=== PATIENT | female | born 1955 | race Caucasian/White ===

== ENCOUNTER 2016-10-29 15:06 | Emergency (ER) | payer BC ==
--- NOTE | 2016-10-29 17:16 | ED ---
General Adult HPI - General Chief complaint: Headache Stated complaint: severe headache-sent by Time Seen by Provider: 10/29/16 16:40 Source: patient, family, RN notes reviewed Mode of arrival: ambulatory Limitations: no limitations - History of Present Illness Initial comments: Plan and history of present illness this is a 60-year-old female here with her significant other. The patient reports she's had on-again off-again for several weeks developing symptoms of trigeminal neuralgia on the left side of her face just lateral to her right eye. The patient reports that she get an acute stabbing-type sensation that lasts only 1 or 2 seconds makes her close her eye and then it goes away. Occasionally triggered by opening her mouth wide. No pain to the TMJ otherwise. No other complaints no other symptoms and neurologically intact. No trauma. - Related Data Home Medications Medication Instructions Recorded Confirmed Cholecalciferol [Vitamin D3] 2,000 units PO DAILY 10/29/16 10/29/16 Ibuprofen [Advil] 200 mg PO Q8HR PRN 10/29/16 10/29/16 Multivitamins, Thera [Multivitamin 1 tab PO DAILY 10/29/16 10/29/16 (formulary)] Ubidecarenone [Co Q-10] 100 mg PO DAILY 10/29/16 10/29/16 Vitamin B Complex 1 cap PO DAILY 10/29/16 10/29/16 Previous Rx's Medication Instructions Recorded carBAMazepine [carBAMazepine ER] 200 mg PO BID #60 cpmp.12hr 10/29/16 Allergies Allergy/AdvReac Type Severity Reaction Status Date / Time amoxicillin [From Augmentin] Allergy SEVERE Verified 10/29/16 16:44 YEAST INFECTION clavulanic acid Allergy SEVERE Verified 10/29/16 16:44 [From Augmentin] YEAST INFECTION red dye Allergy Unknown Verified 10/29/16 16:44 Review of Systems ROS Statement: Those systems with pertinent positive or pertinent negative responses have been documented in the HPI. Review of systems patient otherwise denies any headache other than the one to 2 seconds of the lancinating pain she has when she has the patella room symptoms. This can coming go frequently or slows down entirely. But tends to be increasing of late. No balance problems no visual acuity changes no nausea no vomiting no sweats. No chest pain shows breath GI/ problems no neuro deficits other than tic douloureux. Patient never had any problems with left side of the face, no trauma no infections. All systems reviewed. Past medical problems none. Surgeries a randall in her right femur. Also fracture to her left wrist. She's also had tonsillectomy. Family history strokes and diabetes. Patient has an ALLERGY describes Augmentin because of vaginal yeast infection. The patient quit smoking May of this year. Denies alcohol use. ROS Other: All systems not noted in ROS Statement are negative. Past Medical History Past Medical History: No Reported History History of Any Multi-Drug Resistant Organisms: None Reported Past Surgical History: Orthopedic Surgery Past Psychological History: No Psychological Hx Reported Smoking Status: Former smoker Past Alcohol Use History: None Reported Past Drug Use History: None Reported General Exam - General Exam Comments Initial Comments: General: The patient is awake and alert, patient gets acute sharp pains the last 1-3 seconds at most just to the lateral aspect of her left eye. Not to the forehead not to the jaw area. Vital signs show temperature 98.0 pulse 80 respiratory rate 20 pulse ox 90% room air blood pressure 135/101. Eye: Pupils are equal, round and reactive to light, extra-ocular movements are intact ; there is normal conjunctiva bilaterally. No signs of icterus. Ears, nose, mouth and throat: There are moist mucous membranes and no oral lesions. No tooth problems. Neck: The neck is supple, there is no tenderness , no anterior cervical lymphadenopathy. No carotid bruit. Cardiovascular: There is a regular rate and rhythm. No murmur, rub or gallop is appreciated. Respiratory: Lungs are clear to auscultation, respirations are non-labored, breath sounds are equal. No wheezes, stridor, rales, or rhonchi. Gastrointestinal: No abdominal pain no nausea no vomiting no diarrhea. Back: There is no tenderness to palpation in the midline. There is no obvious deformity. No rashes noted. Musculoskeletal: Normal ROM, no tenderness, There is no pedal edema. There is no calf tenderness or swelling. Sensation intact. Neurological: CN II-XII intact, There are no obvious motor or sensory deficits. Coordination appears grossly intact. Speech is normal. Focal or lateralizing findings. Skin: Skin is warm and dry and no rashes or lesions are noted. No rashes. Early shingles was discussed but not noted. Limitations: no limitations Course Vital Signs 10/29/16 15:22 Temperature 98.0 F Pulse Rate 80 Respiratory 20 Rate Blood Pressure 135/101 O2 Sat by Pulse 98 Oximetry Medical Decision Making - Medical Decision Making Decision-making this time appears to the patient does have a tic douloureux or trigeminal neuralgia of the ophthalmic branch. No other pathology is noted in that around the ear I for head or mandible. Plan the patient will be referred onto her family physician and a neurologist. She'll be placed on carbamazepine 200 mg twice a day. Advised return emergency room as needed. Disposition Clinical Impression: Tic douloureux Disposition: HOME SELF-CARE Condition: Fair Instructions: Trigeminal Neuralgia (ED) Additional Instructions: Take medications as directed follow with family physician and on-call neurologist Prescriptions: carBAMazepine [carBAMazepine ER] 200 mg PO BID #60 cpmp.12hr Referrals: Dmitriy Miller DO [Primary Care Provider] - 1-2 days Helena Fragoso MD [STAFF PHYSICIAN] - 1-2 days Time of Disposition: 17:15
[2016-10-29 17:25] VITALS: RESP 18; TEMP 98.1
[2016-10-29] MEDS ORDERED: cloNIDine HCL 0.1 MG TAB PO STA (17:25)
[2016-10-29 18:01] VITALS: BP 154/83; PULSE 63
== END 2016-10-29 18:10 | disposition home or self-care (01) ==
LOC: EC 15:06
DX: G50.0 Trigeminal neuralgia (principal); Z87.891 Personal history of nicotine dependence; Z79.899 Other long term (current) drug therapy; Z88.0 Allergy status to penicillin; Z91.09 Other allergy status, other than to drugs and biological substances
CPT/HCPCS: 99283

== ENCOUNTER → 2017-02-04 | Outpatient (CLI) | payer BC ==
--- NOTE | 2017-02-04 09:18 | XR ---
EXAMINATION TYPE: XR thoracic spine complete DATE OF EXAM: 02/04/2017 COMPARISON: Correlation chest 02/15/2015 HISTORY: 61 year-old female recurrent thoracic. TECHNIQUE: 3 views FINDINGS: Vertebral compression deformity of T5 vertebral body with anterior wedging and 75% overall anterior h eight loss, new from 2014. Additional mild inferior endplate compression deformity of T8 with endplat e sclerosis. Additional mild endplate spondylosis is seen throughout. Alignment appears maintained. IMPRESSION: Age-indeterminate vertebral compression deformity of T5 though noted to be new from 2014. Additional mild inferior endplate compression injury of T8 is also age indeterminate but new from 2014. Correlat e for focal pain at these levels. Also, correlate for etiology.
== END ==
LOC: RADXRYALE 08:54
PROVIDERS: ATTEND Physician Assistant Medical
DX: M54.6 Pain in thoracic spine (principal)
CPT/HCPCS: 72072

== ENCOUNTER 2018-04-21 09:29 | Day surgery (SDC) | payer BC ==
[2018-04-18 10:04] VITALS: BMI 20.1
[~2018-04-21 09:29] MED LIST: LACTATED RINGERS 1,000 ML IV SCH; LIDOCAINE 1% 20 ML VIAL (10MG/ML) FOR IV START INTRADERMA PRN
[2018-04-21 09:58] VITALS: TEMP 98
[2018-04-21] MEDS ORDERED: PROPOFOL 10 MG/ML 20 ML VIAL IV ONE (11:29)
--- NOTE | 2018-04-21 11:55 | P.PCN ---
Date of Procedure: 04/21/18 Procedure(s) Performed: Procedure: Total colonoscopy. Preoperative diagnosis: Screening for neoplasia. Postoperative diagnosis: Exam within normal limits. Preparation: HalfLytely prep. Sedation: Was provided by anesthesia. Brief clinical history: The patient is a 62-year-old female who is scheduled for this evaluation for screening for neoplasia age being her risk factor. There is no family history of colon cancer. The patient has no abdominal complaints, bleeding or anemia. This would be her first colonoscopy. Procedure: With the patient on her left lateral decubitus position and after informed consent and adequate sedation, the perianal area was inspected and it did not show any fissures or fistulas. There were no masses felt on digital rectal examination. The Olympus CFQ 180L video colonoscope was then inserted in the rectum in the usual fashion and advanced to the cecum. The mucosa appeared healthy. No polyps or tumors were seen or any obvious diverticular disease or other pathology. I retroflexed the endoscope in the rectum before the endoscope was withdrawn. The patient tolerated the procedure well. Plan: The patient was reassured. She will follow-up with you as planned and I recommended repeat exam in 10 years.
[2018-04-21] MEDS ORDERED: ONDANSETRON 4 MG/2 ML VIAL IVP ONE (12:08)
[2018-04-21 12:43] VITALS: BP 166/79; PULSE 71; RESP 16
== END 2018-04-21 13:02 | disposition home or self-care (01) ==
LOC: ORWHC2ENDO 09:29
DX: Z12.11 Encounter for screening for malignant neoplasm of colon (principal); R01.1 Cardiac murmur, unspecified; Z88.0 Allergy status to penicillin; Z91.048 Other nonmedicinal substance allergy status; Z87.891 Personal history of nicotine dependence
CPT/HCPCS: J2405; J2704; G0121

== ENCOUNTER → 2019-01-05 | Outpatient (CLI) | payer MEDICARE ==
--- NOTE | 2019-01-05 16:02 | XR ---
EXAMINATION TYPE: XR knee complete RT DATE OF EXAM: 01/05/2019 COMPARISON: NONE HISTORY: 63-year-old female with mid to lateral knee pain after fall 2 days ago TECHNIQUE: 3 views FINDINGS: Extensor mechanism appears intact. No acute fracture seen. However, there is a small underlying joint effusion. Osteopenia. IMPRESSION: 1. Osteopenia. 2. No acute osseous abnormality seen. 3. However, there is a small knee joint effusion. If concern for internal derangement, MRI can be per formed.
== END | disposition home or self-care (01) ==
LOC: RADXRYALE 11:25
PROVIDERS: ATTEND Family Medicine
DX: M85.88 Other specified disorders of bone density and structure, other site (principal); M25.561 Pain in right knee

== ENCOUNTER → 2019-02-25 | Outpatient (CLI) | payer MEDICARE ==
--- NOTE | 2019-02-25 14:43 | US ---
EXAMINATION TYPE: US pelvic complete DATE OF EXAM: 02/25/2019 COMPARISON: NONE CLINICAL HISTORY: R10.2 Pelvic pain. Patient states during a doctor exam, doctor pressed on right tr e and it hurt. Partial hysterectomy x 20 years ago. Patient states she thinks she still has both ov watson TECHNIQUE: Transabdominal (TA). Transabdominal sonographic images of the pelvis were acquired Patient declined transvaginal exam Date of LMP: Partial hysterectomy EXAM MEASUREMENTS: Right Ovary: Not visualized Left Ovary: Not visualized 1. Uterus: Surgically absent 2. Endometrium: Surgically absent 3. Right Ovary: Obscured by overlying bowel gas 4. Left Ovary: Obscured by overlying bowel ga 5. Bilateral Adnexa: peristalsing bowel 6. Posterior cul-de-sac: No free fluid IMPRESSION: Surgical absence of the uterus. The ovaries are not seen, likely partially related to atr ophy as well as overlying bowel gas. Patient declined transvaginal exam to further attempt to visuali ze the ovaries.
== END | disposition home or self-care (01) ==
LOC: RADUSWWP 13:10
PROVIDERS: ATTEND Obstetrics & Gynecology
DX: R10.2 Pelvic and perineal pain (principal); Z90.710 Acquired absence of both cervix and uterus
CPT/HCPCS: 76856

== ENCOUNTER → 2019-03-19 | Outpatient (CLI) | payer MEDICARE ==
--- NOTE | 2019-03-19 16:25 | BD ---
EXAMINATION TYPE: Axial Bone Density DATE OF EXAM: 03/19/2019 COMPARISON: NONE CLINICAL HISTORY: 63-year-old female postmenopausal screening Height: 4 FT 11 1/2 IN Weight: 99 FRAX RISK QUESTIONS: History of Fracture in Adulthood: YES Secondary Osteoporosis: 3. Menopause before 45: UNSURE Rheumatoid Arthritis: YES Current Tobacco Use: YES RISK FACTORS HISTORY OF: Hip Fracture (Right/Left): RT AND LT When: RT 2005 LT 2015 History of Wrist Fracture: LEFT WRIST When: 2005 OR 2006 Surgery to Spine/Hip(right/left)/Wrist (right/left): YOLANDA HIP SURG When: 2005 AND 2015 Active: YES Postmenopausal woman: PART HYST 2002 OR 2003 Lost more than 2 inches in height since high school: YES MEDICATIONS: Additional Medications: NONE Additional History: EXAM MEASUREMENTS: Bone mineral densitometry was performed using the Thrinacia System. Bone mineral density as measured about the Lumbar spine is: ----- L1-L4(G/cm2): 0.714 T Score Values are as follows: ----- L2: -4.1 ----- L3: -4.0 ----- L4: -3.1 ----- L1-L4: -3.9 Bone mineral density has: DECREASED -6.2 SINCE STUDY OF 2014 Bone mineral density about the R Wrist (g/cm2): 0.294 T Score values are as follows: -----Dist. R+U: -6.5 -----Prox. R+U: -4.5 -----Radius total: -6.3 FIRST TIME WRIST HAS BEEN DONE IMPRESSION: Osteoporosis (T Score less than -2.5). There is increased fracture risk and therapy is usually indicated based on age. Re-Screen 1-2 years. NOTE: T-SCORE=SD OF THE YOUNG ADULT MEAN.
--- NOTE | 2019-03-20 14:03 | MM ---
Reason for exam: screening (asymptomatic). Last mammogram was performed 3 years and 10 months ago. History: Patient is postmenopausal. Family history of breast cancer in sister at age 50. Physical Findings: A clinical breast exam by your physician is recommended on an annual basis and results should be correlated with mammographic findings. MG 3D Screening Mammo W/Cad Bilateral CC and MLO view(s) were taken. Prior study comparison: May 24, 2015, bilateral MG screening mammo w CAD. Finding: There are faint, fine, regional calcifications in the middle position of the left breast on CC view. There is a chronic nodularity bilaterally. New finding since May 24, 2015. ASSESSMENT: Incomplete: need additional imaging evaluation, BI-RAD 0 RECOMMENDATION: Special view mammogram of the left breast. [facility] will attempt to contact patient to return for supplemental views.
== END | disposition home or self-care (01) ==
LOC: RADMAMWWP 14:13
PROVIDERS: ATTEND Obstetrics & Gynecology
DX: Z12.31 Encounter for screening mammogram for malignant neoplasm of breast (principal); M81.0 Age-related osteoporosis without current pathological fracture; N95.1 Menopausal and female climacteric states
CPT/HCPCS: 77063; 77067; 77080

== ENCOUNTER → 2019-04-06 | Outpatient (CLI) | payer MEDICARE ==
--- NOTE | 2019-04-06 10:12 | MM ---
Reason for exam: additional evaluation requested from abnormal screening. Last mammogram was performed 1 month ago. History: Patient is postmenopausal. Family history of breast cancer in sister at age 50. Physical Findings: Nurse did not find any significant physical abnormalities on exam. MG 3D Work Up W/Cad LT CC with magnification, ML with magnification, and ML view(s) were taken of the left breast. Prior study comparison: March 19, 2019, bilateral MG 3d screening mammo w/cad. May 24, 2015, bilateral MG screening mammo w CAD. The breast tissue is heterogeneously dense. This may lower the sensitivity of mammography. There is chronic nodularity in the left breast. A few faint punctate calcifications are suggested on the magnification CC view. Approximately 3 calcifications in each of two small groups. Not seen well on the lateral view. 6 month follow up recommended. These results were verbally communicated with the patient and result sheet given to the patient on 04/06/19. ASSESSMENT: Probably benign, BI-RAD 3 RECOMMENDATION: Follow-up diagnostic mammogram of the left breast in 6 months.
== END | disposition home or self-care (01) ==
LOC: RADMAMWWP 09:05
PROVIDERS: ATTEND Obstetrics & Gynecology
DX: R92.8 Other abnormal and inconclusive findings on diagnostic imaging of breast (principal)
CPT/HCPCS: 77065; G0279; 77061

== ENCOUNTER → 2019-07-29 | Outpatient (CLI) | payer MEDICARE ==
--- NOTE | 2019-07-29 11:59 | XR ---
EXAMINATION TYPE: XR sternum DATE OF EXAM: 07/29/2019 COMPARISON: NONE HISTORY: Right upper rib and sternal pain after fall yesterday TECHNIQUE: 2 views of the sternum were obtained FINDINGS: There is mild diffuse osseous demineralization slightly limiting the exam. Numerous costoch ondral calcifications also slightly limited exam. No gross acute displaced sternal fracture is seen. Questionable mid thoracic compression deformities (2 in number). IMPRESSION: 1. No gross evidence of acute displaced sternal fracture, slightly limited as described above. 2. Questionable mid thoracic compression deformities. Recommendation is for further evaluation with thoracic spine x-rays.
--- NOTE | 2019-07-29 12:10 | XR ---
EXAMINATION TYPE: XR ribs RT w pa chest xray DATE OF EXAM: 07/29/2019 CLINICAL HISTORY: Right upper anterior rib pain after fall TECHNIQUE: Single frontal view of the chest is obtained. 2 views of the right ribs were also obtained . COMPARISON: None FINDINGS: There is no focal air space opacity, pleural effusion, or pneumothorax seen. The cardiac silhouette size is within normal limits. The osseous structures are intact. Old healed rib fracture deformity is seen of the anterior lateral margin of rib 10 on the right. No acute displaced right ri b fractures seen. Mild diffuse osseous demineralization. Questionable mid thoracic compression deform ities IMPRESSION: 1. No acute displaced right rib fracture or acute cardiopulmonary process seen. Old healed fracture d eformity of the anterolateral margin of rib 10 on the right is subtle. 2. Questionable mid thoracic compression deformities. Recommendation is for further evaluation with thoracic spine x-rays.
== END | disposition home or self-care (01) ==
LOC: RADXRYALE 11:11
PROVIDERS: ATTEND Physician Assistant Medical
DX: M81.0 Age-related osteoporosis without current pathological fracture (principal); R07.89 Other chest pain; Z87.81 Personal history of (healed) traumatic fracture
CPT/HCPCS: 71120

== ENCOUNTER → 2020-04-27 | Outpatient (CLI) | payer MEDICARE ==
--- NOTE | 2020-04-28 10:29 | MM ---
Reason for exam: additional evaluation requested from prior study. Last mammogram was performed 1 year and 1 month ago. History: Patient is postmenopausal. Family history of breast cancer in sister at age 50. Physical Findings: Nurse did not find any significant physical abnormalities on exam. MG 3D Diag Mammo W/Cad YOLANDA Bilateral CC and MLO view(s) were taken. Prior study comparison: April 06, 2019, left breast MG 3d work up w/cad LT. March 19, 2019, bilateral MG 3d screening mammo w/cad. There are scattered fibroglandular densities. Finding: There is an intermediate concern, suspicious irregular mass in the upper outer quadrant of the right breast. New finding since April 06, 2019 and March 19, 2019. These results were verbally communicated with the patient and result sheet given to the patient on 04/27/20. ASSESSMENT: Incomplete: need additional imaging evaluation, BI-RAD 0 RECOMMENDATION: Ultrasound of the right breast.
--- NOTE | 2020-04-28 10:36 | USB ---
Reason for exam: additional evaluation requested from abnormal screening. History: Patient is postmenopausal. Family history of breast cancer in sister at age 50. US Breast Limited RT Right limited breast ultrasound including focal area of concern, retroareolar and axilla demonstrates a 0.6 x 0.3 x 0.8cm oval, solid lymph node at 9 o'clock. These results were verbally communicated with the patient and result sheet given to the patient on 04/27/20. ASSESSMENT: Benign, BI-RAD 2 RECOMMENDATION: Routine screening mammogram of both breasts in 1 year.
== END | disposition home or self-care (01) ==
LOC: RADMAMWWP 13:38
PROVIDERS: ATTEND Obstetrics & Gynecology
DX: R92.8 Other abnormal and inconclusive findings on diagnostic imaging of breast (principal)
CPT/HCPCS: 77066; 76642; G0279; 77062

== ENCOUNTER 2020-06-14 18:05 | Emergency (ER) | payer MEDICARE ==
[2020-06-14 18:11] VITALS: RESP 18; TEMP 97.7
--- NOTE | 2020-06-14 18:28 | ED ---
Lower Extremity Injury HPI - General Source: patient Mode of arrival: wheelchair Limitations: no limitations <Ryan Keane - Last Filed: 06/14/20 20:14> <Francia Weiner - Last Filed: 06/14/20 23:59> - General Chief Complaint: Extremity Injury, Lower Stated Complaint: fall/ankle injury Time Seen by Provider: 06/14/20 18:11 - History of Present Illness Initial Comments: 64-year-old male presenting to the emergency room with a chief complaint of ankle pain. Patient reports incident occurred about one hour prior to arrival. Patient states she was walking down the stairs to her basement when on the last step, she had an right inversion injury. She denies any numbness or tingling. Patient does have history of fractures. Patient does report taking ibuprofen which helped alleviate the discomfort. Patient does not want any pain medication at this time. She states the pain is about a 5 and sharp (Ryan Keane) - Related Data Home Medications Medication Instructions Recorded Confirmed Ibuprofen [Advil] 400 mg PO Q8HR PRN 04/18/18 06/14/20 Multivit with Calcium,Iron,Min 1 tab PO DAILY 04/18/18 06/14/20 [Women's Multivitamin] Calcium Citrate/Vitamin D3 2 tab PO DAILY 06/14/20 06/14/20 [Citracal + D Maximum Caplet] Cholecalciferol [Vitamin D3 (25 25 mcg PO DAILY 06/14/20 06/14/20 Mcg = 1000 Iu)] Estradiol Cream [Estrace Cream 2 gm VAGINAL DIRECTED 06/14/20 06/14/20 0.01%] Allergies Allergy/AdvReac Type Severity Reaction Status Date / Time red dye Allergy Unknown Verified 06/14/20 18:40 amoxicillin [From Augmentin] AdvReac SEVERE Verified 06/14/20 18:40 YEAST INFECTION clavulanic acid AdvReac SEVERE Verified 06/14/20 18:40 [From Augmentin] YEAST INFECTION pumpkin seeds Allergy Swelling Uncoded 06/14/20 18:11 Review of Systems ROS Other: All systems not noted in ROS Statement are negative. <Ryan Keane - Last Filed: 06/14/20 20:14> ROS Other: All systems not noted in ROS Statement are negative. <Francia Weiner - Last Filed: 06/14/20 23:59> ROS Statement: Those systems with pertinent positive or pertinent negative responses have been documented in the HPI. Past Medical History Past Medical History: No Reported History Additional Past Medical History / Comment(s): hx. heart murmur-no tx. for History of Any Multi-Drug Resistant Organisms: None Reported Past Surgical History: Orthopedic Surgery Additional Past Surgical History / Comment(s): ORIF right femur, ORIF left hip fx., ORIF left wrist Past Anesthesia/Blood Transfusion Reactions: No Reported Reaction Past Psychological History: No Psychological Hx Reported Smoking Status: Current every day smoker Past Alcohol Use History: None Reported Past Drug Use History: None Reported - Past Family History Father Family Medical History: Diabetes Mellitus Mother Family Medical History: Diabetes Mellitus, Hypertension <Ryan Keane Last Filed: 06/14/20 20:14> General Exam Limitations: no limitations General appearance: alert, in no apparent distress Head exam: Present: atraumatic, normocephalic, normal inspection Eye exam: Present: normal appearance, PERRL, EOMI Pupils: Present: normal accommodation ENT exam: Present: normal exam, normal oropharynx, mucous membranes moist Neck exam: Present: normal inspection, full ROM. Absent: tenderness Respiratory exam: Present: normal lung sounds bilaterally. Absent: wheezes, rales Cardiovascular Exam: Present: regular rate, normal rhythm, normal heart sounds Extremities exam: Present: tenderness (Medial and lateral malleoli tenderness. No midfoot or fifth metatarsal tenderness.), normal capillary refill, other (Palpable DP and PT bilaterally.). Absent: normal inspection (Mild swelling noted on the lateral malleolus of the right foot.), full ROM (Limited range of motion with inversion and plantar and dorsiflexion of the right foot), pedal edema, joint swelling, calf tenderness Back exam: Present: normal inspection, full ROM Neurological exam: Present: alert, oriented X3 Psychiatric exam: Present: normal affect, normal mood Skin exam: Present: warm, dry, intact, normal color <Ryan Keane Last Filed: 06/14/20 20:14> Course Vital Signs 06/14/20 06/14/20 18:09 19:26 Temperature 97.7 F Pulse Rate 100 99 Respiratory 18 18 Rate Blood Pressure 192/80 168/97 O2 Sat by Pulse 100 98 Oximetry Procedures - Orthopedic Splinting/Casting Injury #1 Side: right Lower Extremity Injury Location: short leg Lower Extremity Immobilizer: posterior splint, stirrup splint, Buddy wrap, synthetic pre-padded splint Other Orthopedic Equipment: crutches <Ryan Keane - Last Filed: 06/14/20 20:14> Medical Decision Making <Ryan Keane - Last Filed: 06/14/20 20:14> <Francia Weiner - Last Filed: 06/14/20 23:59> - Medical Decision Making 64-year-old female presenting to emergency Department with chief complaint of right ankle fracture. Physical examination reveals mild tenderness to the bilateral malleoli. She is otherwise neurovascularly intact. X-ray reveals an acute trimalleolar fracture of the right ankle without significant overall displacement. I contacted who states that the patient can be splinted and they can follow-up in the office in 2 days. I offered the patient analgesia, she declined. Patient states the Advil is working well for her. I applied a posterior and ankle stirrup splint on the right leg. Patient will be given crutches. She will follow up outpatient with an library media specialist. Return parameters discussed the patient was understanding and agreeable. Case discussed with physician. (Ryan Keane) I was available for consultation in the emergency department. The history and physical exam were done by the midlevel provider. I was consulted for this patients care. I reviewed the case with the midlevel provider and based on their presentation of the patient, I agree with the assessment, medical decision making and plan of care as documented. Chart was dictated using [employer] dictation software. Attempts were made to correct any dictation errors however some typographical errors may persist. Patient was seen during a national state of emergency due to the Covid-19 pandemic. (Francia Weiner) Disposition Is patient prescribed a controlled substance at d/c from ED?: No Time of Disposition: 20:19 <Ryan Keane - Last Filed: 06/14/20 20:14> <Francia Weiner - Last Filed: 06/14/20 23:59> Clinical Impression: Trimalleolar fracture of right ankle Disposition: HOME SELF-CARE Condition: Stable Instructions (If sedation given, give patient instructions): Ankle Fracture (DC) Additional Instructions: follow-up with . Alternate between Tylenol and Motrin for pain control. Return to emergency department if symptoms worsen. Referrals: Dmitriy Miller DO [Primary Care Provider] - 1-2 days Harvey Rios DO [Doctor of Osteopathic Medicine] - 1-2 days
--- NOTE | 2020-06-14 18:50 | XR ---
EXAMINATION TYPE: XR ankle complete RT DATE OF EXAM: 06/14/2020 COMPARISON: NONE HISTORY: Pain. Injury. TECHNIQUE: 3 views FINDINGS: There is comminuted fracture of the distal tibia with vertical fracture through the medial malleolus. There is intra-articular fracture of the tibia and also apparent large posterior chip frac ture of the posterior malleolus. There is transverse fracture of the distal fibula. There is 4 mm lat eral displacement of the distal fragment. There is no dislocation. IMPRESSION: There is acute trimalleolar fracture of the ankle without significant overall displacemen t.
[2020-06-14 19:27] VITALS: BP 168/97; PULSE 99
--- NOTE | 2020-06-14 20:14 | CT ---
CT scan of the right ankle. History fracture. Pain. Comparison none. TECHNIQUE: Multiple axial sections were obtained without contrast from the bottom of the foot to the mid tibia. FINDINGS: There is transverse comminuted fracture of the distal tibia. There is also vertical fracture through the medial malleolus. There is also a 2 x 1 cm nondisplaced large chip fracture of the posterior mall eolus. There is some impaction of the tibial fracture. There is a transverse fracture with comminution of the distal fibula. There is impaction of the fragm ents and 6 mm lateral displacement of the major fragment. There is no dislocation. The talus is intact. The subtalar joint is intact. Calcaneus is intact. The bones of the mid foot juan ear intact. The metatarsals are intact. There is mild soft tissue swelling over the lateral malleolus . IMPRESSION: Impacted comminuted intra-articular trimalleolar fracture of the ankle. There is overall not a signif icant displacement of the fragments.
== END 2020-06-14 20:45 | disposition home or self-care (01) ==
LOC: EC 18:05
DX: S82.854A Nondisplaced trimalleolar fracture of right lower leg, initial encounter for closed fracture (principal); F17.200 Nicotine dependence, unspecified, uncomplicated; Z88.0 Allergy status to penicillin; Z88.1 Allergy status to other antibiotic agents; Z91.018 Allergy to other foods; Z91.041 Radiographic dye allergy status; W10.9XXA Fall (on) (from) unspecified stairs and steps, initial encounter; Y93.01 Activity, walking, marching and hiking; Y92.89 Other specified places as the place of occurrence of the external cause
CPT/HCPCS: 29515; 99284

== ENCOUNTER 2020-06-21 08:03 | Day surgery (SDC) | payer MEDICARE ==
[2020-06-20 09:02] VITALS: BMI 19.0
--- NOTE | 2020-06-20 09:13 | HP ---
HISTORY AND PHYSICAL CHIEF COMPLAINT: Right ankle pain. HISTORY OF PRESENT ILLNESS: The patient is a 64-year-old female who presents with right ankle pain after an injury on 06/14/2020. She was walking into her basement when she missed a step and twisted her ankle. Initially, she was seen in the emergency room and was placed in a splint. She has been nonweightbearing since. She denies previous injury. PAST MEDICAL HISTORY: Significant for hypertension. PAST SURGICAL HISTORY: Significant for fixation of a left wrist fracture and a left femur fracture. CURRENT MEDICATIONS: Vitamin D. ALLERGIES: She has allergies to RED DYE. FAMILY HISTORY: Significant for stroke and cancer. SOCIAL HISTORY: Significant for 1/4 pack per day tobacco use. REVIEW OF SYSTEMS: Sixteen-point review of systems otherwise reviewed and is noncontributory. PHYSICAL EXAMINATION: On examination, the patient is approximately 5 feet 2 inches, 105 pounds of ectomorphic habitus. HEENT exam is nonfocal. Neck is supple. She has painless passive motion of the right hip. She is nontender about the right knee and proximal fibula. On examination of her right ankle, she has moderate medial and lateral swelling. Skin is intact. She is tender over the medial malleolus and distal tibia along with the distal fibula. No mid or forefoot tenderness is noted. Her distal neurovascular exam appears intact in the right lower extremity. X-rays of the right ankle obtained from 06/14/2020 shows evidence of a distal tibial pilon fracture with mild displacement along with a comminuted lateral malleolar fracture with shortening. CT scan of the same ankle confirms those findings. IMPRESSION: Right distal tibial pilon fracture with lateral malleolar fracture. RECOMMENDATIONS: I talked to the patient and her at length regarding her condition and treatment options. At this point, I recommend proceeding with surgical intervention. We will plan to proceed with open reduction and internal fixation of the right distal tibial pilon fracture with fixation of the distal fibula as well. Risks and benefits were discussed at length in layman's terms. Potentially we will keep the patient for a 23- hour hold postoperatively. MMODL / IJN: [id number] /
[~2020-06-21 08:03] MED LIST changes: +DEXAMETHASONE SOD PHOSPHATE 4 MG/ML 1 ML VIAL IV ONE; -LACTATED RINGERS 1,000 ML IV SCH; -LIDOCAINE 1% 20 ML VIAL (10MG/ML) FOR IV START INTRADERMA PRN; +ONDANSETRON 4 MG/2 ML VIAL IVP ONE
[2020-06-21] MEDS: LACTATED RINGERS 1,000 ML IV SCH (08:50)
[2020-06-21] MEDS ORDERED: LIDOCAINE 1% (10MG/ML) FOR IV START INTRADERMA ONE (08:50)
[2020-06-21 09:44] LABS: Basophils # (A) 0.1 k/uL (0-0.2); Basophils % (A) 1 %; Eosinophils # (A) 0.1 k/uL (0-0.7); Eosinophils % (A) 2 %; HCT 37.4 % (34.0-46.0); HGB 12.1 gm/dL (11.4-16.0); Lymphocytes # (A) 1.4 k/uL (1.0-4.8); Lymphocytes % (A) 18 %; MCH 31.9 pg (25.0-35.0); MCHC 32.4 g/dL (31.0-37.0); MCV 98.4 fL (80.0-100.0); Mean Platelet Volume 7.4; Monocytes # (A) 0.4 k/uL (0-1.0); Monocytes % (A) 5 %; Neutrophils # (A) 5.9 k/uL (1.3-7.7); Neutrophils % (A) 73 %; Platelet Count 307 k/uL (150-450); RDW 13.9 % (11.5-15.5); WBC 8.1 k/uL (3.8-10.6)
[2020-06-21] MEDS ORDERED: ePHEDrine SULFATE/0.9% NACL/PF 50 MG/5 ML SYRINGE IV ONE (10:11)
[2020-06-21] MEDS ORDERED: PHENYLEPHRINE 10 MG/ML VIAL ONE (10:11)
[2020-06-21] MEDS ORDERED: fentaNYL (PF) 50 MCG/ML 2 ML AMP ONE (10:11)
[2020-06-21] MEDS ORDERED: LIDOCAINE 1% INJ 10MG/ML (20 ML MDV) ONE (10:11)
[2020-06-21] MEDS ORDERED: PROPOFOL 10 MG/ML 20 ML VIAL IV ONE (10:11)
[2020-06-21] MEDS ORDERED: MIDAZOLAM 2 MG/2 ML VIAL ONE (10:11)
--- NOTE | 2020-06-21 12:12 | XR ---
Fluoroscopy History: ORIF rt ankle Radiology provided fluoroscopic time for ORIF of the ankle.
[2020-06-21] MEDS ORDERED: LACTATED RINGERS 1,000 ML IV ONE (12:36)
[2020-06-21] MEDS ORDERED: NALOXONE 0.4 MG/ML 1 ML VIAL IV PRN (12:41)
[2020-06-21] MEDS ORDERED: HYDROcodone/APAP 7.5-325MG 1 EACH TAB PO PRN (12:41)
[2020-06-21] MEDS ORDERED: ONDANSETRON 4 MG/2 ML VIAL IVP PRN (12:41)
[2020-06-21] MEDS ORDERED: HYDROcodone/APAP 5-325MG 1 EACH TAB PO PRN (12:41)
[2020-06-21] MEDS ORDERED: HYDROmorphone 0.5 MG/0.5 ML SYRINGE IVP PRN (12:41)
[2020-06-21] MEDS ORDERED: HYDROmorphone 1 MG/ML 1 ML SYRINGE IVP PRN (12:41)
--- NOTE | 2020-06-21 12:41 | P.OP ---
Date of Procedure: 06/21/20 Preoperative Diagnosis: Right tibial pilon fracture/distal fibular fracture Postoperative Diagnosis: Same Procedure(s) Performed: Open reduction and internal fixation right distal tibial pilon fracture/distal fibula fracture Implants: Arthrex 6-hole medial distal tibial plate, lateral distal fibular plate Anesthesia: AVELINO Surgeon: Shashi Llamas Estimated Blood Loss (ml): 10 Pathology: none sent Condition: stable Disposition: PACU Indications for Procedure: The patient is a 64-year-old female who presents with right ankle pain after a recent fall. Upon evaluation she is noted have a displaced right distal tibial pilon fracture with a comminuted distal fibular fracture. A discussion of the risks and benefits of operative intervention was made with the patient and her . She opted to proceed with surgery. Operative risks to include inf ection, neurovascular injury, development of blood clots, possible development of malunion/nonunion, possible need for subsequent procedures was discussed. Informed consent was obtained. Operative Findings: As below Description of Procedure: The patient was brought to the operating room, and after induction of general anesthesia the right lower extremity was prepped and draped in normal fashion. The tourniquet was inflated to 270 mmHg. An 8 cm incision was then made along the posterior lateral subcu border of the fibula. Skin was incised sharply. Subcu tissues were divided bluntly. Electrocautery was used for hemostasis. The fracture site was identified and cleaned of clot and debris. There was significant comminution of the distal fibula. A lateral plate was attached proximally with 3.5 mm cortical screws the appropriate length. 2.9 mm cortical screws were placed distally. Fluoroscopy was used to aid in the positioning of this. I was able to restore fibular length. Attention was then paid towards the distal tibial fracture. A 9 cm incision was made centered over the medial malleolus and the distal medial tibia. Skin was incised sharply. Subcu tissue tissues were divided bluntly. A 6-hole medial precontoured tibial plate was then placed with the aid of fluoroscopy. It was attached proximally with 3.5 mm cortical screws the appropriate length. Distally 2.9 mm cortical screws were placed distally. Final fluoroscopic views to include AP, mortise, and lateral view showed adequate evangelical of the articular surface and placement of the implant. The mortise appeared to be intact. The wounds were irrigated with normal saline. The subcutaneous tissues reapproximated interrupted 2-0 Vicryl sutures. The skin was approximated with 3-0 subcuticular Prolene suture. Steri-Strips were applied. The tourniquet was deflated the proximal a 75 minutes total tourniquet time. A bulky Gunn splint was placed. The patient was then awoken from general anesthesia and transferred to recovery room in good condition. Blood loss was estimated at 10 mL. No complications were incurred. Sponge and needle counts were correct at the end the case.
[2020-06-21] MEDS: HYDROmorphone 0.5 MG/0.5 ML SYRINGE IVP PRN ×2 (12:42→12:59)
--- NOTE | 2020-06-22 01:11 | CONS ---
CONSULTATION DATE OF SERVICE: 06/21/2020. REASON FOR CONSULTATION: Advice regarding heart murmur and other medical issues, requested by Orthopedic Surgery. HISTORY OF PRESENT ILLNESS: This 64-year-old woman with a past history of heart murmur, history of DJD, history of nicotine dependence, being followed by Dr. Dmitriy Miller in the outpatient setting, apparently twisted his ankle while going to the basement and suffered an ankle fracture and lateral malleolar fracture. The patient underwent ORIF of the ankle by Dr. Llamas today. There is no history of fever, rigors. No headache or loss of consciousness, chest pain, palpitations. The patient reports significant weight loss about 100 pounds over several months during the summer which was not extensively evaluated. PAST MEDICAL HISTORY: History of hysterectomy, history of DJD, history of nicotine dependence, history of weight loss as mentioned earlier. MEDICATIONS: Home medications are Tylenol, women's multivitamins, Advil and vitamin D3. ALLERGIES: RED DYE AND AUGMENTIN, PUMPKIN SEEDS. FAMILY HISTORY: History of diabetes in the family. SOCIAL HISTORY: Previous history of smoking. No history of alcohol intake. REVIEW OF SYSTEMS: ENT: No diminished vision. No diminished hearing. CARDIOVASCULAR system: No angina. RESPIRATION: As mentioned earlier. GI: No nausea or vomiting. : No dysuria. NERVOUS SYSTEM: No numbness or weakness. ALLERGY/IMMUNOLOGY: No asthma or hayfever. MUSCULOSKELETAL: As mentioned earlier. HEMATOLOGY/ONCOLOGY: No history of anemia. ENDOCRINE: No history of diabetes mellitus or hypothyroidism. CONSTITUTIONAL: As mentioned earlier. DERMATOLOGY: Negative. RHEUMATOLOGY: Negative. PSYCH as mentioned earlier. PHYSICAL EXAM: Alert and oriented times three. Pulse 103, blood pressure 119/99, respiration 18, temperature normal, pulse ox 98% on room air. HEENT: Conjunctivae normal. NECK: No JVD. CARDIOVASCULAR: S1, S2 normal. RESPIRATORY: Breath sounds diminished in the bases. No rhonchi. No crackles. ABDOMEN: Soft, nontender. Legs right ankle repair Nervous system no focal deficit Skin no ulcer rash bleeding Lymphatic system no lymph node neck axilla or groin History of hysterectomy History of cardiac murmur History of ORIF Plan I would recommend to resume the home medications. Incentive spirometry. DVT prophylaxis. I would also recommend uric micro-. Smoking cessation has been advised. Would recommend close follow-up with the primary physician after discharge. Thank you Dr. Llamas for letting us participate in the care of this patient. A copy of this dictation [address] Moreno who is the primary physician. [id number] / IJN: [id number] / MTDD
[2020-06-22] MEDS: Acetaminophen-Codeine 300-30mg TAB PO PRN ×3 (04:08→11:25)
[2020-06-22] MEDS: LACTATED RINGERS 1,000 ML IV SCH (06:13)
[2020-06-22 08:02] VITALS: BP 157/80; PULSE 97; RESP 16; TEMP 97.7
[2020-06-22 08:11] LABS: Appearance,Urine Cloudy (Clear); Bacteria,Urine Occasional /hpf; Bilirubin,Urine Negative (Negative); Blood,Urine Moderate (Negative); Color,Urine Colorless; Glucose,Urine (UA) Negative (Negative); Ketones,Urine Negative (Negative); Leukocyte Esterase,Urine Large (Negative); Mucus,Urine Rare /hpf; Nitrite,Urine Negative (Negative); PH, Urine 6.5 (5.0-8.0); Protein,Urine Negative (Negative); RBC,Urine 14 /hpf (0-5); Specific Gravity,Urine 1.006 (1.001-1.035); Squamous Epithelial Cell,Urine <1 /hpf (0-4); Urobilinogen,Urine <2.0 mg/dL (<2.0); WBC,Urine 170 /hpf (0-5)
[2020-06-22] MEDS ORDERED: NON FORMULARY DRUG (Calcium Citrate/Vitamin D3 [Citracal + D Maximum Caplet] 1 EACH Tablet PO SCH (09:00)
[2020-06-22] MEDS ORDERED: CHOLECALCIFEROL 25 MCG (1000 IU) TABLET PO SCH (09:00)
[2020-06-22] MEDS ORDERED: ASPIRIN 325 MG TAB PO SCH (09:00)
[2020-06-22] MEDS ORDERED: MULTIVITAMINS, THERA 1 EACH TAB PO SCH (09:00)
--- NOTE | 2020-06-22 13:22 | P.PN ---
Subjective Progress Note Date: 06/22/20 Principal diagnosis: Status post ORIF left distal tibial pilon fracture Patient notes mild pain last night controlled with oral analgesia. She notes good return of bowel and bladder function. She did complete therapy today. Objective - Vital Signs Vital signs: Vital Signs Temp 97.7 F 06/22/20 08:00 Pulse 97 06/22/20 08:00 Resp 16 06/22/20 08:00 BP 157/80 06/22/20 08:00 Pulse Ox 96 06/22/20 08:00 Intake & Output 06/21/20 06/22/20 06/22/20 18:59 06:59 18:59 Intake Total 1630 240 580 Output Total 205 800 Balance 1425 -560 580 Weight 47.174 kg Intake: IV 1450 Oral 180 240 580 Output: Urine 200 800 Estimated Blood Loss 5 Other: Voiding Method Bedpan # Voids 2 7 1 - Exam Right lower extremity splint intact. Light touch intact right toes. Capillary refill less than 2 seconds. No pain with passive stretch right toes. - Labs CBC & Chem 7: 06/21/20 09:35 Labs: Abnormal Lab Results - Last 24 Hours (Table) 06/22/20 Range/Units 07:30 Urine Appearance Cloudy H (Clear) Urine Blood Moderate H (Negative) Ur Leukocyte Esterase Large H (Negative) Urine RBC 14 H (0-5) /hpf Urine WBC 170 H (0-5) /hpf Urine Bacteria Occasional H (None) /hpf Urine Mucus Rare H (None) /hpf Assessment and Plan Assessment: Status post ORIF right distal tibial pilon fracture Urinary tract infection Plan: Discharge home today. Nonweightbearing right leg with walker/wheelchair. Daily aspirin daily. Follow-up 2 weeks. Antibiotics per medicine. Time with Patient: Less than 30
--- NOTE | 2020-06-22 13:28 | P.DS ---
Providers Date of admission: 06/21/2020 Expected date of discharge: 06/22/20 Attending physician: Shashi Llamas Consults: 06/21/20 14:51 Consult Physician Routine Consulting Provider: Callie Westfall Consult Reason/Comments: medical management Do you want consulting provider notified?: Yes Primary care physician: [facility] Course: The patient underwent open reduction and internal fixation of a right distal tibial [place]/distal fibular fracture without complication. Postoperatively she did well and her pain was controlled with oral analgesics. She had good re turn of bowel and bladder function. She was seen by physical therapy and cleared. She was seen by internal medicine and was started on antibiotics for urinary tract infection. Upon discharge was afebrile with stable vital signs. Assessment: Status post open reduction internal fixation right distal tibial pilon fracture/distal fibula fracture Urinary tract infection Procedures: ORIF right distal tibial pilon/distal fibular fracture Patient Condition at Discharge: Good Plan - Discharge Summary Discharge Rx Participant: No New Discharge Prescriptions: New Acetaminophen-Codeine 300-30mg [Tylenol w/codeine #3] 1 tab PO Q4H PRN 7 Days #30 tablet PRN Reason: Pain No Action Ibuprofen [Advil] 400 mg PO Q8HR PRN PRN Reason: Pain Multivit with Calcium,Iron,Min [Women's Multivitamin] 1 tab PO DAILY Cholecalciferol [Vitamin D3 (25 Mcg = 1000 Iu)] 25 mcg PO DAILY Calcium Citrate/Vitamin D3 [Citracal + D Maximum Caplet] 2 tab PO DAILY Acetaminophen [Tylenol Extra Strength] 1,000 mg PO Q6H PRN PRN Reason: Pain Discharge Medication List Ibuprofen [Advil] 400 mg PO Q8HR PRN 04/18/18 [History] Multivit with Calcium,Iron,Min [Women's Multivitamin] 1 tab PO DAILY 04/18/18 [History] Calcium Citrate/Vitamin D3 [Citracal + D Maximum Caplet] 2 tab PO DAILY 06/14/20 [History] Cholecalciferol [Vitamin D3 (25 Mcg = 1000 Iu)] 25 mcg PO DAILY 06/14/20 [History] Acetaminophen [Tylenol Extra Strength] 1,000 mg PO Q6H PRN 06/20/20 [History] Acetaminophen-Codeine 300-30mg [Tylenol w/codeine #3] 1 tab PO Q4H PRN 7 Days #30 tablet 06/22/20 [Rx] Follow up Appointment(s)/Referral(s): [facility],[place] [facility] [NON-STAFF] - [address] Needed [address],[place] [NON-STAFF] - As Needed Shashi Llamas MD [STAFF PHYSICIAN] - 2 Weeks Activity/Diet/Wound Care/Special Instructions: Keep splint intact. Ice and elevate right leg as needed. Nonweightbearing with walker right lower extremity. Baby aspirin daily. Antibiotics for urinary tract infection per medicine. Discharge Disposition: HOME SELF-CARE
--- NOTE | 2020-06-22 15:53 | PN ---
PROGRESS NOTE DATE OF SERVICE: 06/22/2020 This 64-year-old woman who was admitted after right ankle ORIF is being closely monitored. No chest pain. No palpitations. No fever. The patient also had acute UTI. PHYSICAL EXAMINATION: Alert and oriented x3. Pulse is 97, blood pressure 157/80, respiration 16, temperature 97.7, pulse ox 96% on room air. HEENT: Conjunctivae normal. NECK: No jugular venous distention. CARDIOVASCULAR: S1, S2 muffled. RESPIRATORY: Breath sounds diminished at the bases. No rhonchi, no crackles. ABDOMEN: Soft. LEGS: Status post ankle surgery. NERVOUS SYSTEM: No focal deficits. LABS: CBC, UTI. Other labs are noted. ASSESSMENT: 1. Status post right ankle ORIF. 2. Acute urinary tract infection, present on admission. 3. History of hysterectomy. 4. History of degenerative joint disease. 5. History of nicotine dependence. 6. FULL CODE. 7. Mild protein calorie malnutrition. RECOMMENDATIONS AND DISCUSSION: I recommend to continue current medications. Continue symptomatic treatment. Resume the home medications. DVT prophylaxis. Incentive spirometry. Short course of antibiotics. The rest of the recommendations per Orthopedic Surgery. Recommend close followup with primary physician in the outpatient setting. Further recommendations to follow. Follow with Dr. Miller in 2 to 3 days or p.r.n. SHEA / JORJEN: [id number] /
== END 2020-06-22 15:19 | disposition home or self-care (01) ==
LOC: OR 08:03 → 6NMEDSUR 13:17 → OR 06-22 15:19
PROVIDERS: ATTEND Orthopaedic Surgery
DX: S82.871A Displaced pilon fracture of right tibia, initial encounter for closed fracture (principal); S82.451A Displaced comminuted fracture of shaft of right fibula, initial encounter for closed fracture; X50.1XXA Overexertion from prolonged static or awkward postures, initial encounter; I10 Essential (primary) hypertension; Z91.041 Radiographic dye allergy status; Z82.3 Family history of stroke; Z80.9 Family history of malignant neoplasm, unspecified; E44.1 Mild protein-calorie malnutrition; N39.0 Urinary tract infection, site not specified; Z90.710 Acquired absence of both cervix and uterus; Z87.891 Personal history of nicotine dependence; Z88.0 Allergy status to penicillin; Z88.1 Allergy status to other antibiotic agents; Z83.3 Family history of diabetes mellitus
CPT/HCPCS: 93005; 97162; 97166; 85025; 81001; 87086; 73600; 27828; C1713; J2250; J1100; J2370; J0690 ×3; J2405; J2001; J0696; J3010; J1170 ×3; J2704

== ENCOUNTER → 2020-11-15 | Outpatient (CLI) | payer MEDICARE ==
--- NOTE | 2020-11-16 08:21 | XR ---
EXAMINATION TYPE: XR foot complete RT, XR Hip Complete RT DATE OF EXAM: 11/15/2020 COMPARISON: 06/21/2020 04/03/2017 HISTORY: Pain after fall. History of open reduction internal fixation of the right ankle. FINDINGS: PA, lateral and oblique views of the right post were obtained. Severe bony demineralization is seen. This limits evaluation for acute fracture. There is no definite evidence of acute fracture or disloca tion of the right foot. Plate and screw fixation device is seen at the distal ankle involving the dis cielo tibia and fibula. Soft tissues are unremarkable. Right hip: AP and frog lateral view of the right hip were obtained. No evidence of acute fracture or dislocation of the right hip. There is bony demineralization. Right hip fixation hardware appears int act. IMPRESSION: 1. No evidence of acute fracture or dislocation of the right foot. Sideplate and screw fixation devic e is seen at the right tibia and fibula distally. 2. Right hip fixation hardware is seen. No evidence of acute fracture of the right hip. 3. Bony demineralization limits evaluation for acute fracture of the right foot and right hip.
== END | disposition home or self-care (01) ==
LOC: RADXRYALE 16:11
PROVIDERS: ATTEND Family Medicine
DX: M79.671 Pain in right foot (principal); M25.551 Pain in right hip; W19.XXXA Unspecified fall, initial encounter
CPT/HCPCS: 73502

== ENCOUNTER → 2021-01-25 | Outpatient (CLI) | payer MEDICARE ==
--- NOTE | 2021-01-25 09:07 | CT ---
EXAMINATION TYPE: CT brain wo con DATE OF EXAM: 01/25/2021 COMPARISON: None INDICATION: Dizziness, headache, mild cognitive impairment DLP: 943.8 mGycm, Automated exposure control for dose reduction was used. CONTRAST: None CT of the brain is performed utilizing 3 mm thick sections through the posterior fossa and 3 mm thick sections through the remaining calvarium. Study is performed within 24 hours of arrival to the hosp ital. No abnormal hyperdensity is present to suggest an acute intracranial hemorrhage. No mass lesion is evident. No acute infarcts are evident. Periventricular white matter hypodensity is present, likely on the bas is of chronic white matter ischemic changes. Ventricles and sulci are appropriate for the patient age. Paranasal sinuses and mastoid air cells within the [id number] are clear. IMPRESSIONS: 1. Periventricular white matter ischemic-type changes.
== END | disposition home or self-care (01) ==
LOC: RADCTMAIN 06:47
PROVIDERS: ATTEND Family Medicine
DX: G31.84 Mild cognitive impairment of uncertain or unknown etiology (principal); I10 Essential (primary) hypertension; R42 Dizziness and giddiness; R51.9 Headache, unspecified
CPT/HCPCS: 70450

== ENCOUNTER → 2022-01-20 | Outpatient (CLI) | payer MEDICARE ==
[2022-01-20 17:14] LABS: African American GFR (CKD) 76.1 (60.0-200.0); Calcium 10.3 mg/dL (8.7-10.3); Carbon Dioxide 27.2 mmol/L (20.0-27.5); Non-African American GFR(CKD) 65.7 (60.0-200.0); Uric Acid 5.4 mg/dL (2.9-7.7)
[2022-01-20 21:19] LABS: Phosphorus 3.9 mg/dL (2.4-5.1)
[2022-01-20 22:58] LABS: Uric Acid 24 Hour,Urine 0.51 g/24Hr (0.25-0.75)
[2022-01-20 22:59] LABS: Creatinine 24 Hour,Urine 1.66 g/24Hr (0.80-1.80)
[2022-01-20 23:01] LABS: Potassium 24 Hour,Urine 101.2 mmol/24Hr (25.0-120.0)
== END | disposition home or self-care (01) ==
LOC: LABWHC1 09:18
PROVIDERS: ATTEND Urology
DX: N20.2 Calculus of kidney with calculus of ureter (principal)
CPT/HCPCS: 36415; 81003; 81050; 82310; 82340; 82374; 82435; 82565; 82570; 83970; 84100; 84133; 84300; 84550; 84560

== ENCOUNTER → 2022-05-15 | Outpatient (CLI) | payer MEDICARE ==
--- NOTE | 2022-05-15 12:36 | CT ---
EXAMINATION TYPE: CT abdomen pelvis w con CT DLP: 311.6 mGycm, Automated exposure control for dose reduction was used. DATE OF EXAM: 05/15/2022 12:24 PM COMPARISON: None CLINICAL INDICATION:Female, 66 years old with history of R63.4 abnormal weight loss; abnormal weight loss, diarrhea TECHNIQUE: Standard CT of the abdomen and pelvis following the administration of 70 cc of Isovue 30 0 IV contrast material and oral contrast. Coronal and sagittal reformats were performed. FINDINGS: LOWER CHEST: Posterior dependent subsegmental atelectasis is noted. ABDOMEN LIVER: Subcentimeter hypodense lesion within the left hepatic lobe which is too small character as diego pinedo represents a cyst. GALLBLADDER AND BILE DUCTS: Unremarkable. PANCREAS: Unremarkable. SPLEEN: Unremarkable. ADRENAL GLANDS: Unremarkable. KIDNEYS AND URETERS: No evidence of hydronephrosis. Nonobstructive 3 mm left renal calculus. The kidn eys enhance symmetrically. Bilateral subcentimeter hypodense foci which likely represent cysts. PELVIS BLADDER: Unremarkable REPRODUCTIVE: The uterus is surgically absent. No concerning adnexal mass. ABDOMEN & PELVIS STOMACH AND BOWEL: Stomach and duodenum are unremarkable. No focal wall thickening. Enteric contrast reaches the descending colon. No evidence of bowel obstruction. PERITONEUM: No evidence of pneumoperitoneum or free fluid. VASCULATURE: Moderate atherosclerotic calcifications are present throughout the abdominal aorta and i ts branches. No evidence of aortic aneurysm. MUSCULOSKELETAL: No acute osseous abnormalities. Postsurgical changes of the bilateral femurs with bi lateral intramedullary rods and fixation screws. Mild levo curvature of the lumbar spine. Mild multil evel degenerative disc disease. LYMPH NODES: No gross evidence for lymphadenopathy. SOFT TISSUE/ABDOMINAL WALL: Unremarkable IMPRESSION: 1. No acute abdominal/pelvic process. 2. No CT evidence for patient's weight loss/diarrhea.
[2022-05-15 20:13] LABS: African American GFR (CKD) 87.8 (60.0-200.0); Albumin 4.4 g/dL (3.8-4.9); Anion Gap 14.5 mmol/L (10.00-18.00); BUN/Creat Ratio 30.38 Ratio (12.00-20.00); Blood Urea Nitrogen 24.3 mg/dL (9.0-27.0); Calcium 11.4 mg/dL (8.7-10.3); Carbon Dioxide 23.5 mmol/L (20.0-27.5); Non-African American GFR(CKD) 75.8 (60.0-200.0); Phosphorus 3.7 mg/dL (2.4-5.1); Potassium 4.4 mmol/L (3.5-5.5)
[2022-05-15 20:28] LABS: Gliadin AB IgA, Deaminated NEGATIVE (NEGATIVE); Gliadin AB IgA, Unit 0.3 U/mL; Gliadin AB IgG, Deaminated NEGATIVE (NEGATIVE); Gliadin AB IgG, Unit <0.4 U/mL
== END | disposition home or self-care (01) ==
LOC: RADCTMAIN 10:33
PROVIDERS: ATTEND Family Medicine
DX: R63.4 Abnormal weight loss (principal); R10.30 Lower abdominal pain, unspecified; R19.7 Diarrhea, unspecified
CPT/HCPCS: 80069; 82565; 84520; 83516 ×4; 74177; 36415; Q9967

== ENCOUNTER → 2022-08-24 | Outpatient (CLI) | payer MEDICARE ==
--- NOTE | 2022-08-27 15:36 | MM ---
Reason for Exam: Screening (asymptomatic). Last screening mammogram was performed 12 month(s) ago. Patient History: Menarche at age 12. First Full-Term at age 20. Left ovary removed at age 27. Right ovary removed at age 27. Hysterectomy at age 27. Postmenopausal. Sister had breast cancer, age 50. Risk Values: Christy 5 year model risk: 3.0%. NCI Lifetime model risk: 9.5%. Prior Study Comparison: 04/06/2019 Left Diagnostic Mammogram, [facility]. 04/27/2020 Bilateral Diagnostic Mammogram, [facility]. 08/23/2021 Bilateral Screening Mammogram, [facility]. Tissue Density: The breast tissue is heterogeneously dense. This may lower the sensitivity of mammography. Findings: Analyzed By CAD. There is no suspicious group of microcalcifications or new suspicious mass in either breast. Overall Assessment: Benign, BI-RAD 2 Management: Screening Mammogram of both breasts in 1 year. A clinical breast exam by your physician is recommended on an annual basis and results should be correlated with mammographic findings. Electronically signed and approved by: Diallo Mesa M.D. Radiologis
== END | disposition home or self-care (01) ==
LOC: RADMAMWWP 11:07
PROVIDERS: ATTEND Obstetrics & Gynecology
DX: Z12.31 Encounter for screening mammogram for malignant neoplasm of breast (principal); Z78.0 Asymptomatic menopausal state; Z80.3 Family history of malignant neoplasm of breast
CPT/HCPCS: 77063; 77067

== ENCOUNTER → 2022-11-29 | Outpatient (CLI) | payer MEDICARE ==
--- NOTE | 2022-11-29 18:27 | XR ---
EXAMINATION TYPE: XR wrist complete LT DATE OF EXAM: 11/29/2022 COMPARISON: NONE HISTORY: 58-year-old female [id number], left wrist pain TECHNIQUE: 3 views FINDINGS: Dorsal plate and screw fixation distal radius. There is slight positive ulnar variance and some sclerosis and cystic change along the proximal ulnar aspect of the lunate. Chronic ununited frac ture fragment of the ulnar styloid process. No acute fracture, subluxation, dislocation. IMPRESSION: 1. Previous plate and screw fixation distal radius. 2. 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 3. 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
== END | disposition home or self-care (01) ==
LOC: RADXRYALE 11:10
PROVIDERS: ATTEND Physician Assistant
DX: S52.612A Displaced fracture of left ulna styloid process, initial encounter for closed fracture (principal); X58.XXXA Exposure to other specified factors, initial encounter

== ENCOUNTER → 2023-01-29 | Outpatient (CLI) | payer MEDICARE ==
--- NOTE | 2023-01-29 09:57 | CT ---
EXAMINATION TYPE: CT abdomen pelvis wo con DATE OF EXAM: 01/29/2023 COMPARISON: 05/15/2022 HISTORY: flank pain CT DLP: 484 mGycm Examination of the solid and hollow viscera is limited given the lack of contrast. FINDINGS: LUNG BASES: No evidence for nodule. No evidence for infiltrate. LIVER/GB: The gallbladder is unremarkable. No space-occupying hepatic lesion. PANCREAS: No pancreatic mass identified. No inflammatory process seen. SPLEEN: No evidence for splenomegaly. No intrasplenic lesions seen. ADRENALS: No adrenal nodules identified. No evidence for thickening. KIDNEYS: No evidence for renal mass. 3.4 mm nonobstructing calculus upper pole left kidney. No eviden ce for hydronephrosis. No obstructing calculus seen. Small exophytic 1 cm cyst lower pole left kidney . BOWEL: Appendix has a normal appearance. No evidence of bowel obstruction. No inflammatory process. Lymph nodes: No evidence for adenopathy greater than 1 cm. Abdominal aorta: Atheromatous changes seen. No evidence for aneurysm. Genital organs: No significant abnormality. Other: Severe degenerative change L4-5 and L5-S1 with vacuum disc seen. Postoperative changes of the bilateral hips noted. IMPRESSION: 1. Nonobstructing left-sided nephrolithiasis.
== END | disposition home or self-care (01) ==
LOC: RADCTMAIN 09:29
PROVIDERS: ATTEND Urology
DX: N20.0 Calculus of kidney (principal)
CPT/HCPCS: 74176

== ENCOUNTER → 2023-04-08 | Outpatient (CLI) | payer MEDICARE ==
--- NOTE | 2023-04-08 15:34 | CT ---
EXAMINATION TYPE: CT brain wo con DATE OF EXAM: 04/08/2023 COMPARISON: 01/25/2021 HISTORY: headaches, dizziness CT DLP: [address] of the brain was performed. The ventricles, basal cisterns and sulci overlying the cerebral convexities demonstrate mild enlargem ent. There is no evidence for intracranial hemorrhage or sulcal effacement. There is decreased attenuation about the periventricular white matter and deep white matter of both c erebral hemispheres, compatible with chronic small vessel ischemia. Differential diagnosis does inclu de demyelination. No mass effects are seen.No midline shift. Osseous calvarium is intact. If symptoms persist consider MRI. IMPRESSION: 1. Age related atrophic and chronic small vessel ischemic change without acute intracranial process s een at this time.
== END | disposition home or self-care (01) ==
LOC: RADCTMAIN 14:45
PROVIDERS: ATTEND Family Medicine
DX: I67.82 Cerebral ischemia (principal); G31.9 Degenerative disease of nervous system, unspecified; E78.5 Hyperlipidemia, unspecified; I10 Essential (primary) hypertension; R51.9 Headache, unspecified; R55 Syncope and collapse
CPT/HCPCS: 70450

== ENCOUNTER 2023-07-14 16:08 | Inpatient (IN) | payer MEDICARE ==
--- NOTE | 2023-07-14 16:47 | ED ---
General Adult HPI - General Chief complaint: Anxiety Stated complaint: SOB/Chest Pains Time Seen by Provider: 07/14/23 16:21 Source: patient Mode of arrival: wheelchair Limitations: no limitations - History of Present Illness Initial comments: Dictation was produced using [employer] dictation software. please excuse any grammatical, word or spelling errors. Chief Complaint: 67-year-old female presents to the emergency department for paresthesias of the right arm, right lower face. History of Present Illness: Patient 67-year-old female she checks her blood pressure daily. She has been checking it almost daily for the last several days. She was recently started on new blood pressure medication. Checked her blood pressure today and she called her senior project manager. She spoke with Dr. Lo who told her to come to the emergency department after she explained that she has been having some paresthetic symptoms affecting her right neck, right lower face and right upper extremity. Patient states that for the last months she has been having intermittent episodes of this. Denies any weakness. She does complain of similar symptoms that affect only her right leg as well. Denies any headache. No shortness of breath. The ROS documented in this emergency department record has been reviewed and confirmed by me. Those systems with pertinent positive or negative responses have been documented in the HPI. All other systems are other negative and/or noncontributory. - Related Data Home Medications Medication Instructions Recorded Confirmed Ibuprofen [Advil] 400 mg PO Q8HR PRN 04/18/18 06/20/20 Multivit with Calcium,Iron,Min 1 tab PO DAILY 04/18/18 06/20/20 [Women's Multivitamin] Calcium Citrate/Vitamin D3 2 tab PO DAILY 06/14/20 06/20/20 [Citracal + D Maximum Caplet] Cholecalciferol [Vitamin D3 (25 25 mcg PO DAILY 06/14/20 06/20/20 Mcg = 1000 Iu)] Acetaminophen [Tylenol Extra 1,000 mg PO Q6H PRN 06/20/20 06/20/20 Strength] Previous Rx's Medication Instructions Recorded Acetaminophen-Codeine 300-30mg 1 tab PO Q4H PRN 7 Days #30 tablet 06/22/20 [Tylenol w/codeine #3] cefUROXime axetiL [Ceftin] 500 mg PO BID 3 Days #6 tab 06/22/20 Allergies Allergy/AdvReac Type Severity Reaction Status Date / Time red dye Allergy Unknown Verified 07/14/23 16:18 amoxicillin [From Augmentin] AdvReac SEVERE Verified 07/14/23 16:18 YEAST INFECTION clavulanic acid AdvReac SEVERE Verified 07/14/23 16:18 [From Augmentin] YEAST INFECTION pumpkin seeds Allergy Swelling Uncoded 06/21/20 08:28 Review of Systems ROS Statement: Those systems with pertinent positive or pertinent negative responses have been documented in the HPI. ROS Other: All systems not noted in ROS Statement are negative. Past Medical History Past Medical History: Hypertension Additional Past Medical History / Comment(s): hx. heart murmur-no tx. FX RT ANKLE 06/14/20. Osteoperosis History of Any Multi-Drug Resistant Organisms: None Reported Past Surgical History: Hysterectomy, Orthopedic Surgery Additional Past Surgical History / Comment(s): ORIF right femur, ORIF left hip fx., ORIF left wrist, COLONOSCOPY Past Anesthesia/Blood Transfusion Reactions: No Reported Reaction Past Psychological History: No Psychological Hx Reported Smoking Status: Current every day smoker - Past Family History Father Family Medical History: Diabetes Mellitus Mother Family Medical History: Diabetes Mellitus, Hypertension General Exam - General Exam Comments Initial Comments: PHYSICAL EXAM: General Impression: Alert and oriented x3, not in acute distress HEENT: Normocephalic atraumatic, extra-ocular movements intact, pupils equal and reactive to light bilaterally, mucous membranes moist. Cardiovascular: Heart regular rate and rhythm Chest: Able to complete full sentences, no retractions, no tachypnea Abdomen: abdomen soft, non-tender, non-distended, no organomegaly Musculoskeletal: Pulses present and equal in all extremities, no peripheral ed ambika Motor: no focal deficits noted Neurological: CN II-XII grossly intact, NIH score of 2 Skin: Intact with no visualized rashes Psych: Normal affect and mood Limitations: no limitations Course Vital Signs 07/14/23 07/14/23 07/14/23 16:16 16:38 16:50 Temperature 97.0 F L Pulse Rate 71 63 Pulse Rate [ 74 Chairman And Chief Executive Officer ] Respiratory 16 17 Rate Blood Pressure 199/80 175/87 O2 Sat by Pulse 99 97 Oximetry 07/14/23 07/14/23 07/14/23 16:55 17:05 17:10 Temperature 98.1 F Pulse Rate 63 Pulse Rate [ Chairman And Chief Executive Officer ] Respiratory 16 Rate Blood Pressure 186/87 157/81 173/80 O2 Sat by Pulse 95 Oximetry 07/14/23 07/14/23 07/14/23 17:15 17:20 17:25 Temperature Pulse Rate Pulse Rate [ Chairman And Chief Executive Officer ] Respiratory Rate Blood Pressure 160/80 177/84 177/84 O2 Sat by Pulse Oximetry 07/14/23 07/14/23 07/14/23 17:43 18:10 18:15 Temperature Pulse Rate 69 Pulse Rate [ Chairman And Chief Executive Officer ] Respiratory 16 Rate Blood Pressure 176/86 157/80 146/74 O2 Sat by Pulse 99 Oximetry 07/14/23 07/14/23 07/14/23 18:20 18:25 18:30 Temperature 98.0 F Pulse Rate 65 Pulse Rate [ Chairman And Chief Executive Officer ] Respiratory 17 Rate Blood Pressure 127/78 145/82 153/80 O2 Sat by Pulse 97 Oximetry - Reevaluation(s) Reevaluation #1: 07/14/23 16:46 Patient seen and evaluated in room #3 immediately upon arrival. Patient does not meet criteria for thrombolytic administration due to sputtering symptoms for the last month. She does not have a last known normal. Furthermore her NIH score is too low where risk outweigh the benefits. EKG Findings - EKG Comments: EKG Findings:: My EKG interpretation: Ventricular rate 64, sinus rhythm,. 173, QRS 96, QTc 423. No WI prolongation, no QTC prolongation, no ST or T-wave saleem ges noted. Overall, this EKG is unremarkable Medical Decision Making - Medical Decision Making Was pt. sent in by a medical professional or institution (Dr. PA, MORNING CAREGIVER, urgent care, hospital, or intermediate...) When possible be specific @ -No Did you speak to anyone other than the patient for history (EMS, parent, family, police, friend...)? What history was obtained from this source @ -No Did you review nursing and triage notes (agree or disagree)? Why? @ -I reviewed and agree with nursing and triage notes Were old charts reviewed (outside hosp., previous admission, EMS record, old EKG, old radiological studies, urgent care reports/EKG's, intermediate records)? Report findings @ -No old charts were reviewed Differential Diagnosis (chest pain, altered mental status, abdominal pain women, abdominal pain men, vaginal bleeding, musculoskeletal, weakness, fever, dyspnea, syncope, headache, dizziness, GI bleed, back pain, seizure, CVA, palpatations, mental health)? @ - Differential CVA: Ischemic stroke, hemorrhagic stroke, brain tumor, atypical migraine, Wernicke's encephalopathy, seizure, multiple sclerosis, meningitis, encephalitis, hypoglycemia, Guillain-Smiley, electrolytes disturbance, myasthenia gravis.... This is not meant to be an all-inclusive list EKG interpreted by me (3pts min.). @ -See above X-rays interpreted by me (1pt min.). @ -None done CT interpreted by me (1pt min.). @ -CT scan the brain and CT angiography of the head and neck shows no acute processes U/S interpreted by me (1pt. min.). @ -None done What testing was considered but not performed or refused? (CT, X-rays, U/S, labs)? Why? @ -None What meds were considered but not given or refused? Why? @ -None Did you discuss the management of the patient with other professionals (professionals i.e. , PA, MORNING CAREGIVER, lab, RT, psych nurse, social worker masters, apartment rental agent, teacher, earth science technical officer, medical case manager)? Give summary @ -Case discussed with hospitalist for admission Was smoking cessation discussed for >3mins.? @ -No Was critical care preformed (if so, how long)? @ -No Were there social determinants of health that impacted care today? How? (Oscar elessness, low income, unemployed, alcoholism, drug addiction, transportation, low edu. Level, literacy, decrease access to med. care, intermediate, rehab)? @ -No Was there de-escalation of care discussed even if they declined (Discuss DNR or withdrawal of care, Hospice)? DNR status @ -No What co-morbidities impacted this encounter? (DM, HTN, Smoking, COPD, CAD, Cancer, CVA, ARF, Chemo, Hep., AIDS, mental health diagnosis, sleep apnea, morbid obesity)? @ -None Was patient admitted / discharged? Hospital course, mention meds given and route, prescriptions, significant lab abnormalities, going to OR and other pertinent info. @ -67-year-old female presents to the emergency department per instruction by senior project manager for ER evaluation. She called her senior project manager for elevated blood pressure however she had associated symptoms of right upper extremity and right lower facial which she describes as numbness. Vital signs are stable. Patient well-appearing her NIH score is low due to reported sensory deficit. Patient not a candidate for thrombolytics or thrombectomy. CT imaging is negative. Labs unremarkable. Patient given aspirin will be admitted with consultation to neurology. Undiagnosed new problem with uncertain prognosis? @ -No Drug Therapy requiring intensive monitoring for toxicity (Heparin, Nitro, Insulin, Cardizem)? @ -No Were any procedures done? @ -No Diagnosis/symptom? Acute, or Chronic, or Acute on Chronic? Uncomplicated (without systemic symptoms) or Complicated (systemic symptoms)? @ -Strokelike symptoms Side effects of treatment? @ -No Exacerbation, Progression, or Severe Exacerbation? @ -No Poses a threat to life or bodily function? How? (Chest pain, [place], [place], pneumonia, PE, COPD, DKA, ARF, appy, cholecystitis, CVA, Diverticulitis, Homicidal, Suicidal, threat to staff... and all critical care pts) @ -yes - Lab Data Result diagrams: 07/14/23 16:46 07/14/23 16:46 Lab Results 07/14/23 07/14/23 07/14/23 Range/Units 16:46 16:46 16:46 WBC 6.0 (3.8-10.6) k/uL RBC 4.07 (3.80-5.40) m/uL Hgb 12.9 (11.4-16.0) gm/dL Hct 39.7 (34.0-46.0) % MCV 97.7 (80.0-100.0) fL MCH 31.6 (25.0-35.0) pg MCHC 32.4 (31.0-37.0) g/dL RDW 13.1 (11.5-15.5) % Plt Count 242 (150-450) k/uL MPV 7.9 Neutrophils % 56 % Lymphocytes % 30 % Monocytes % 7 % Eosinophils % 3 % Basophils % 1 % Neutrophils # 3.4 (1.3-7.7) k/uL Lymphocytes # 1.8 (1.0-4.8) k/uL Monocytes # 0.4 (0-1.0) k/uL Eosinophils # 0.2 (0-0.7) k/uL Basophils # 0.1 (0-0.2) k/uL PT 10.2 (10.0-12.5) sec INR 0.9 (<1.2) APTT 25.3 (22.0-30.0) sec Sodium 136 L (137-145) mmol/L Potassium 4.3 (3.5-5.1) mmol/L Chloride 106 (98-107) mmol/L Carbon Dioxide 26 (22-30) mmol/L Anion Gap 4 mmol/L BUN 15 (7-17) mg/dL Creatinine 0.97 (0.52-1.04) mg/dL Est GFR (CKD-EPI)AfAm 69 (>60 ml/min/1.73 sqM) Est GFR (CKD-EPI)NonAf 60 (>60 ml/min/1.73 sqM) Glucose 92 (74-99) mg/dL Calcium 9.9 (8.4-10.2) mg/dL Disposition Clinical Impression: Stroke-like symptoms Disposition: ADMITTED IP TO THIS [facility] Condition: Fair Referrals: Dmitriy Miller DO [Primary Care Provider] - 1-2 days Decision Time: 19:33
[2023-07-14 16:58] LABS: Basophils # (A) 0.1 k/uL (0-0.2); Basophils % (A) 1 %; Eosinophils # (A) 0.2 k/uL (0-0.7); Eosinophils % (A) 3 %; HCT 39.7 % (34.0-46.0); HGB 12.9 gm/dL (11.4-16.0); Lymphocytes # (A) 1.8 k/uL (1.0-4.8); Lymphocytes % (A) 30 %; MCH 31.6 pg (25.0-35.0); MCHC 32.4 g/dL (31.0-37.0); MCV 97.7 fL (80.0-100.0); Mean Platelet Volume 7.9; Monocytes # (A) 0.4 k/uL (0-1.0); Monocytes % (A) 7 %; Neutrophils # (A) 3.4 k/uL (1.3-7.7); Neutrophils % (A) 56 %; Platelet Count 242 k/uL (150-450); RBC 4.07 m/uL (3.80-5.40); RDW 13.1 % (11.5-15.5)
[2023-07-14 17:07] LABS: African American GFR (CKD) 69 (>60 ml/min/1.73 sqM); Anion Gap 4 mmol/L; Blood Urea Nitrogen 15 mg/dL (7-17); Calcium 9.9 mg/dL (8.4-10.2); Carbon Dioxide 26 mmol/L (22-30); Chloride 106 mmol/L (98-107); Glucose 92 mg/dL (74-99); Non-African American GFR(CKD) 60 (>60 ml/min/1.73 sqM); Potassium 4.3 mmol/L (3.5-5.1); Sodium 136 mmol/L (137-145)
[2023-07-14 17:14] LABS: INR 0.9 (<1.2); Partial Thromboplastin Time 25.3 sec (22.0-30.0); Prothrombin Time 10.2 sec (10.0-12.5)
--- NOTE | 2023-07-14 17:54 | CT ---
EXAMINATION TYPE: CT brain wo con CT DLP: 1093.6 mGycm, Automated exposure control for dose reduction was used. DATE OF EXAM: 07/14/2023 5:46 PM COMPARISON: . CLINICAL INDICATION:Female, 67 years old with history of RUE, right lower facial paresthesias, RUE, r ight lower facial paresthesias. high BP TECHNIQUE: Brain: Axial CT images of the brain were obtained with coronal and sagittal reformats created and rev iewed. Contrast used: None. Oral contrast used: None. FINDINGS: Brain: Extra-axial spaces: No abnormal extra-axial fluid collections. Ventricular system: Within normal limits Cerebral parenchyma: No acute intraparenchymal hemorrhage or mass effect. The amado-white junction is well differentiated. Scattered hypoattenuating areas are seen within the white matter. Cerebellum: Unremarkable. Mass effect: No evidence of midline shift. Intracranial vasculature: Atherosclerotic calcifications of the intracranial vessels. Soft tissues: Normal. Calvarium/osseous structures: No depressed skull fracture. Paranasal sinuses and mastoid air cells: Mild scattered paranasal sinus disease. Visualized orbits: Orbital contents are intact. IMPRESSION: 1. Stable exam without evidence of acute process. 2. Nonspecific white matter changes, likely secondary to chronic small vessel ischemic disease.
--- NOTE | 2023-07-14 18:29 | CT ---
EXAMINATION TYPE: CT angio head neck CT DLP: 318.8 mGycm, Automated exposure control for dose reduction was used. DATE OF EXAM: 07/14/2023 6:04 PM COMPARISON: CT head same day. CLINICAL INDICATION:Female, 67 years old with history of neurologic deficit; PHH, RUE, right lower fa cial paresthesias. high BP TECHNIQUE: Axially acquired helical CT angiogram of the head and neck was obtained with contrast. Axi al images are supplemented with 3D reconstructions and MIP images which were post-processed at an in dependent workstation. NASCET criteria used. Contrast used:65ml mL of Isovue 370 with IV Contrast, Oral contrast used: None. FINDINGS: CTA HEAD: No evidence of acute intracranial hemorrhage, mass effect, or midline shift. The ventricles, sulci, a nd cisterns are unremarkable. The visualized portions of the internal carotid arteries, middle cerebral arteries, anterior cerebral arteries, and posterior cerebral arteries are patent. The basilar and vertebral arteries are patent. CTA NECK: Right Carotid System: The common carotid and external carotid arteries are patent. There is less than 25% stenosis at the c arotid bifurcation secondary to calcified/noncalcified plaque. The rest of the internal carotid arter y is patent. Left Carotid System: The common carotid and external carotid arteries are patent. There is less than 25% stenosis at the c arotid bifurcation secondary to calcified/noncalcified plaque. The rest of the internal carotid arter y is patent. Vertebral arteries are patent without evidence hemodynamically significant stenosis. There is a three-vessel aortic arch. The origins of the great vessels are patent. No evidence of hemo dynamically significant stenosis. Upper thorax: Left upper lung ground glass opacity measuring 13 mm, right upper lung nodule measuring 5 mm. Compression deformity to the T5 vertebrae with biconcave deformity and near complete height lo ss centrally. IMPRESSION: 1. No evidence of dissection of the cervical internal carotid arteries or vertebral arteries or any e vidence of significant stenosis at the carotid bifurcations. 2. No evidence of intracranial high-grade stenosis or intracranial aneurysm. 3. Left upper lobe groundglass opacity in right upper lobe 5 mm pulmonary nodule. Short-term follow-u p recommended to ensure resolution. The left upper lung nodular groundglass opacity may represent inf ectious/inflammatory process. Consider 3 month follow-up for the left upper lobe nodule. The right up per lobe nodule should be surveillance at that time and consideration at that time for yearly low-dos e lung cancer screening should be made. 4. Age indeterminant T5 vertebral body compression deformity with complete height loss. Correlate wit h back pain.
[2023-07-14] MEDS: ASPIRIN 81 MG PO STA (19:15)
[2023-07-14] MEDS ORDERED: NALOXONE 0.4 MG/ML 1 ML VIAL IV PRN (19:30)
[2023-07-14] MEDS: SODIUM CHLORIDE 0.9% 1,000 ML IV SCH (19:41)
[2023-07-14 23:41] VITALS: RESP 16
--- NOTE | 2023-07-15 05:24 | P.HPIM ---
History of Present Illness H&P Date: 07/14/23 Chief Complaint: Right lower facial numbness and right upper extremity numbness 67-year-old female with hypertension Patient coming in reporting 1 week history of occasional symptoms of right facial numbness and right upper extremity numbness. She used the words that she feels her blood pressure is abnormal and by that she meant sometimes she gets dizzy and when she checks her blood pressure she will find it high she was recently started on new blood pressure medication valsartan to help control her blood pressure better. She associated the symptoms of right lower facial numbness and right upper extremity numbness with mealswhen she checks her blood pressure usually she finds it elevated. Patient is very vague in her symptoms but otherwise she denies any changes in vision or hearing denies any headache denies any other focal neurodeficits denies any falls or head injury denies any fevers chills nausea vomiting denies any chest pain trouble breathing coughing denies any abdominal pain changes in urinary or bowel habits. Denies any recent travel or history of blood clots. Denies any coronary artery disease or congestive heart failure denies any history of arrhythmia Today she called her shag truck driver who recommended that she goes to the hospital for evaluation due to concerns of stroke Patient denies tobacco smoking illicit drugs or heavy alcohol At time of my evaluation patient was completely asymptomatic review of systems Pertinent positives as noted in HPI. All other systems were reviewed and are negative on exam Constitutional: No acute distress, conversant, pleasant Eyes: Anicteric sclerae, moist conjunctiva, Pupils equal round reactive to light ENMT: NC/AT Oropharynx clear, no erythema, or exudates Neck: Supple, no masses, or JVD No carotid bruits No thyromegaly Lungs: Clear to auscultation Clear to percussion Normal respiratory effort, no accessory muscle use Cardiovascular: Heart regular in rate and rhythm, No murmurs, gallops, or rubs No peripheral edema Abdominal: Soft Nontender, no guarding, rebound or rigidity Abdomen moving with respiration Normoactive bowel sounds No hepatomegaly, No splenomegaly No palpable mass Extremities: No digital cyanosis No clubbing Pedal pulses intact and symmetrical Radial pulses intact and symmetrical No calf tenderness Psychiatric: Alert and oriented to person, place and time Appropriate affect fair judgement Neuro Muscles Strength 5/5 in all 4 extremities Sensation to light touch grossly present throughout Cranial nerves II-XII grossly intact finger-nose exam and heel griffiths e xam unremarkable bilaterally with no dysmetria Lymphatics: no palpable cervical or supraclavicular lymph nodes Past Medical History Past Medical History: Hypertension Additional Past Medical History / Comment(s): hx. heart murmur-no tx. FX RT ANKLE 06/14/20. Osteoperosis History of Any Multi-Drug Resistant Organisms: None Reported Past Surgical History: Hysterectomy, Orthopedic Surgery Additional Past Surgical History / Comment(s): ORIF right femur, ORIF left hip fx., ORIF left wrist, COLONOSCOPY Past Anesthesia/Blood Transfusion Reactions: No Reported Reaction Past Psychological History: No Psychological Hx Reported Smoking Status: Current every day smoker Past Alcohol Use History: None Reported Past Drug Use History: None Reported - Past Family History Father Family Medical History: Diabetes Mellitus Mother Family Medical History: Diabetes Mellitus, Hypertension Medications and Allergies Home Medications Medication Instructions Recorded Confirmed Type Cholecalciferol [Vitamin D3 (25 25 mcg PO DAILY 06/14/20 07/14/23 History Mcg = 1000 Iu)] Alendronate Sodium [Fosamax] 70 mg PO MO 07/14/23 07/14/23 History Famotidine 20 mg PO BID 07/14/23 07/14/23 History Metoprolol Tartrate [Lopressor] 50 mg PO BID 07/14/23 07/14/23 History Prednisolone Acetate/Pf 1 drop LEFT EYE Q2D 07/14/23 07/14/23 History [Prednisolone Acet 1% Eye Drop] Rosuvastatin Calcium [Crestor] 40 mg PO HS 07/14/23 07/14/23 History Valsartan 160 mg PO BID 07/14/23 07/14/23 History Allergies Allergy/AdvReac Type Severity Reaction Status Date / Time red dye Allergy Unknown Verified 07/14/23 16:18 amoxicillin [From Augmentin] AdvReac SEVERE Verified 07/14/23 16:18 YEAST INFECTION clavulanic acid AdvReac SEVERE Verified 07/14/23 16:18 [From Augmentin] YEAST INFECTION pumpkin seeds Allergy Swelling Uncoded 06/21/20 08:28 Physical Exam Vitals: Vital Signs Temp Pulse Pulse Resp BP BP Pulse Ox 07/15/23 04:00 98.1 F 59 L 16 126/73 98 07/15/23 02:00 60 16 07/14/23 23:45 97.8 F 60 16 146/71 97 07/14/23 23:10 98.1 F 70 16 139/74 97 07/14/23 21:37 78 18 158/82 97 07/14/23 18:30 98.0 F 65 17 153/80 97 07/14/23 18:25 145/82 07/14/23 18:20 127/78 07/14/23 18:15 146/74 07/14/23 18:10 157/80 07/14/23 17:43 69 16 176/86 99 07/14/23 17:25 177/84 07/14/23 17:20 177/84 07/14/23 17:15 160/80 07/14/23 17:10 173/80 07/14/23 17:05 157/81 07/14/23 16:55 98.1 F 63 16 186/87 95 07/14/23 16:50 63 17 175/87 97 07/14/23 16:38 74 07/14/23 16:16 97.0 F L 71 16 199/80 99 Intake and Output 07/14/23 07/14/23 07/15/23 14:59 22:59 06:59 Other: Voiding Method Toilet # Voids 1 1 Weight 49.895 kg 49.895 kg Results CBC & Chem 7: 07/14/23 16:46 07/14/23 16:46 Labs: Abnormal Lab Results - Last 24 Hours (Table) 07/14/23 Range/Units 16:46 Sodium 136 L (137-145) mmol/L Thrombosis Risk Factor Assmnt - Choose All That Apply Any of the Below Risk Factors Present?: No Other Risk Factors: Yes Each Risk Factor Represents 2 Points: Age 61-74 years Other congenital or acquired thrombophilia - If yes, enter type in comment: No Thrombosis Risk Factor Assessment Total Risk Factor Score: 2 Thrombosis Risk Factor Assessment Level: Low Risk Assessment and Plan Assessment: 67-year-old female with hypertension coming in for 1 week history of right facial numbness and right upper extremity numbness and tingling I discussed case with ED doctor and accepted the admission for right facial and upper extremity numbness for neurologic evaluation with anticipated length of stay less than 2 midnights Intermittent symptoms of right lower facial numbness and right upper extremity numbness Brain CT showed's no evidence of acute intracranial pathology CT angio of the head and neck showed no evidence of dissection of cervical internal carotid arteries or vertebral arteries no significant stenosis of the carotid bifurcation, no high-grade stenosis or intracranial aneurysm EKG normal sinus rhythm no acute ST changes Neurology consultation Blood work overall unremarkable white count 6 hemoglobin 12.9 Sodium 136 potassium 4.3 BUN 15 creatinine 0.97 Continue with aspirin and statin Fall precautions PT evaluation Hypertension Continue with metoprolol and valsartan home medications Incidental finding on CAT scan of left upper lobe groundglass opacity 5 mm in the lung recommendations for 3-month follow-up to ensure resolution Full code DVT prophylaxis heparin subcu 3 times daily
[2023-07-15] MEDS: FAMOTIDINE 20 MG TAB PO SCH (08:14)
[2023-07-15] MEDS: METOPROLOL TARTRATE 50 MG TAB PO SCH (08:14)
[2023-07-15] MEDS: ASPIRIN 81 MG PO SCH (08:14)
[2023-07-15] MEDS: ENOXAPARIN 40 MG/0.4 ML SYRINGE SQ SCH (08:14)
[2023-07-15] MEDS: VALSARTAN 160 MG TAB PO SCH (10:09)
--- NOTE | 2023-07-15 11:41 | P.PN ---
Subjective Progress Note Date: 07/15/23 Hospital course: Patient is a very pleasant 67-year-old female with a past medical history of hypertension, hyperlipidemia and nicotine dependence. She presented to the emergency department on 07/14/2023 with a chief complaint of right facial and right upper extremity numbness. Upon arrival to the hospital, patient underwent full evaluation. She was found to be in hypertensive urgency with blood pressure 199/80, heart rate 71, respiratory rate 16, temp 97.0 degrees tympanic, and SpO2 of 99% on room air. EKG was completed showing normal sinus rhythm at 64 bpm with prominent Q waves in inferior leads III and aVF. CT brain completed negative for acute intracranial process showing stable nonspecific white matter changes likely secondary to chronic small vessel ischemic disease. CTA head and neck completed showing no evidence of dissection of the cervical internal carotid arteries or vertebral arteries, no evidence of stenosis of the carotid bifurcations, no evidence of intracranial high-grade stenosis or intracranial aneurysm, and revealing a left upper lobe groundglass opacity and a right upper lobe 5 mm nodule with left upper lobe lung nodular groundglass opacity possibly representing infectious/inflammatory process recommending 3-month follow-up of right and left pulmonary nodules. CT also revealing an age-indeterminate T5 vertebral body compression deformity. Labs were completed and reviewed. CBC, coagulation profile, and BMP were unremarkable. Blood glucose was 92. Physical exam: Patient seen and fully evaluated at bedside this morning she was talking on the phone with her . She currently reports resolution of right-sided facial and right upper extremity numbness. Reports the last time experiencing was when she was down in the emergency department and has not had any further episodes since arrival to room 378. Patient denies having any headache, lightheadedness, dizziness, chest pain, palpitations, or shortness of breath at this time. Vital signs reviewed and stable. General: Nontoxic, no distress and appears stated age. Derm: Skin warm and dry, normal coloration for ethnicity. Head: Atraumatic, normocephalic and symmetric. Eyes: EOMs intact, no lid lag, and anicteric sclera Mouth: no lip lesions, mucus membranes moist Cardiovascular: regular rate and rhythm with normal S1S2, no murmur, positive posterior tibial pulses bilaterally, and cap refill < 2 seconds. Lungs: Respirations even, regular, and unlabored on room air. Lungs CTA bilaterally, no rhonchi, no rales, no wheezing, and no accessory muscle usage. Abdominal: soft, nontender to palpation, no guarding, no appreciable organomegaly Ext: ROM intact. No gross muscle atrophy, no edema, no contractures Neuro: Speech clear, face symmetrical and CN II-XII grossly intact with no noted focal neuro deficits Psych: Alert and oriented to person, place, time, and situation. Appropriate and pleasant affect. Assessment and Plan of Care: Intermittent symptoms of right facial and right upper extremity numbness Hypertension, poorly controlled Hyperlipidemia -CT brain negative for acute intracranial process. -CTA head and neck negative for acute intracranial process showing no evidence of dissection of cervical internal carotid arteries or vertebral arteries and no significant stenosis of the carotid bifurcation. -EKG showing normal sinus rhythm at 64 bpm with prominent Q waves in inferior leads III and aVF. -Neurology consulted, discussed plan of care with neurologist he is recommending MRI brain with and without contrast to be completed. -Continue neurochecks every 4 hours -Continue telemetry monitoring -Fall precautions -PT/OT consult. -Continue aspirin 81 mg daily, atorvastatin 80 mg nightly, metoprolol 50 mg twice daily, and valsartan 160 mg twice daily. -Echocardiogram to be completed Incidental finding, pulmonary nodules left upper lung and right upper lobe Possibly infectious/inflammatory process, recommend 3-month follow-up to monitor for resolution Incidental finding, T5 vertebral body compression fracture deformity If develops complaints of back pain, recommend outpatient follow-up with or thospine surgery team. Data and imaging reviewed: No new imaging for review at this time reviewed CT brain, CTA head and neck, and EKG. Findings as stated above. Vital signs reviewed. Blood pressure 152/75, heart rate 74, respiratory rate 16, temp 98.2 F, and SpO2 of 95% on room air. CODE STATUS: Full code DVT prophylaxis: Lovenox Anticipated discharge date: Clinical course to determine Anticipated discharge place: Clinical course to determine Patient was seen independently by Nurse Pracitioner. This document was prepared using [employer] dictation software. Please allow for errors in electroplating worker, while rare they do occur. I reviewed the documentation as provided by the LESA above, who is the original author of this note. I agree with the documented assessment and plan, with the following changes: none Objective - Vital Signs Vital signs: Vital Signs Temp 98.1 F 07/15/23 04:00 Pulse 59 L 07/15/23 04:00 Resp 16 07/15/23 04:00 BP 126/73 07/15/23 04:00 Pulse Ox 98 07/15/23 04:00 FiO2 Intake & Output 07/14/23 07/15/23 07/15/23 18:59 06:59 18:59 Weight 49.895 kg 49.895 kg Other: Voiding Method Toilet # Voids 1 - Labs CBC & Chem 7: 07/14/23 16:46 07/14/23 16:46 Labs: Abnormal Lab Results - Last 24 Hours (Table) 07/14/23 Range/Units 16:46 Sodium 136 L (137-145) mmol/L
--- NOTE | 2023-07-15 13:45 | P.CNNES ---
History of Present Illness Consult date: 07/15/23 Requesting physician: Herson Bates Reason for Consult: stroke symptoms History of Present Illness: This is a 67-year-old woman who presented emergency department because of the numbness over the face and the right side upper and lower. She is accompanied with her was at bedside. According to patient yesterday, in the afternoon she was having numbness involving the the cheek and jaw right neck and right upper and lower extremity. The episode last for couple hours. She denies any weakness, any visual disturbance, any difficulty getting her words out. She denies any history of stroke. Denies any history of seizure. She stated that she's having difficulty with truncal blood pressure in which it's labile sometimes its normal and sometimes it's up. She follows up with senior technical specialist and there unsure why her blood pressure are fluctuating according to the patient and her . She stated that she had a multiple passing out episode the last one was about 3 weeks ago. She stated that about 10 years ago she passed out. She was walking with her and was doing well and had no issues wal k-in out from the restaurant and all of a sudden she passed out. She according to her denies any loss of consciousness. No jerking of any extremities. During the episode her was with her and he denied any jerk in any extremity and he felt was brief. She feels that less than 1 minute and happens only for a few seconds without any loss of consciousness. No post ictal confusion. No urinary or bowel and cons. No tongue bite. She also had an prior episodes of this was about a 3 month ago and then a year ago. She denies any symptoms other than possibly dizziness and lightheadedness. She is a former tobacco user. She feels back to baseline. She does have underlying anxiety. She is not on any antiplatelets. Note because of her falls as she had fractures of the right lower extremities and also had pain in the left lower extremity. She had to have rods in the right proximal lower extremity. She had mild low back pain. Denies any radiation of low back pain. Denies any bladder or urinary issues. Some of the workup during his hospital visit consisted of: CBC with differential is unremarkable Chemistry panel is the sodium is 136 otherwise Chemstrip panel is unremarkable. Serum glucose is 92. CT of the head is reported as stable exam without evidence of acute process. Nonspecific white matter changes likely secondary due to chronic small vessel ischemic disease. I personally reviewed the CT and agree with report CT angiography of the head and neck was reported as no evidence of dissection of cervical internal carotid artery vertebral artery or any evidence of significant stenosis in the carotid bifurcation. No evidence of intracranial high-grade stenosis or intracranial aneurysm. Left upper lobe groundglass opacity in the right upper lobe 5 mm pulmonary nodule. Short-term follow-up recommended to ensure resolution. The left upper long nodular groundglass opacity may represent infection/inflammatory process. Consider three-month follow-up in the left upper lobe nodule. The right upper lobe nodule should be surveillance at the time and consideration at that time for yearly low-dose lung cancer screening should be made. Age indeterminate T5 vertebral compression deformity with complete height loss. Correlate with back pain. Review of Systems The positive and negative as per HPI. Past Medical History Past Medical History: Hypertension Additional Past Medical History / Comment(s): hx. heart murmur-no tx. FX RT ANKLE 06/14/20. Osteoperosis History of Any Multi-Drug Resistant Organisms: None Reported Past Surgical History: Hysterectomy, Orthopedic Surgery Additional Past Surgical History / Comment(s): ORIF right femur, ORIF left hip fx., ORIF left wrist, COLONOSCOPY Past Anesthesia/Blood Transfusion Reactions: No Reported Reaction Past Psychological History: No Psychological Hx Reported Smoking Status: Current every day smoker Past Alcohol Use History: None Reported Past Drug Use History: None Reported - Past Family History Father Family Medical History: Diabetes Mellitus Mother Family Medical History: Diabetes Mellitus, Hypertension Medications and Allergies Home Medications Medication Instructions Recorded Confirmed Type Cholecalciferol [Vitamin D3 (25 25 mcg PO DAILY 06/14/20 07/14/23 History Mcg = 1000 Iu)] Alendronate Sodium [Fosamax] 70 mg PO MO 07/14/23 07/14/23 History Famotidine 20 mg PO BID 07/14/23 07/14/23 History Metoprolol Tartrate [Lopressor] 50 mg PO BID 07/14/23 07/14/23 History Prednisolone Acetate/Pf 1 drop LEFT EYE Q2D 07/14/23 07/14/23 History [Prednisolone Acet 1% Eye Drop] Rosuvastatin Calcium [Crestor] 40 mg PO HS 07/14/23 07/14/23 History Valsartan 160 mg PO BID 07/14/23 07/14/23 History Allergies Allergy/AdvReac Type Severity Reaction Status Date / Time red dye Allergy Unknown Verified 07/14/23 16:18 amoxicillin [From Augmentin] AdvReac SEVERE Verified 07/14/23 16:18 YEAST INFECTION clavulanic acid AdvReac SEVERE Verified 07/14/23 16:18 [From Augmentin] YEAST INFECTION pumpkin seeds Allergy Swelling Uncoded 06/21/20 08:28 Physical Examination - Vital Signs Vital Signs: Vital Signs Temp Pulse Pulse Resp BP BP Pulse Ox 07/15/23 08:18 74 16 07/15/23 08:08 98.2 F 74 16 152/75 95 07/15/23 04:00 98.1 F 59 L 16 126/73 98 07/15/23 02:00 60 16 07/14/23 23:45 97.8 F 60 16 146/71 97 07/14/23 23:10 98.1 F 70 16 139/74 97 07/14/23 21:37 78 18 158/82 97 07/14/23 18:30 98.0 F 65 17 153/80 97 07/14/23 18:25 145/82 07/14/23 18:20 127/78 07/14/23 18:15 146/74 07/14/23 18:10 157/80 07/14/23 17:43 69 16 176/86 99 07/14/23 17:25 177/84 07/14/23 17:20 177/84 07/14/23 17:15 160/80 07/14/23 17:10 173/80 07/14/23 17:05 157/81 07/14/23 16:55 98.1 F 63 16 186/87 95 07/14/23 16:50 63 17 175/87 97 07/14/23 16:38 74 07/14/23 16:16 97.0 F L 71 16 199/80 99 Intake and Output 07/14/23 07/15/23 07/15/23 22:59 06:59 14:59 Intake Total 358 Balance 358 Intake: Oral 358 Other: Voiding Method Toilet Toilet # Voids 1 1 Weight 49.895 kg 49.895 kg GENERAL: The patient is lying in bed and is not in acute distress. NEUROLOGICAL: Higher mental function: The patient is awake, alert, oriented to self, place and time. Patient is following commands. No aphasia and no neglect. Cranial nerves: The pupils are round, equal and reactive to light and accommodation. Visual frey are full to confrontation throughout. Extraocular movement is intact no nystagmus is noted. Facial sensation is normal to touch throughout. The facial strength is normal throughout. Hearing is mildly decreased bilaterally to hand rub. Tongue is midline and moved [id number] without any difficulty. No dysarthria is noted. Shoulder shrug is normal bilaterally. Motor: The strength is 5 over 5 throughout. Normal tone and bulk. Cerebellum: Normal finger to nose heel to chin bilaterally. Sensation: Sensation is normal to touch throughout. Reflexes (right/left): 2+ throughout except ankles are 1+ Plantars are mute bilaterally. Results - Laboratory Findings CBC and BMP: 07/14/23 16:46 07/14/23 16:46 Abnormal Lab Findings: Abnormal Labs 07/14/23 16:46 Sodium 136 L Assessment and Plan Assessment: This is a 67-year-old woman who presented emergency department because of the numbness over the right face involving the middle lower face as well as right upper and lower extremity with neck that started yesterday in the afternoon and lasted for a couple hours and resolved. She denies any history of stroke in the past or seizure. She has multiple syncopal episode of unknown etiology and she states they're brief lasting seconds without any post ictal confusion without any urinary or bowel incontinence. Acute transient numbness involving the face upper and lower extremity as well as the right side of the neck: Rule out transient ischemic attack. Also rule out brain metastases especially with this lung nodules. Recurrent syncopal episode of unknown etiology Recurrent falls due to her syncopal episode. Labile hypertension X tobacco use Plan: The patient was started on aspirin 81 mg daily by the primary team as well as Lipitor 80 mg daily at bedtime. I ordered MRI of the brain with and without to rule out any ischemia or any brain enhancements to rule out any mass especially with a history of pulmonary nodule I ordered a routine EEG because of repeated syncopal episodes rule out any seizures 2-D echo was ordered and is pending I ordered lipid panel and orthostatic vitals Continue neuro checks Cardiac monitoring PT is consulted. I consulted OT as well. For the rest of the medical management to primary team For DVT prophylaxis: On Lovenox. Patient has labile hypertension defer the management to the primary and guarded seem The plan discussed with the patient and her was at bedside Time with Patient: Greater than 30
[2023-07-15] MEDS: levETIRAcetam 500 MG TAB PO SCH (15:13)
[2023-07-15 19:48] LABS: LDL Cholesterol,Calculated 63.3 mg/dL (0.0-131.0)
[2023-07-15] MEDS: ATORVASTATIN 80 MG TAB PO SCH (21:16)
--- NOTE | 2023-07-16 03:11 | EEG ---
ELECTROENCEPHALOGRAM REPORT CLINICAL HISTORY: This is a 67-year-old woman with recurrent syncopal episodes, who presents because of numbness over the right face as well as involving right upper and lower extremity. The video EEG is obtained to evaluate for seizure epileptiform activity. RELEVANT MEDICATIONS: The patient is not on any antiepileptic drugs. EEG TYPE: A routine 21-channel EEG is with video using the 10/20 electrode placement system. DESCRIPTION: Wakefulness is only obtained. During awake state, a posterior driving rhythm consists of [id number] voltage of 8.5 hertz activity that is well modulated, well sustained. There is no physiological stage 2 sleep architecture. There is delta slowing over the left temporal region. INTERICTAL AND ICTAL: There are spike/sharp slow waves over the left temporal lesion. Also there appears to be 2-1/2 delta activity over the left temporal central also involving right temporal focal region, is seen somewhat rhythmic at times lasting between 1-4 seconds. There is no seizure noted during this study. ACTIVATION PROCEDURE: Photic stimulation does not evoke a posterior driving response. There are no abnormality during the photic stimulation. Hyperventilation is not performed. CLINICAL INTERPRETATION: This is an abnormal routine EEG. The epileptiform discharges over the left temporal region can increase risk for focal seizure as well status epilepticus. There is also delta rhythmicity over bilateral temporal, left central bilateral focal region lasting between 1 to 4 seconds, is epileptic in nature. No seizure is noted during the study. Consider prolonged EEG. Clinical correlation is recommended. SHEA / TRE: [id number] / MTDD
--- NOTE | 2023-07-16 08:36 | CA ---
Transthoracic Echo Report Name: Nyasia Obando Age: 67 Gender: F : 1955 Exam Date: 07/15/2023 11:15 Exam Location: [facility] Ht (in): 62 Wt (lb): 110 Ordering Physician: Say Chirinos MD Attending/Referring Phys: [id number], Candis Fire Extinguisher Installer Alicia Prado RDCS Procedure CPT: Indications: neuro symptoms Cardiac Hx: Technical Quality: Contrast 1: Total Dose (mL): Contrast 2: Total Dose (mL): MEASUREMENTS (Male / Female) Normal Values 2D ECHO LV Diastolic Diameter PLAX 4.1 cm 4.2 - 5.9 / 3.9 - 5.3 cm LV Systolic Diameter PLAX 2.4 cm IVS Diastolic Thickness 0.7 cm 0.6 - 1.0 / 0.6 - 0.9 cm LVPW Diastolic Thickness 0.6 cm 0.6 - 1.0 / 0.6 - 0.9 cm LV Relative Wall Thickness 0.3 LVOT Diameter 1.9 cm Aortic Root Diameter 2.0 cm LA Systolic Diameter LX 2.7 cm 3.0 - 4.0 / 2.7 - 3.8 cm DOPPLER AV Peak Velocity 137.9 cm/s AV Peak Gradient 7.6 mmHg AV Mean Velocity 99.3 cm/s AV Mean Gradient 4.2 mmHg AV Velocity Time Integral 33.4 cm LVOT Peak Velocity 94.3 cm/s LVOT Peak Gradient 3.6 mmHg LVOT Velocity Time Integral 22.7 cm LVOT Stroke Volume 65.5 cm??? LVOT Stroke Volume Index 44.2 ml/m??? LVOT Cardiac Index 2663.6 cm???/min???m??? AV Area Cont Eq vti 2.0 cm??? AV Area Cont Eq pk 2.0 cm??? Mitral E Point Velocity 100.4 cm/s Mitral A Point Velocity 95.0 cm/s Mitral E to A Ratio 1.1 MV Deceleration Time 206.7 ms MV E' Velocity 12.4 cm/s Mitral E to MV E' Ratio 8.1 PV Peak Velocity 64.1 cm/s PV Peak Gradient 1.6 mmHg FINDINGS Left Ventricle Left ventricular ejection fraction is estimated at 50-55%. Normal left ventricular wall motion. Mild concentric left ventricular hypertrophy. Right Ventricle Normal right ventricular size and function. Right ventricular systolic pressure within normal limits. Right Atrium Normal right atrial size. Left Atrium Normal left atrial size. Mitral Valve Trace mitral regurgitation. Mild mitral annular calcification. Aortic Valve Aortic valve not well visualized. Tricuspid Valve Trace tricuspid regurgitation. Pulmonic Valve No pulmonic regurgitation. Pericardium No pericardial effusion. Aorta Normal size aortic root. CONCLUSIONS Normal LV function Previewed by: Dr. David Quarles MD (Electronically Signed) Final Date: 16 July 2023 08:35
[2023-07-16] MEDS: FAMOTIDINE 20 MG TAB PO SCH (09:27)
[2023-07-16 10:59] LABS: HCT 39.7 % (34.0-46.0); HGB 12.7 gm/dL (11.4-16.0); MCH 31.7 pg (25.0-35.0); MCHC 31.9 g/dL (31.0-37.0); MCV 99.5 fL (80.0-100.0); Mean Platelet Volume 8.3; Platelet Count 279 k/uL (150-450); RBC 3.99 m/uL (3.80-5.40); RDW 13.5 % (11.5-15.5); WBC 7.6 k/uL (3.8-10.6)
[2023-07-16 11:25] LABS: ALT 28 U/L (4-34); AST 40 U/L (14-36); African American GFR (CKD) 78 (>60 ml/min/1.73 sqM); Albumin 4.3 g/dL (3.5-5.0); Alkaline Phosphatase 59 U/L (38-126); Anion Gap 6 mmol/L; Blood Urea Nitrogen 18 mg/dL (7-17); Calcium 9.9 mg/dL (8.4-10.2); Carbon Dioxide 30 mmol/L (22-30); Chloride 105 mmol/L (98-107); Glucose 97 mg/dL (74-99); Magnesium 1.9 mg/dL (1.6-2.3); Non-African American GFR(CKD) 68 (>60 ml/min/1.73 sqM); Potassium 4.5 mmol/L (3.5-5.1); Sodium 141 mmol/L (137-145); Total Bilirubin 0.6 mg/dL (0.2-1.3); Total Protein 7.4 g/dL (6.3-8.2)
--- NOTE | 2023-07-16 11:38 | MR ---
EXAMINATION TYPE: MR brain wo/w con DATE OF EXAM: 07/16/2023 COMPARISON: 07/14/2023 HISTORY: Rt side numbness, stroke vs Mets CONTRAST: Performed utilizing 5 mL intravenous Gadavist gadolinium contrast. TECHNIQUE: Multiplanar, multiecho imaging on a 3.0 Kristie magnet is performed through the brain. Stud y is performed within 24 hours of arrival to the hospital. The craniovertebral junction is normal. The pituitary is normal. Diffusion-weighted imaging is performed. Some minimal increased signal may be within the periventric ular regions bilaterally. This could correlate with the white matter changes. Patchy to confluent periventricular white matter changes are present. Some of these are perpendicular to the ventricles. This can be compatible with a level not diagnostic for multiple sclerosis. Differ ential diagnosis would include chronic white matter ischemic changes vasculitis or Lyme disease among other etiologies. Ventricles and sulci are somewhat prominent for the patient age. Corpus callosum appears thinned. No abnormal enhancement. IMPRESSION: 1. Moderately extensive periventricular white matter changes, some of which are perpendicular to the ventricles and mild increased signal in this region on diffusion-weighted imaging. There is some thin yusra of the corpus callosum. Findings can be compatible with, although not diagnostic for, multiple s clerosis. Extensive white matter ischemic changes should be considered. 2. Suspicious acute infarct is not otherwise apparent. 3. No suspicious masses identified
[2023-07-16 11:53] VITALS: BP 151/66; PULSE 60; TEMP 97.8
--- NOTE | 2023-07-16 14:43 | P.DS ---
Providers Date of admission: 07/14/23 19:31 Expected date of discharge: 07/16/23 Attending physician: Sya Chirinos MD Consults: 07/14/23 19:30 Consult Physician Routine Consulting Provider: Edda Ramos Consult Reason/Comments: stroke symptoms Do you want consulting provider notified?: Yes Primary care physician: [facility] Course: Discharge Diagnosis: Intermittent symptoms of right facial and right upper extremity numbness. Believed to be secondary to seizure activity. Patient was started on Keppra 500 mg every 12 hours. MRI brain was also completed showing moderately extensive periventricular white matter changes some of which were reported to be perpendicular to the ventricles and mild increased signal in this region on diffusion-weighted imaging with some thinning of the corpus callosum concerning for multiple sclerosis. Findings were discussed with patient and her at bedside in detail by neurologist. Patient reports family member is a neurologist and verbalized understanding that they will need to continue Keppra as prescribed and follow-up outpatient with neurologist for further outpatient workup for MS and a prolonged EEG secondary to epileptiform activity noted on EEG completed during this hospitalization. Abnormal EEG concerning for epileptiform discharges. Hypertension. Continue metoprolol 50 mg twice daily and valsartan 160 mg twice daily. Hyperlipidemia. Continue aspirin 81 mg daily and atorvastatin 80 mg nightly. Incidental finding, pulmonary nodules left upper lung and right upper lobe. Possibly infectious/inflammatory process, recommend 3-month follow-up to monitor for resolution. Incidental finding, T5 vertebral body compression fracture deformity. If develops complaints of back pain, recommend outpatient follow-up with orthospine surgery team discharge. Hospital Course: Patient is a very pleasant 67-year-old female with a past medical history of hypertension, hyperlipidemia and nicotine dependence. She presented to the emergency department on 07/14/2023 with a chief complaint of right facial and right upper extremity numbness. Upon arrival to the hospital, patient underwent full evaluation. She was found to be in hypertensive urgency with blood pressure 199/80, heart rate 71, respiratory rate 16, temp 97.0 degrees tympanic, and SpO2 of 99% on room air. EKG was completed showing normal sinus rhythm at 64 bpm with prominent Q waves in inferior leads III and aVF. CT brain completed negative for acute intracranial process showing stable nonspecific white matter changes likely secondary to chronic small vessel ischemic disease. CTA head and neck completed showing no evidence of dissection of the cervical internal carotid arteries or vertebral arteries, no evidence of stenosis of the carotid bifurcations, no evidence of intracranial high-grade stenosis or intracranial aneurysm, and revealing a left upper lobe groundglass opacity and a right upper lobe 5 mm nodule with left upper lobe lung nodular groundglass opacity possibly representing infectious/inflammatory process recommending 3-month follow-up of right and left pulmonary nodules. CT also revealing an age-indeterminate T5 vertebral body compression deformity. Labs were completed and reviewed. CBC, coagulation profile, and BMP were unremarkable. Blood glucose was 92. Patient was admitted under our services with consultation to neurology. EEG was completed showing epileptiform discharges over the left anglican along with delta rhythmicity over bilateral temporal, left central bilateral focal region lasting between 1 to 4 seconds reporting to be epileptic in nature. Patient was started on Keppra 500 mg every 12 hours. Echocardiogram was completed showing preserved EF of 50 to 55% with no significant structural or valvular abnormalities reported. MRI brain was also completed showing moderately extensive periventricular white matter changes some of which were reported to be perpendicular to the ventricles and mild increased signal in this region on diffusion-weighted imaging with some thinning of the corpus callosum concerning for multiple sclerosis. Findings were discussed with patient and her at bedside in detail by neurologist. Patient reports family member is a samantha rologist and verbalized understanding that they will need to continue Keppra as prescribed and follow-up outpatient with neurologist for further outpatient workup for MS and a prolonged EEG secondary to epileptiform activity noted on EEG completed during this hospitalization. Patient currently free from any complaints at this time and is stable for discharge home. Patient to follow-up outpatient with PCP in 1 to 2 days and with neurologist in 1 to 2 weeks. Physical exam: Vital signs reviewed and stable. General: Nontoxic, no distress and appears stated age. Derm: Skin warm and dry, normal coloration for ethnicity. Head: Atraumatic, normocephalic and symmetric. Eyes: EOMs intact, no lid lag, and anicteric sclera Mouth: no lip lesions, mucus membranes moist Cardiovascular: regular rate and rhythm with normal S1S2, no murmur, positive posterior tibial pulses bilaterally, and cap refill < 2 seconds. Lungs: Respirations even, regular, and unlabored on room air. Lungs CTA bilaterally, no rhonchi, no rales, no wheezing, and no accessory muscle usage. Abdominal: soft, nontender to palpation, no guarding, no appreciable organomegaly Ext: ROM intact. No gross muscle atrophy, no edema, no contractures Neuro: Speech clear, face symmetrical and CN II-XII grossly intact with no noted focal neuro deficits Psych: Alert and oriented to person, place, time, and situation. Appropriate and pleasant affect. A total of 39 minutes of time were spent preparing this complex discharge summary. Pt was discharged on 07/16/2023 at 2:27 PM. Patient was seen independently by Nurse Practitioner. This document was prepared using [employer] dictation software. Please allow for errors in furnace caretaker while rare they do occur. . Rufus Denney NP rendered care for this patient independently, reviewed the findings and plan as documented in the note above. I did not physically speak with or examine the patient on this date. Patient Condition at Discharge: Stable Plan - Discharge Summary Discharge Rx Participant: Yes New Discharge Prescriptions: New levETIRAcetam [Keppra] 500 mg PO Q12HR 90 Days #180 tab Aspirin 81 mg PO DAILY 90 Days #90 tab Continue Cholecalciferol [Vitamin D3 (25 Mcg = 1000 Iu)] 25 mcg PO DAILY Rosuvastatin Calcium [Crestor] 40 mg PO HS Valsartan 160 mg PO BID Prednisolone Acetate/Pf [Prednisolone Acet 1% Eye Drop] 1 drop LEFT EYE Q2D Famotidine 20 mg PO BID Metoprolol Tartrate [Lopressor] 50 mg PO BID Alendronate Sodium [Fosamax] 70 mg PO MO Discharge Medication List Cholecalciferol [Vitamin D3 (25 Mcg = 1000 Iu)] 25 mcg PO DAILY 06/14/20 [History] Alendronate Sodium [Fosamax] 70 mg PO MO 07/14/23 [History] Famotidine 20 mg PO BID 07/14/23 [History] Metoprolol Tartrate [Lopressor] 50 mg PO BID 07/14/23 [History] Prednisolone Acetate/Pf [Prednisolone Acet 1% Eye Drop] 1 drop LEFT EYE Q2D 07/14/23 [History] Rosuvastatin Calcium [Crestor] 40 mg PO HS 07/14/23 [History] Valsartan 160 mg PO BID 07/14/23 [History] Aspirin 81 mg PO DAILY 90 Days #90 tab 07/16/23 [Rx] levETIRAcetam [Keppra] 500 mg PO Q12HR 90 Days #180 tab 07/16/23 [Rx] Follow up Appointment(s)/Referral(s): Dmitriy Miller DO [Primary Care Provider] - 07/19/23 2:20 pm Patient Instructions/Handouts: Seizure/Epilepsy Discharge Instructions & Follow-Up, Epilepsy (DC) Activity/Diet/Wound Care/Special Instructions: . Activity: As tolerated. Take breaks as needed. Diet: Heart healthy and carb consistent diet. Avoid salts, or foods with hidden salts such as canned or boxed foods and frozen dinners. Extra salt makes your heart work harder and traps the fluid in your body for longer. Special Instructions: Take all of your medications as directed and remember to keep all of your doctor's appointments and follow-up as needed. As discussed, [place] state law states no driving until seizure free for 6 months. It is also important d to avoid climbing ladders, operating dangerous or heavy machinery or unsupervised swimming until seizure free for 6 months. Also as discussed with you and your at bedside by the neurologist, it is important to follow-up outpatient with your family neurologist as discussed as you will need neurology follow-up and further evaluation for multiple sclerosis workup to be completed and a prolonged EEG secondary to the findings of epileptiform activity on your EEG noted during this hospitalization. Incidental finding, T5 vertebral body compression fracture deformity. If develops complaints of back pain, recommend outpatient follow-up with orthospine surgery team discharge Incidental finding, pulmonary nodules left upper lung and right upper lobe. Possibly infectious/inflammatory process, recommend 3-month follow-up to monitor for resolution. Thank you for allowing us to participate in your care, it was truly a pleasure having you for our patient!!! . Discharge Disposition: HOME SELF-CARE
--- NOTE | 2023-07-16 17:36 | P.PN ---
Subjective Progress Note Date: 07/16/23 Yesterday I started the patient on Keppra 500 mg twice a day because of discharges over the left temporal region seen on EEG. Patient is accompanied with her and no change in her behavioral or mood. No new neurological issues. Objective - Vital Signs Vital signs: Vital Signs Temp 97.8 F 07/16/23 11:30 Pulse 60 07/16/23 13:46 Resp 16 07/16/23 13:46 BP 151/66 07/16/23 11:30 Pulse Ox 98 07/16/23 11:30 FiO2 Intake & Output 07/15/23 07/16/23 07/16/23 18:59 06:59 18:59 Intake Total 476 480 Balance 476 480 Intake: Oral 476 480 Other: Voiding Method Toilet Toilet Toilet # Voids 1 2 - Exam GENERAL: The patient is lying in bed and is not in acute distress. NEUROLOGICAL: Higher mental function: The patient is awake, alert, oriented to self, place and time. Patient is following commands. No aphasia and no neglect. Cranial nerves: The pupils are round, equal and reactive to light and accommodation. Visual frey are full to confrontation throughout. Extraocular movement is intact no nystagmus is noted. Facial sensation is normal to touch throughout. The facial strength is normal throughout. Hearing is mildly decreased bilaterally to hand rub. Tongue is midline and moved [id number] without any difficulty. No dysarthria is noted. Shoulder shrug is normal bilaterally. Motor: The strength is 5 over 5 throughout. Normal tone and bulk. Cerebellum: Normal finger to nose heel to chin bilaterally. Sensation: Sensation is normal to touch throughout. Reflexes (right/left): 2+ throughout except ankles are 1+ Plantars are mute bilaterally. Some of the workup during his hospital visit consisted of: CBC with differential is unremarkable Chemistry panel is the sodium is 136 otherwise Chemstrip panel is unremarkable. Serum glucose is 92. CT of the head is reported as stable exam without evidence of acute process. Nonspecific white matter changes likely secondary due to chronic small vessel ischemic disease. I personally reviewed the CT and agree with report CT angiography of the head and neck was reported as no evidence of dissection of cervical internal carotid artery vertebral artery or any evidence of significant stenosis in the carotid bifurcation. No evidence of intracranial high-grade stenosis or intracranial aneurysm. Left upper lobe groundglass opacity in the right upper lobe 5 mm pulmonary nodule. Short-term follow-up recommended to ensure resolution. The left upper long nodular groundglass opacity may represent infection/inflammatory process. Consider three-month follow-up in the left upper lobe nodule. The right upper lobe nodule should be surveillance at the time and consideration at that time for yearly low-dose lung cancer screening should be made. Age indeterminate T5 vertebral compression deformity with complete height loss. Correlate with back pain. Routine EEG is abnormal. The epileptiform discharges over the left temporal can increase risk for focal seizure as well as status epilepticus. There is also dealt the rhythmicity over the bilateral temporal left central region lasting between 1-4 seconds and is seems epileptic in nature. No seizures noted during the study. Consider prolonged EEG. 2D echo was reported as normal left ventricular function. MR the brain is reported as moderately extensive periventricular white matter changes, some of which are perpendicucular the ventricle and mild increased signal in the region of diffusion weighted the imaging. There is some mild thinning of the corpus callosum. Finding can be compatible with although not diagnostic for multiple sclerosis. Extensive white matter ischemic changes and should be considered. Suspicious acute infarct is not otherwise apparent. No suspicious masses identified. I personally reviewed the MRI and agree there is no acute or subacute ischemia. There is no enhancing lesions or mass. on [id number], she does have white matter lesions and some seems suspicious for demyelinating disease - Labs CBC & Chem 7: 07/16/23 10:13 07/16/23 10:13 Labs: Abnormal Lab Results - Last 24 Hours (Table) 07/15/23 07/16/23 Range/Units 14:59 10:13 BUN 18 H (7-17) mg/dL AST 40 H (14-36) U/L Triglycerides 197.00 H (0.00-149.00) mg/dL HDL Cholesterol 73.30 H (40.00-60.00) mg/dL Assessment and Plan Assessment: This is a 67-year-old woman who presented emergency department because of the numbness over the right face involving the middle lower face as well as right upper and lower extremity with neck that started yesterday in the afternoon and lasted for a couple hours and resolved. She denies any history of stroke in the past or seizure. She has multiple syncopal episode of unknown etiology and she states they're brief lasting seconds without any post ictal confusion without any urinary or bowel incontinence. Acute transient numbness involving the face upper and lower extremity as well as the right side of the neck: Likely due to seizure (since on EEG has discharges over left temporal and with history of syncopal episode). No acute or subacute ischemia on MRI Brain. 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 No active lesion. Recurrent syncopal episode: Likely due to possible seizure episodes. Recurrent falls due to her syncopal episode. Labile hypertension X tobacco use Plan: Started the patient on Keppra 500 mg 1 tablet twice a day. Patient and her were notified about side effects of Keppra about mood/behavioral issues I recommend a prolonged EEG or epilepsy monitoring unit as outpatient for further evaluation. This needs to be coordinated by her neurologist as outpatient. Recommend further workup of demylinating disease as outpatient (such as MRI C- spine, T-spine and consider of Lumbar puncture) and we'll defer consideration of disease modifying therapy to her neurologist as an outpatient Because of the seizures concern, patient was notified that per [place] DMV to avoid driving for 6 month until seizure free, avoid the [place], swim unassisted or use heavy machinery. Seizure precaution and pads. From neurological perspective she does not have a stroke and we'll defer the use of aspirin and statin to the primary team We'll defer the rest of the medical management to primary team Upon discharge recommend the patient to follow-up with a neurologist as an outpatient within 1-2 weeks The plan discussed with the patient, her who is at bedside and the primary team. There is no further neurological workup. Time with Patient: Less than 30
== END 2023-07-16 16:42 | disposition home or self-care (01) | DRG 101 ==
LOC: EC 16:08 → 3SCARD 19:31
PROVIDERS: ADMIT Internal Medicine; ATTEND Internal Medicine
PROC: 4A10X4Z Monitoring of Central Nervous Electrical Activity, External Approach (ICD-10-PCS; principal; 2023-07-15)
DX: R56.9 Unspecified convulsions (principal); M48.54XA Collapsed vertebra, not elsewhere classified, thoracic region, initial encounter for fracture; I16.0 Hypertensive urgency; R20.0 Anesthesia of skin; E78.5 Hyperlipidemia, unspecified; R91.1 Solitary pulmonary nodule; I08.1 Rheumatic disorders of both mitral and tricuspid valves; F41.9 Anxiety disorder, unspecified; I10 Essential (primary) hypertension; R29.6 Repeated falls; Z79.82 Long term (current) use of aspirin; Z79.83 Long term (current) use of bisphosphonates; Z79.899 Other long term (current) drug therapy; Z82.49 Family history of ischemic heart disease and other diseases of the circulatory system; Z90.710 Acquired absence of both cervix and uterus; Z88.1 Allergy status to other antibiotic agents; Z88.8 Allergy status to other drugs, medicaments and biological substances
CPT/HCPCS: 36415; 70450; 70496; 70498; 70553; 80048; 80053; 80061; 83735; 85025; 85027; 85610; 85730; 93005; 93306; 95816; 99285

== ENCOUNTER → 2023-07-26 | Outpatient (CLI) | payer MEDICARE ==
--- NOTE | 2023-07-26 14:29 | US ---
EXAMINATION TYPE: US renal artery duplex complet DATE OF EXAM: 07/26/2023 COMPARISON: NONE CLINICAL INDICATION: Female, 67 years old with history of Q27.1 CONGENITAL RENAL ARTERY STENOSIS; MEASUREMENTS: RENAL SIZE: Right Kidney: 8.6 x 3.1 x 4.0cm Left Kidney: 9.4 x 4.7 x 4.5cm Right Kidney: small in size Left Kidney: wnl Abd Aorta: atherosclerotic changes RESISTANCE INDEX Right: 0.72 Left: 0.73 RA/AO RATIO (< 3.5 ) Right: 3.5 Left: 4.1 RENAL ARTERY VELOCITY ( < 180 cm/s) Right: 203.7 Left: 241.2 IMPRESSION: Bilateral renal artery stenosis difficult to exclude.
== END | disposition home or self-care (01) ==
LOC: RADUSWWP 12:17
PROVIDERS: ATTEND Internal Medicine Clinical Cardiac Electrophysiology
DX: Q27.1 Congenital renal artery stenosis (principal)
CPT/HCPCS: 93975

== ENCOUNTER → 2023-08-15 | Outpatient (CLI) | payer MEDICARE ==
[2023-08-15 16:05] LABS: African American GFR (CKD) 73 (>60 ml/min/1.73 sqM); Blood Urea Nitrogen 26 mg/dL (7-17); Non-African American GFR(CKD) 63 (>60 ml/min/1.73 sqM)
--- NOTE | 2023-08-17 09:38 | CT ---
EXAMINATION TYPE: CT angio abdomen CT DLP: 202 mGycm, Automated exposure control for dose reduction was used. DATE OF EXAM: 08/15/2023 4:47 PM COMPARISON: CT abdomen 05/15/2022. CLINICAL INDICATION:Female, 67 years old with history of renal artery stenosis. TECHNIQUE: Multiple thin slice sub-millimeter images were obtained after administration of contrast. 3-D reconstructed images and maximum intensity projection images were obtained. CT angio abdomen CT Contrast: Contrast used:100ml mL of Isovue 370 with IV Contrast, Oral contrast used: without Oral Contrast None FINDINGS: CTA Abdomen and pelvis: The abdominal aorta does not demonstrate aneurysmal dilatation. Atherosclero tic plaquing is identified within the abdominal aorta. The origins of the superior mesenteric artery , renal arteries, inferior mesenteric artery, and celiac axis are patent. Mild atherosclerotic disea se of the proximal renal arteries and origins are present without significant stenosis. The iliac ves sels are normal in morphology LOWER CHEST: No evidence of focal consolidation, pneumothorax or pleural effusion. LIVER: Unremarkable GALLBLADDER AND BILE DUCTS: Unremarkable. PANCREAS: Unremarkable. SPLEEN: Unremarkable. ADRENAL GLANDS: Unremarkable. KIDNEYS AND URETERS: No evidence of hydronephrosis or renal calculus. The ureters are unremarkable. STOMACH AND BOWEL: Stomach and duodenum are unremarkable No evidence of bowel obstruction. PERITONEUM: No evidence of pneumoperitoneum or free fluid. MUSCULOSKELETAL: Mild disc degeneration changes are present throughout the thoracolumbar spine. LYMPH NODES: No gross evidence for lymphadenopathy. SOFT TISSUE/ABDOMINAL WALL: Unremarkable IMPRESSION 1. No evidence of vascular occlusion or significant renal artery stenosis. 2. Atherosclerotic disease involving abdominal aorta.
== END | disposition home or self-care (01) ==
LOC: RADCTMAIN 15:03
PROVIDERS: ATTEND Internal Medicine Clinical Cardiac Electrophysiology
DX: I70.0 Atherosclerosis of aorta (principal); Q27.1 Congenital renal artery stenosis; I10 Essential (primary) hypertension
CPT/HCPCS: 82565; 84520; 74175; 36415; Q9967

== ENCOUNTER → 2023-10-24 | Outpatient (CLI) | payer MEDICARE ==
--- NOTE | 2023-10-31 12:26 | CT ---
EXAMINATION TYPE: CT chest wo con CT DLP: 102.7 mGycm, Automated exposure control for dose reduction was used. DATE OF EXAM: 10/24/2023 11:17 AM COMPARISON: Chest radiograph from same day. Multiple CTs of the chest with most recent on . CLINICAL INDICATION:Female, 67 years old with history of R91.1 SOLITARY PULMONARY NODULE; [facility], SOLITA RY PULMONARY NODULE TECHNIQUE: Multiple axial images were obtained through the chest. Sagittal and coronal reformats were created for review. Contrast used: mL of (None if empty) Oral contrast used: (None if empty) FINDINGS: LUNGS/ PLEURA: A few patchy foci of groundglass attenuation are seen bilaterally. A 5 mm nodule in t he right middle lobe on series 4, image 19. Pleural-based nodule in the inferior right lower lobe carmita sures 2 mm, series 4, image 24. In the left lung has a pleural-based 4 mm nodule seen on series 4, im age 71 AIRWAY: Patent and unremarkable. HEART: Size within normal limits. MEDIASTINUM: No gross evidence of adenopathy. VASCULATURE: No aortic aneurysm. MUSCULOSKELETAL: No acute osseous abnormalities SOFT TISSUES/LYMPH NODES: Unremarkable. LOWER NECK: No significant findings. UPPER ABDOMEN: No significant findings. IMPRESSION: Multiple solid nodules < 6 mm low-risk patients: no routine follow-up required. high-risk patients: optional CT at 12 months. Follow up recommendations for incidental pulmonary nodules, if there are any, are per [employer] or [employer]. [email or web address]?lang=us
== END | disposition home or self-care (01) ==
LOC: RADCTMAIN 10:58
PROVIDERS: ATTEND Family Medicine
DX: R91.8 Other nonspecific abnormal finding of lung field (principal)
CPT/HCPCS: 71250

== ENCOUNTER → 2024-03-20 | Outpatient (CLI) | payer MEDICARE ==
--- NOTE | 2024-03-29 17:17 | MM ---
Reason for Exam: Screening (asymptomatic). Last mammogram was performed 1 year(s) and 7 month(s) ago. Patient History: Menarche at age 12. First Full-Term at age 20. Left ovary removed at age 27. Right ovary removed at age 27. Hysterectomy at age 27. Postmenopausal. Sister had breast cancer, age 50. Risk Values: Christy 5 year model risk: 3.0%. NCI Lifetime model risk: 8.7%. Prior Study Comparison: 04/27/2020 Bilateral Diagnostic Mammogram, [facility]. 08/23/2021 Bilateral Screening Mammogram, [facility]. 08/24/2022 Bilateral MG 3D screening mammo w/cad, [facility]. Tissue Density: The breasts are heterogeneously dense, which may obscure small masses. Findings: Analyzed By CAD. The pattern is symmetrical. Chronic nodularity within the left breast. There is core marker within the left breast. No significant interval change is evident. No suspicious groups of microcalcifications, spiculated or lobular masses, architectural distortion or other secondary signs of malignancy are mammographically apparent. Overall Assessment: Benign, BI-RAD 2 Management: Screening Mammogram of both breasts in 1 year. A negative mammogram report should not preclude additional follow up of suspicious palpable abnormalities. Patient should continue monthly self breast exam. A clinical breast exam by your physician is recommended on an annual basis and results should be correlated with mammographic findings. Note on Christy scores and lifetime risk: 1. A Hcristy score greater than 3% is considered moderate risk. If this is the case, consider specialist referral to assess eligibility for a risk reducing agent. 2. If overall lifetime risk for the development of breast cancer is 20% or higher, the patient may qualify for future screening with alternating mammogram and breast MRI. [facility], , 03/29/2024 5:14 PM. Electronically signed and approved by: Ralph Richardson D.O. Radiologis
== END | disposition home or self-care (01) ==
LOC: RADMAMWWP 13:52
PROVIDERS: ATTEND Family Medicine
DX: Z12.31 Encounter for screening mammogram for malignant neoplasm of breast (principal); Z78.0 Asymptomatic menopausal state; Z80.3 Family history of malignant neoplasm of breast; Z90.722 Acquired absence of ovaries, bilateral; R92.333 Mammographic heterogeneous density, bilateral breasts
CPT/HCPCS: 77063; 77067

== ENCOUNTER 2024-03-24 23:43 | Emergency (ER) | payer MEDICARE ==
[2024-03-24 23:48] VITALS: RESP 18
--- NOTE | 2024-03-25 00:35 | XR ---
EXAMINATION TYPE: XR wrist limited RT DATE OF EXAM: 03/25/2024 12:14 AM COMPARISON: None CLINICAL INDICATION: Female, 68 years old with history of FOOSH; [facility] TECHNIQUE: XR wrist limited RT; examined in the frontal and lateral views. FINDINGS/IMPRESSION: Acute distal radius fracture with slight posterior displacement and shortening and dorsal angulation. There is associated soft tissue swelling. Fracture extends into the distal radioulnar joint. [facility], , 03/25/2024 12:33 AM
--- NOTE | 2024-03-25 00:36 | XR ---
EXAMINATION TYPE: XR Hip RT and AP Pelvis DATE OF EXAM: 03/25/2024 12:17 AM COMPARISON: 11/15/2020 CLINICAL INDICATION: Female, 68 years old with history of fall; [facility] TECHNIQUE: XR Hip RT and AP Pelvis; hip was examined in the frontal and lateral projections and a AP pelvis. FINDINGS: Fixation changes to the bilateral hips. Hardware appears intact. No evidence for acute frac ture. IMPRESSION: 1. Post fixation changes without evidence of hardware failure. 2. No evidence of fracture. [facility], , 03/25/2024 12:33 AM
--- NOTE | 2024-03-25 01:29 | ED ---
Fall HPI - General Chief Complaint: Fall Stated Complaint: Fall - Rt Wrist injury Time Seen by Provider: 03/24/24 23:50 Source: patient Mode of arrival: ambulatory - History of Present Illness Initial Comments: 68-year-old female presenting with chief complaint of right wrist pain. Patient tripped and fell at home falling onto her right side. She caught herself with her right outstretched hand. She is still able to move the hand. She is also complaining of some right hip pain. She denies any head injury, loss of consciousness, or use of blood thinners. No numbness tingling or weakness. No chest pain difficulty breathing or abdominal pain. - Related Data Home Medications Medication Instructions Recorded Confirmed Cholecalciferol [Vitamin D3 (25 25 mcg PO DAILY 06/14/20 07/14/23 Mcg = 1000 Iu)] Alendronate Sodium [Fosamax] 70 mg PO MO 07/14/23 07/14/23 Famotidine 20 mg PO BID 07/14/23 07/14/23 Metoprolol Tartrate [Lopressor] 50 mg PO BID 07/14/23 07/14/23 Prednisolone Acetate/Pf 1 drop LEFT EYE Q2D 07/14/23 07/14/23 [Prednisolone Acet 1% Eye Drop] Rosuvastatin Calcium [Crestor] 40 mg PO HS 07/14/23 07/14/23 Valsartan 160 mg PO BID 07/14/23 07/14/23 Previous Rx's Medication Instructions Recorded Aspirin 81 mg PO DAILY 90 Days #90 tab 07/16/23 levETIRAcetam [Keppra] 500 mg PO Q12HR 90 Days #180 tab 07/16/23 Allergies Allergy/AdvReac Type Severity Reaction Status Date / Time red dye Allergy Unknown Verified 03/24/24 23:48 amoxicillin [From Augmentin] AdvReac SEVERE Verified 03/24/24 23:48 YEAST INFECTION clavulanic acid AdvReac SEVERE Verified 03/24/24 23:48 [From Augmentin] YEAST INFECTION pumpkin seeds Allergy Swelling Uncoded 03/24/24 23:48 Review of Systems ROS Statement: Those systems with pertinent positive or pertinent negative responses have been documented in the HPI. ROS Other: All systems not noted in ROS Statement are negative. Past Medical History Past Medical History: Hypertension Additional Past Medical History / Comment(s): hx. heart murmur-no tx. FX RT ANKLE 06/14/20. Osteoperosis History of Any Multi-Drug Resistant Organisms: None Reported Past Surgical History: Hysterectomy, Orthopedic Surgery Additional Past Surgical History / Comment(s): ORIF right femur, ORIF left hip fx., ORIF left wrist, COLONOSCOPY Past Anesthesia/Blood Transfusion Reactions: No Reported Reaction Past Psychological History: No Psychological Hx Reported Smoking Status: Former smoker Past Alcohol Use History: None Reported Past Drug Use History: None Reported - Past Family History Father Family Medical History: Diabetes Mellitus Mother Family Medical History: Diabetes Mellitus, Hypertension General Exam General appearance: alert, in no apparent distress Head exam: Present: atraumatic, normocephalic, normal inspection Eye exam: Present: normal appearance, PERRL, EOMI Neck exam: Present: normal inspection. Absent: meningismus Respiratory exam: Present: normal lung sounds bilaterally. Absent: respiratory distress, wheezes, rales, rhonchi, stridor Cardiovascular Exam: Present: regular rate, normal rhythm, normal heart sounds. Absent: systolic murmur, diastolic murmur, rubs, gallop, clicks Right Hand Wrist exam: Present: tenderness, swelling, deformity Vascular: Absent: vascular compromise Neurological exam: Present: alert, oriented X3 Expanded Eye Response: (4) open spontaneously Motor Response: (6) obeys commands Verbal Response: (5) oriented Wanda Total: 15 Psychiatric exam: Present: normal affect, normal mood Skin exam: Present: warm, dry Course Vital Signs 03/24/24 03/25/24 23:44 01:48 Temperature 98.1 F 97.9 F Pulse Rate 90 69 Respiratory 18 18 Rate Blood Pressure 193/95 148/75 O2 Sat by Pulse 96 96 Oximetry Medical Decision Making - Medical Decision Making Was pt. sent in by a medical professional or institution (, PA, AGRI BUSINESS AGENT, urgent care, hospital, or half-way...) When possible be specific @ -No Did you speak to anyone other than the patient for history (EMS, parent, family, police, friend...)? What history was obtained from this source @ -No Did you review nursing and triage notes (agree or disagree)? Why? @ -I reviewed and agree with nursing and triage notes Were old charts reviewed (outside hosp., previous admission, EMS record, old EKG, old radiological studies, urgent care reports/EKG's, half-way records)? Report findings @ -No old charts were reviewed Differential Diagnosis (chest pain, altered mental status, abdominal pain women, abdominal pain men, vaginal bleeding, weakness, fever, dyspnea, syncope, headache, dizziness, GI bleed, back pain, seizure, CVA, palpatations, mental health, musculoskeletal)? @ -Differential includes fracture, dislocation, sprain, strain, this is not an all-inclusive list EKG interpreted by me (3pts min.). @ -As above X-rays interpreted by me (1pt min.). @ -X-ray shows acute distal radius fracture with slight posterior displacement and shortening and dorsal angulation. There is associated soft tissue swelling. Fracture extends into the distal radial ulnar joint Hip x-ray shows post fixation changes without evidence of hardware failure. No evidence of fracture. CT interpreted by me (1pt min.). @ -None done U/S interpreted by me (1pt. min.). @ -None done What testing was considered but not performed or refused? (CT, X-rays, U/S, labs)? Why? @ -None What meds were considered but not given or refused? Why? @ -None Did you discuss the management of the patient with other professionals (professionals i.e. , PA, AGRI BUSINESS AGENT, lab, RT, psych nurse, social work job titles, well tester, teacher, loss prevention officer, case assembler)? Give summary @ -No Was smoking cessation discussed for >3mins.? @ -No Was critical care preformed (if so, how long)? @ -No Were there social determinants of health that impacted care today? How? (Homelessness, low income, unemployed, alcoholism, drug addiction, transportation, low edu. Level, literacy, decrease access to med. care, detention, rehab)? @ -No Was there de-escalation of care discussed even if they declined (Discuss DNR or withdrawal of care, Hospice)? DNR status @ -No What co-morbidities impacted this encounter? (DM, HTN, Smoking, COPD, CAD, Cancer, CVA, ARF, Chemo, Hep., AIDS, mental health diagnosis, sleep apnea, morbid obesity)? @ -None Was patient admitted / discharged? Hospital course, mention meds given and route, prescriptions, significant lab abnormalities, going to OR and other pertinent info. @ -68-year-old female presenting with chief complaint of right wrist injury after a fall at home today. No head injury loss of consciousness or use of blood thinners. X-rays positive for distal radius fracture. Negative x-ray of the right hip and pelvis. Reduction is attempted and preliminary reading shows improved alignment on the lateral view. Patient is neurovascularly intact. Sugar-tong splint is applied. Patient is instructed to follow-up with her orthopedist Dr. Chamorro, call the office tomorrow. Discharged. Follow-up with PCP. Report back to ER with any new or worsening symptoms. Discussed return parameters and answered all questions. Patient conveyed verbal understanding and agreed to the plan. I discussed this case in detail with my attending Dr. Weiner Undiagnosed new problem with uncertain prognosis? @ -No Drug Therapy requiring intensive monitoring for toxicity (Heparin, Nitro, Insulin, Cardizem)? @ -No Were any procedures done? @ -Splint applied Diagnosis/symptom? @ -Wrist fracture Acute, or Chronic, or Acute on Chronic? @ -Acute Uncomplicated (without systemic symptoms) or Complicated (systemic symptoms)? @ -Uncomplicated Side effects of treatment? @ -No Exacerbation, Progression, or Severe Exacerbation? @ -No Poses a threat to life or bodily function? How? (Chest pain, USA, PR, pneumonia, PE, COPD, DKA, ARF, appy, cholecystitis, CVA, Diverticulitis, Homicidal, Suicidal, threat to staff... and all critical care pts) @ -Threat to function if proper follow-up is not adheared to Disposition Clinical Impression: Wrist fracture Disposition: HOME SELF-CARE Condition: Good Instructions (If sedation given, give patient instructions): Wrist Fracture in Adults (ED) Additional Instructions: Follow-up with your orthopedist. Report back to ER with any new or worsening symptoms. Take Motrin and Tylenol as needed for pain control. Is patient prescribed a controlled substance at d/c from ED?: No Referrals: Dmitriy Miller DO [Primary Care Provider] - 1-2 days Shashi Llamas MD [STAFF PHYSICIAN] - 1-2 days
[2024-03-25 01:49] VITALS: BP 148/75; PULSE 69; TEMP 97.9
--- NOTE | 2024-03-25 02:45 | XR ---
EXAM: XR Right Wrist Complete, 3 or More Views CLINICAL HISTORY: wrist fx TECHNIQUE: Frontal, lateral and oblique views of the right wrist. COMPARISON: No relevant prior studies available. FINDINGS: Bones/joints: Comminuted horizontal fracture of distal radial metastasis, possibly extending to the epiphysis has 9 mm radial 4 mm dorsal displacement. Comminuted ulnar styloid fracture, minimally displaced. No dislocation. Suspect nondisplaced fracture at the waist of scaphoid. Osteopenia. Dorsal intercalated segment instability suspected. Soft tissues: Associated moderate soft tissue swelling without gas. No radiopaque foreign body. IMPRESSION: 1. Comminuted horizontal fracture of distal radial metastasis, possibly extending to the epiphysis has 9 mm radial 4 mm dorsal displacement. 2. Comminuted ulnar styloid fracture, minimally displaced. 3. Suspect nondisplaced fracture at the waist of scaphoid. 4. Dorsal intercalated segment instability suspected.
== END 2024-03-25 02:18 | disposition home or self-care (01) ==
LOC: EC 23:43
DX: S52.501A Unspecified fracture of the lower end of right radius, initial encounter for closed fracture (principal); Z87.891 Personal history of nicotine dependence; Z88.0 Allergy status to penicillin; Z88.1 Allergy status to other antibiotic agents; Z91.048 Other nonmedicinal substance allergy status; W01.0XXA Fall on same level from slipping, tripping and stumbling without subsequent striking against object, initial encounter; Y92.009 Unspecified place in unspecified non-institutional (private) residence as the place of occurrence of the external cause
CPT/HCPCS: 29125; 73502; 99283

== ENCOUNTER → 2024-03-26 | Outpatient (CLI) | payer MEDICARE ==
[2024-03-26 19:24] LABS: Basophils # (A) 0.06 X 10*3/uL (0.00-0.10); Basophils % (A) 0.8 %; Eosinophils # (A) 0.25 X 10*3/uL (0.04-0.35); Eosinophils % (A) 3.4 %; HCT 35.8 % (37.2-46.3); HGB 11.8 g/dL (12.0-15.0); Lymphocytes # (A) 2.05 X 10*3/uL (0.90-5.00); Lymphocytes % (A) 27.7 %; MCH 32.6 pg (27.0-32.0); MCV 98.9 FL (80.0-97.0); Mean Platelet Volume 10.7 FL (9.5-12.2); Monocytes # (A) 0.62 X 10*3/uL (0.20-1.00); Monocytes % (A) 8.4 %; NRBC Per 100 WBC 0 X 10*3/uL (0.00-0.01); Neutrophils # (A) 4.38 X 10*3/uL (1.80-7.70); Neutrophils % (A) 59.3 %; Platelet Count 278 X 10*3/uL (140-440); RBC 3.62 X 10*6/uL (4.10-5.20); RDW 12.9 % (11.5-14.5); WBC 7.39 X 10*3/uL (4.50-10.00)
[2024-03-26 20:05] LABS: BUN/Creat Ratio 14.67 Ratio (12.00-20.00); Blood Urea Nitrogen 17.6 mg/dL (9.0-27.0); Calcium 9.8 mg/dL (8.7-10.3); Carbon Dioxide 24.9 mmol/L (21.6-31.8); Chloride 97 mmol/L (96-109); Glucose 93 mg/dL (70-110); Potassium 4.6 mmol/L (3.5-5.5); Sodium 135 mmol/L (135-145)
== END | disposition home or self-care (01) ==
LOC: LABPAT 12:18
PROVIDERS: ATTEND Orthopaedic Surgery
DX: Z01.818 Encounter for other preprocedural examination (principal); S52.551A Other extraarticular fracture of lower end of right radius, initial encounter for closed fracture
CPT/HCPCS: 36415; 80048; 85025; 93005

== ENCOUNTER 2024-03-31 13:32 | Day surgery (SDC) | payer MEDICARE ==
[2024-03-26 16:10] VITALS: BMI 20.7
--- NOTE | 2024-03-30 09:15 | P.HPOR ---
History of Present Illness H&P Date: 03/30/24 Chief Complaint: Right wrist pain The patient is a 68-year-old female presents after falling on 03/24/2024. She hurt her right wrist. Initially she was seen in the emergency room and underwent attempted closed reduction of her right wrist fracture. She's been in the splint since. She denies previous injury. Review of Systems Per HPI Past Medical History Past Medical History: Hypertension Additional Past Medical History / Comment(s): hx. heart murmur-no tx. FX RT ANKLE 06/14/20. Osteoperosis, fx. R wrist History of Any Multi-Drug Resistant Organisms: None Reported Past Surgical History: Hysterectomy, Orthopedic Surgery Additional Past Surgical History / Comment(s): ORIF right femur, ORIF left hip fx., ORIF left wrist, COLONOSCOPY Past Anesthesia/Blood Transfusion Reactions: No Reported Reaction Additional Past Anesthesia/Blood Transfusion Reaction / Comment(s): Has trouble waking up. Smoking Status: Former smoker - Past Family History Father Family Medical History: Diabetes Mellitus Mother Family Medical History: Diabetes Mellitus, Hypertension Medications and Allergies Home Medications Medication Instructions Recorded Confirmed Type Cholecalciferol [Vitamin D3 (25 25 mcg PO DAILY 06/14/20 03/26/24 History Mcg = 1000 Iu)] Alendronate Sodium [Fosamax] 70 mg PO MO 07/14/23 03/26/24 History Famotidine 20 mg PO BID 07/14/23 03/26/24 History Metoprolol Tartrate [Lopressor] 50 mg PO BID 07/14/23 03/26/24 History Prednisolone Acetate/Pf 1 drop LEFT EYE Q2D 07/14/23 03/26/24 History [Prednisolone Acet 1% Eye Drop] Rosuvastatin Calcium [Crestor] 40 mg PO HS 07/14/23 03/26/24 History Valsartan 160 mg PO BID 07/14/23 03/26/24 History Aspirin 81 mg PO DAILY 90 Days #90 tab 07/16/23 03/26/24 Rx Ibuprofen [Advil] 400 mg PO Q6HR PRN 03/26/24 03/26/24 History Triamterene 25 mg PO DAILY 03/26/24 03/26/24 History Allergies Allergy/AdvReac Type Severity Reaction Status Date / Time red dye Allergy Unknown Verified 03/26/24 15:52 amoxicillin [From Augmentin] AdvReac SEVERE Verified 03/26/24 15:52 YEAST INFECTION clavulanic acid AdvReac SEVERE Verified 03/26/24 15:52 [From Augmentin] YEAST INFECTION pumpkin seeds Allergy Swelling Uncoded 03/26/24 15:52 Physical Examination - Wrist & Hand right Location of pain: dorsal wrist Results The patient is a well-developed well-nourished female approximately 5 foot 2, 110 pounds of mesomorphic habitus. HEENT exam is nonfocal, neck supple. She is nontender about the right shoulder and elbow. On examination the right wrist, she has moderate dorsal swelling. Skin is intact. She is tender over the distal radius. She has moderate digital stiffness. Her distal neurovascular appears intact right upper extremity. She fires the EPL. - Diagnostic results Wrist/Hand MRI: image reviewed (2 views of the right wrist obtained the office show an extra articular distal radius fracture with dorsal comminution and angulation. Moderate displacement is noted.) Assessment and Plan Assessment: Displaced right extra-articular distal radius fracture Plan: I talked to the patient at length regarding her condition along with treatment options. She has a significantly displaced right distal radius fracture despite attempted closed reduction. After a thorough discussion she opts to proceed with surgery. We'll proceed with open reduction and internal fixation likely with a volar distal radius plate. Tensely we will keep the patient for 23 hour hold postoperatively. Risks and benefits were discussed at length in layman's terms.
[~2024-03-31 13:32] MED LIST changes: -DEXAMETHASONE SOD PHOSPHATE 4 MG/ML 1 ML VIAL IV ONE; +HYDROmorphone 0.5 MG/0.5 ML SYRINGE IVP PRN; -ONDANSETRON 4 MG/2 ML VIAL IVP ONE
[2024-03-31] MEDS: DEXAMETHASONE SOD PHOSPHATE 4 MG/ML 1 ML VIAL IV ONE (14:03)
[2024-03-31] MEDS: ONDANSETRON 4 MG/2 ML VIAL IVP ONE (14:04)
[2024-03-31] MEDS: IV FLUID CONTINUATION 1,000 ML IV ONE (14:14)
[2024-03-31] MEDS: LACTATED RINGERS 1,000 ML IV SCH (14:14)
[2024-03-31] MEDS: MIDAZOLAM 2 MG/2 ML VIAL IV PRN (14:20)
--- NOTE | 2024-03-31 14:40 | P.ANPRN ---
Procedure Note - Anesthesia - Nerve Block Performed Right Supraclavicular Single Time Out Performed: Yes Date of Procedure: 03/31/24 Procedure Start Time: 14:20 Procedure Stop Time: 14:25 Location of Patient: PreOp Indication: Acute Post-Operative Pain, Analgesia, Requested by Surgeon Sedation Type: Sedate with meaningful contact maintained Preparation: Sterile Prep Position: Sitting Catheter: None Needle Types: Pajunk Needle Gauge: 21 Ultrasound used to visualize needle placement: Yes Ultrasound used to observe medication spread: Yes Injectate: 0.5% Ropivacaine (see comment for volume) ([id number]+Decadron 4mg) Blood Aspirated: No Pain Paresthesia on Injection Noted: No Resistance on Injection: Normal Image Stored and Saved: Yes Events: Uneventful and Well Tolerated
[2024-03-31] MEDS ORDERED: IBUPROFEN 400 MG TAB PO PRN (16:34)
--- NOTE | 2024-03-31 16:34 | P.OP ---
Date of Procedure: 03/31/24 Preoperative Diagnosis: Displaced/comminuted right extra-articular distal radius fracture Postoperative Diagnosis: Same Procedure(s) Performed: Open reduction and internal fixation right extra-articular distal radius fracture utilizing a volar plate Implants: Biomet DVR narrow volar distal radial plate Anesthesia: AVELINO Surgeon: Shashi Llamas Packager Or Packer And Weigher #1: Twan Squires Estimated Blood Loss (ml): 2 Pathology: none sent Condition: stable Disposition: PACU Indications for Procedure: The patient is a 68-year-old female who presents after falling injuring her right wrist recently. Upon evaluation she was noted of a displaced comminuted extra-articular distal radius fracture on the right. She underwent a attempted closed reduction in the emergency room with only slight improvement in terms of alignment. A discussion of the risks and benefits of operative intervention versus continued conservative measures was made with the patient. She opted to proceed with surgery. Operative risks include infection, neurovascular injury, development of blood clots, possible development of nonunion/malunion, possible hardware failure and possible need for subsequent procedures was discussed. Informed consent was obtained. Operative Findings: As below Description of Procedure: The patient was brought to the operating room, and after induction of general anesthesia the right upper extremity was prepped and draped in normal fashion. A 6 cm volar incision was made centered over the distal portion of the flexor carpi radialis. Skin was incised sharply. Subcutaneous tissues were divided bluntly. Electrocautery was used for hemostasis. The sheath overlying the FCR was opened. The tendon was gently retracted ulnarly. The underlying fascia was opened. The contents of the carpal canal were then bluntly dissected ulnarly. The pronator quadratus was elevated off the distal radius. The fracture site was identified and cleaned of clot and debris. This was then provisionally reduced. This was done with the aid of fluoroscopy. I did step cut the brachial radialis to help facilitate reduction. A narrow volar plate was then provisionally attached with K wires and reduction/placement was checked with fluoroscopy on the AP and elevated lateral views. This was placed at the watershed line distally. 2.9 mm cortical screws the appropriate length were placed in the proximal plate. Smooth locking pegs were placed in the proximal row first of the appropriate length and then the distal row. These were verified with fluoroscopy. Final fluoroscopic views showed adequate reduction of the fracture and placement of the implant. The wound was irrigated with normal saline. The pronator quadratus was reapproximated with simple 3-0 Vicryl sutures. The subcutaneous tissues reapproximated interrupted 3-0 Vicryl sutures. The skin was reapproximated with 4-0 subcuticular Prolene suture. Steri-Strips were applied. A sterile dressing was applied in addition to a volar splint. The tourniquet was deflated with approximately 79 minutes total tourniquet time. The patient was awoken from general anesthesia and transferred to recovery in good condition. Blood loss is estimated 2 cc. No complications were incurred. Sponge and needle counts were correct at the end the case. Robert DOTSON assisted during the major components the case to include positioning, exposure, reduction, implantation, and closure.
[2024-03-31] MEDS ORDERED: HYDROcodone/APAP 5-325MG 1 EACH TAB PO PRN (16:35)
--- NOTE | 2024-03-31 16:55 | XR ---
EXAMINATION TYPE: XR wrist limited RT, FL guidance operating room DATE OF EXAM: 03/31/2024 4:42 PM COMPARISON: Pre Operative Images if available both CT/MRI or plain film CLINICAL INDICATION: Female, 68 years old with history of S52.551A RIGHT DISTAL RADIUS FRACTURE; TECHNIQUE: XR wrist limited RT, FL guidance operating room, multiple fluoroscopic images provided for procedure. Total fluoroscopy time: 43 seconds Total submitted images to PACS: 5 DAP: 0.1336 mGym2 Gycm2 uGym2 cGycm2 or equivalent. FINDINGS: Fluoroscopic images during internal fixation/arthroplasty demonstrate fixation hardware in appropriat e position. Hardware appears intact. No immediate complication identified. IMPRESSION: 1. No evidence for intraoperative complication. 2. Please see the operative/procedural note for further details. [facility], , 03/31/2024 4:53 PM
[2024-03-31] MEDS: prednisoLONE ACETATE 1% OPHTH DROPS 5 ML BTL LEFT EYE SCH (18:56)
[2024-03-31] MEDS: FAMOTIDINE 20 MG TAB PO SCH (22:18)
[2024-03-31] MEDS: ATORVASTATIN 80 MG TAB PO SCH (22:18)
[2024-03-31] MEDS: METOPROLOL TARTRATE 50 MG TAB PO SCH (22:19)
[2024-03-31] MEDS: VALSARTAN 160 MG TAB PO SCH (22:30)
[2024-04-01 01:29] VITALS: RESP 20
[2024-04-01 08:35] VITALS: BP 164/74; PULSE 73; TEMP 97.6
[2024-04-01] MEDS: ASPIRIN 81 MG PO SCH (08:48)
[2024-04-01] MEDS: CHOLECALCIFEROL 25 MCG (1000 IU) TABLET PO SCH (08:48)
[2024-04-01] MEDS: TRIAMTERENE 50 MG PO SCH (08:51)
--- NOTE | 2024-04-01 10:11 | P.PN ---
Subjective Progress Note Date: 04/01/24 Principal diagnosis: Status post ORIF right distal radius fracture Patient is evaluated at bedside, she is resting comfortably in bed. Patient's block is started to wear off, she is getting feeling back in the hand and wrist. She has minimal discomfort at this time. She denies headaches, lightheadedness, chest pain or shortness of breath Objective - Vital Signs Vital signs: Vital Signs Temp 97.6 F 04/01/24 08:34 Pulse 73 04/01/24 08:34 Resp 20 04/01/24 01:28 BP 164/74 04/01/24 08:34 Pulse Ox 98 04/01/24 08:34 FiO2 Intake & Output 03/31/24 04/01/24 04/01/24 18:59 06:59 18:59 Intake Total 950 Output Total 2 Balance 948 Weight 52 kg 52 kg Intake: IV 950 Output: Estimated Blood Loss 2 Other: Voiding Method Toilet # Voids 2 - Exam Right upper extremity: Volar wrist splint is in good position in good condition with Buddy bandage fixation. No significant swelling appreciated in the fingers. Sensation to light touch both proximal distal to the splint are intact. Cap refills less than 3 seconds Assessment and Plan Assessment: Postoperative day #1 status post ORIF right distal radius fracture Plan: Pain control, patient has multiple medications at home Wound care instructions were discussed, this to include not taking off the splint, keeping it dry and clean, keeping it covered while showering Activity level restrictions were discussed with patient Stable for discharge home today and follow-up in the outpatient setting in 2 weeks Time with Patient: Less than 30
--- NOTE | 2024-04-01 10:13 | P.DS ---
Providers Date of admission: 03/31/2024 Expected date of discharge: 04/01/24 Attending physician: Shashi Llamas Primary care physician: Dmitriy [facility] Course: Date of admission: 03/31/2024 Date of discharge: 04/01/2024 Admission diagnosis: Status post ORIF right distal radius fracture Discharge diagnosis: Same Attending physician: Dr. Llamas Surgical procedures: ORIF right distal radius fracture Brief history: Patient is a 68-year-old female who was evaluated in the outpatient setting by Dr. Chamorro after injuring her right wrist. It was determined she had a displaced and comminuted extra-articular right distal radius fracture. Treatment options were discussed, patient signed consent for a open reduction internal fixation of the right distal radius fracture. Hospital course: Details of patient's surgery can be found in operative report. Patient tolerated the procedure well and was subsequently transported to orthopedic floor. Patient's orthopeidc and medical care was provided daily. Patient had daily laboratory tests performed for evaluation of overall blood counts. Patient had daily physical therapy to include strengthening range of motion as well as education with walker ambulation. Patient was noted to have a relatively uneventful postoperative course. Patient reported satisfactory pain control with oral pain medications by postoperative day 0. Patient showed satisfactory progress with physical therapy. Patient moved steadily through the program and had no difficulty meeting the goals by postoperative day 1. Given patient's otherwise satisfactory course and having met physical therapy goals, plan is to discharge patient [home] on postoperative day 1. Discharge condition/disposition: Patient will be discharged [home] in stable condition. Discharge medications: Instructions are given on resumption of patient's normal daily medications per primary care recommendation, in addition patient will be prescribed no new medication. Discharge instructions: 1. Do not remove splint 2. Keep splint covered and dry, keep covered while showering 3. Nonweightbearing right upper extremity 4. Plan for [facility] at [facility] 2 weeks for recheck Procedures: Open reduction internal fixation right distal radius fracture Patient Condition at Discharge: Good Plan - Discharge Summary Discharge Rx Participant: Yes New Discharge Prescriptions: No Action Cholecalciferol [Vitamin D3 (25 Mcg = 1000 Iu)] 25 mcg PO DAILY Rosuvastatin Calcium [Crestor] 40 mg PO HS Valsartan 160 mg PO BID Prednisolone Acetate/Pf [Prednisolone Acet 1% Eye Drop] 1 drop LEFT EYE Q2D Famotidine 20 mg PO BID Ibuprofen [Advil] 400 mg PO Q6HR PRN PRN Reason: Pain Metoprolol Tartrate [Lopressor] 50 mg PO BID Alendronate Sodium [Fosamax] 70 mg PO MO Aspirin 81 mg PO DAILY 90 Days #90 tab Triamterene 25 mg PO DAILY Discharge Medication List Cholecalciferol [Vitamin D3 (25 Mcg = 1000 Iu)] 25 mcg PO DAILY 06/14/20 [History] Alendronate Sodium [Fosamax] 70 mg PO MO 07/14/23 [History] Famotidine 20 mg PO BID 07/14/23 [History] Metoprolol Tartrate [Lopressor] 50 mg PO BID 07/14/23 [History] Prednisolone Acetate/Pf [Prednisolone Acet 1% Eye Drop] 1 drop LEFT EYE Q2D 07/14/23 [History] Rosuvastatin Calcium [Crestor] 40 mg PO HS 07/14/23 [History] Valsartan 160 mg PO BID 07/14/23 [History] Aspirin 81 mg PO DAILY 90 Days #90 tab 07/16/23 [Rx] Ibuprofen [Advil] 400 mg PO Q6HR PRN 03/26/24 [History] Triamterene 25 mg PO DAILY 03/26/24 [History] Follow up Appointment(s)/Referral(s): Faheem Irwin, JULIOCESAR [PHYSICIAN CADDY MASTER] - 2 Weeks Patient Instructions/Handouts: ORIF of a Wrist Fracture (DC), ORIF of a Wrist Fracture (GEN) Discharge Disposition: HOME SELF-CARE
[2024-04-01] MEDS: HYDROcodone/APAP 7.5-325MG 1 EACH TAB PO PRN (10:41)
[2024-04-06] MEDS ORDERED: NON FORMULARY DRUG (Alendronate Sodium [Fosamax] 70 MG Tablet) PO SCH (16:34)
== END 2024-04-01 14:06 | disposition home or self-care (01) ==
LOC: OR 13:32 → 5NMEDONC 16:20 → OR 04-01 14:06
PROVIDERS: ATTEND Orthopaedic Surgery
DX: S52.551A Other extraarticular fracture of lower end of right radius, initial encounter for closed fracture (principal); G89.18 Other acute postprocedural pain; I10 Essential (primary) hypertension; M81.0 Age-related osteoporosis without current pathological fracture; Z79.83 Long term (current) use of bisphosphonates; Z79.82 Long term (current) use of aspirin; Z79.899 Other long term (current) drug therapy; Z87.891 Personal history of nicotine dependence; Z88.0 Allergy status to penicillin; Z88.1 Allergy status to other antibiotic agents; Z91.018 Allergy to other foods; Z91.048 Other nonmedicinal substance allergy status; W19.XXXA Unspecified fall, initial encounter
CPT/HCPCS: 64415; 73100; 25607; C1713 ×2; J2250; J1100; J2405; J0690

== ENCOUNTER → 2024-08-03 | Outpatient (CLI) | payer MEDICARE ==
--- NOTE | 2024-08-03 14:09 | XR ---
EXAMINATION TYPE: XR foot complete RT DATE OF EXAM: 08/03/2024 2:01 PM COMPARISON: None. CLINICAL INDICATION: Female, 68 years old with history of [id number] RT FOOT INJURY, pain TECHNIQUE: XR foot complete RT XX views were obtained. FINDINGS: There is no acute fracture/dislocation evident. Healed fracture neck of the fifth metatarsal. The zack nt spaces appear within normal limits. The overlying soft tissue appears unremarkable. ORIF changes of plate fixation and screws distal fibula and tibia. IMPRESSION: No acute fracture or dislocation. [facility], , 08/03/2024 2:06 PM
== END | disposition home or self-care (01) ==
LOC: RADXRYALE 13:44
PROVIDERS: ATTEND Physician Assistant Medical
DX: S99.912A Unspecified injury of left ankle, initial encounter (principal)

== ENCOUNTER 2024-11-18 17:56 | Observation (INO) | payer MEDICARE ==
--- NOTE | 2024-11-18 18:16 | ED ---
General Adult HPI - General Chief complaint: Chest Pain Stated complaint: Chest pain Time Seen by Provider: 11/18/24 18:01 Source: patient, RN notes reviewed Mode of arrival: wheelchair Limitations: no limitations - History of Present Illness Initial comments: Patient is a 68-year-old female present to the emergency department with concerns with chest discomfort. Symptoms have been occurring the last couple of days, waxing and waning. Currently discomfort is not there. No associated dyspnea. There has been some radiation towards the left arm/shoulder as well as left jaw. Patient has had somewhat similar symptoms previously however has not been evaluated for. No known cardiac disease. Patient admits to feeling anxious. Patient states her blood pressure was as high as 200/100 earlier today. - Related Data Home Medications Medication Instructions Recorded Confirmed Cholecalciferol [Vitamin D3 (25 25 mcg PO DAILY 06/14/20 03/26/24 Mcg = 1000 Iu)] Alendronate Sodium [Fosamax] 70 mg PO MO 07/14/23 03/31/24 Famotidine 20 mg PO BID 07/14/23 03/31/24 Metoprolol Tartrate [Lopressor] 50 mg PO BID 07/14/23 03/31/24 Prednisolone Acetate/Pf 1 drop LEFT EYE Q2D 07/14/23 03/31/24 [Prednisolone Acet 1% Eye Drop] Rosuvastatin Calcium [Crestor] 40 mg PO HS 07/14/23 03/31/24 Valsartan 160 mg PO BID 07/14/23 03/31/24 Ibuprofen [Advil] 400 mg PO Q6HR PRN 03/26/24 03/26/24 Triamterene 25 mg PO DAILY 03/26/24 03/31/24 Previous Rx's Medication Instructions Recorded Aspirin 81 mg PO DAILY 90 Days #90 tab 07/16/23 Allergies Allergy/AdvReac Type Severity Reaction Status Date / Time red dye Allergy Unknown Verified 11/18/24 18:00 amoxicillin [From Augmentin] AdvReac SEVERE Verified 11/18/24 18:00 YEAST INFECTION clavulanic acid AdvReac SEVERE Verified 11/18/24 18:00 [From Augmentin] YEAST INFECTION pumpkin seeds Allergy Swelling Uncoded 03/31/24 13:48 Review of Systems ROS Statement: Those systems with pertinent positive or pertinent negative responses have been documented in the HPI. ROS Other: All systems not noted in ROS Statement are negative. Constitutional: Denies: fever Eyes: Denies: eye pain ENT: Denies: ear pain Respiratory: Denies: dyspnea Cardiovascular: Reports: as per HPI, chest pain Musculoskeletal: Denies: back pain Psychiatric: Reports: anxiety Past Medical History Past Medical History: Hypertension Additional Past Medical History / Comment(s): hx. heart murmur-no tx. FX RT ANKLE 06/14/20. Osteoperosis, fx. R wrist History of Any Multi-Drug Resistant Organisms: None Reported Past Surgical History: Hysterectomy, Orthopedic Surgery Additional Past Surgical History / Comment(s): ORIF right femur, ORIF left hip fx., ORIF left wrist, COLONOSCOPY Past Anesthesia/Blood Transfusion Reactions: No Reported Reaction Additional Past Anesthesia/Blood Transfusion Reaction / Comment(s): Has trouble waking up. Past Psychological History: No Psychological Hx Reported Smoking Status: Former smoker Past Alcohol Use History: None Reported Past Drug Use History: None Reported - Past Family History Father Family Medical History: Diabetes Mellitus Mother Family Medical History: Diabetes Mellitus, Hypertension General Exam Limitations: no limitations General appearance: alert, in no apparent distress Head exam: Present: normocephalic Eye exam: Present: normal appearance Neck exam: Present: normal inspection Respiratory exam: Present: normal lung sounds bilaterally Cardiovascular Exam: Present: regular rate, normal rhythm, normal heart sounds Expanded Peripheral pulses: 2+: Radial (R), Radial (L), Posterior Tibialis (R), Posterior Tibialis (L) GI/Abdominal exam: Present: soft. Absent: tenderness, pulsatile mass Extremities exam: Present: normal inspection. Absent: pedal edema, calf tenderness Back exam: Present: normal inspection Neurological exam: Present: alert Psychiatric exam: Present: normal affect, normal mood Skin exam: Present: normal color Course Vital Signs 11/18/24 11/18/24 11/18/24 17:58 18:35 19:11 Temperature 98.0 F Pulse Rate 83 66 63 Respiratory 16 16 16 Rate Blood Pressure 192/92 181/91 169/73 O2 Sat by Pulse 97 98 96 Oximetry 11/18/24 20:19 Temperature Pulse Rate 70 Respiratory 17 Rate Blood Pressure 157/82 O2 Sat by Pulse 97 Oximetry EKG Findings - EKG Results: EKG: interpreted by ERMD, sinus rhythm, normal axis, normal QRS, normal ST/T Medical Decision Making - Medical Decision Making Was pt. sent in by a medical professional or institution (, NILA, PRESTO LOG OPERATOR, urgent care, hospital, or intermediate...) When possible be specific @ -No Did you speak to anyone other than the patient for history (EMS, parent, family, police, friend...)? What history was obtained from this source @ -No Did you review nursing and triage notes (agree or disagree)? Why? @ -I reviewed and agree with nursing and triage notes Were old charts reviewed (outside hosp., previous admission, EMS record, old EKG, old radiological studies, urgent care reports/EKG's, intermediate records)? Report findings @ -No old charts were reviewed Differential Diagnosis (chest pain, altered mental status, abdominal pain women, abdominal pain men, vaginal bleeding, weakness, fever, dyspnea, syncope, headache, dizziness, GI bleed, back pain, seizure, CVA, palpatations, mental health, musculoskeletal)? @ -Differential Chest Pain: Stable Angina, Unstable Angina, STEMI, NSTEMI Aortic Dissection, Pneumothorax, Musculoskeletal, Esophageal Spasm GERD, Cholecystitis, Pancreatitis, Zoster, this is not meant to be an all-inclusive list. EKG interpreted by me (3pts min.). @ -As above X-rays interpreted by me (1pt min.). @ -2 view chest x-ray shows no acute process CT interpreted by me (1pt min.). @ -CT scan of the chest without pulmonary embolism. There is some foci/nodules. U/S interpreted by me (1pt. min.). @ -None done What testing was considered but not performed or refused? (CT, X-rays, U/S, labs)? Why? @ -None What meds were considered but not given or refused? Why? @ -None Did you discuss the management of the patient with other professionals (professionals i.e. , NILA, PRESTO LOG OPERATOR, lab, RT, psych nurse, community mental health social worker, propagation worker, teacher, systems support officer, insurance case manager)? Give summary @ -Case was discussed with Dr. Russo who will admit covering Dr. Monten[place] me Was smoking cessation discussed for >3mins.? @ -No Was critical care preformed (if so, how long)? @ -No Were there social determinants of health that impacted care today? How? (Homelessness, low income, unemployed, alcoholism, drug addiction, transportation, low edu. Level, literacy, decrease access to med. care, longterm, rehab)? @ -No Was there de-escalation of care discussed even if they declined (Discuss DNR or withdrawal of care, Hospice)? DNR status @ -No What co-morbidities impacted this encounter? (DM, HTN, Smoking, COPD, CAD, Cancer, CVA, ARF, Chemo, Hep., AIDS, mental health diagnosis, sleep apnea, morbid obesity)? @ -None Was patient admitted / discharged? Hospital course, mention meds given and route, prescriptions, significant lab abnormalities, going to OR and other pertinent info. @ -Patient presents with chest discomfort for couple of days, worse today. Initial evaluation unremarkable. Patient will be admitted with cardiac consult. Admission orders written. Patient reevaluated and updated. Undiagnosed new problem with uncertain prognosis? @ -No Drug Therapy requiring intensive monitoring for toxicity (Heparin, Nitro, Insulin, Cardizem)? @ -No Were any procedures done? @ -No Diagnosis/symptom? @ -Chest pain Acute, or Chronic, or Acute on Chronic? @ -Acute Uncomplicated (without systemic symptoms) or Complicated (systemic symptoms)? @ -Default Side effects of treatment? @ -No Exacerbation, Progression, or Severe Exacerbation? @ -No Poses a threat to life or bodily function? How? (Chest pain, [place], [place], pneumonia, PE, COPD, DKA, ARF, appy, cholecystitis, CVA, Diverticulitis, Homicidal, Suicidal, threat to staff... and all critical care pts) @ -Threat to cardiac function - Lab Data Result diagrams: 11/18/24 18:35 11/18/24 18:35 Lab Results 11/18/24 11/18/24 11/18/24 Range/Units 18:35 18:35 18:35 WBC 5.15 (4.50-10.00) 10*3/uL RBC 3.81 L (4.10-5.20) 10*6/uL Hgb 12.1 (12.0-15.0) g/dL Hct 35.9 L (37.2-46.3) % MCV 94.2 (80.0-97.0) fL MCH 31.8 (27.0-32.0) pg MCHC 33.7 (32.0-37.0) g/dL Plt Count 225 (140-440) 10*3/uL MPV 10.2 (9.5-12.2) fL Immature Gran % (Auto) 0.4 % Neutrophils % 47.1 % Lymphocytes % 37.1 % Monocytes % 11.5 % Eosinophils % 2.9 % Basophils % 1.0 % Immature Gran # 0.02 (0.00-0.04) 10*3/uL Neutrophils # 2.43 (1.80-7.70) 10*3/uL Lymphocytes # 1.91 (0.90-5.00) 10*3/uL Monocytes # 0.59 (0.20-1.00) 10*3/uL Eosinophils # 0.15 (0.04-0.35) 10*3/uL Basophils # 0.05 (0.00-0.10) 10*3/uL PT 10.9 (10.0-12.5) sec INR 1.0 (<1.2) APTT 23.9 (22.0-30.0) sec D-Dimer 1.01 H (<0.60) mg/L FEU Sodium 141 (137-145) mmol/L Potassium 4.0 (3.5-5.1) mmol/L Chloride 103 (98-107) mmol/L Carbon Dioxide 27 (22-30) mmol/L Anion Gap 11 mmol/L BUN 19 H (7-17) mg/dL Creatinine 0.93 (0.52-1.04) mg/dL Est GFR (CKD-EPI)AfAm 73 (>60 ml/min/1.73 sqM) Est GFR (CKD-EPI)NonAf 63 (>60 ml/min/1.73 sqM) Glucose 97 (74-99) mg/dL Calcium 10.1 (8.4-10.2) mg/dL Magnesium 2.0 (1.6-2.3) mg/dL Total Bilirubin 0.6 (0.2-1.3) mg/dL AST 39 H (14-36) U/L ALT 32 (4-34) U/L Alkaline Phosphatase 59 (38-126) U/L Troponin I (0.000-0.034) ng/mL Total Protein 7.6 (6.3-8.2) g/dL Albumin 4.6 (3.5-5.0) g/dL 11/18/24 Range/Units 18:35 WBC (4.50-10.00) 10*3/uL RBC (4.10-5.20) 10*6/uL Hgb (12.0-15.0) g/dL Hct (37.2-46.3) % MCV (80.0-97.0) fL MCH (27.0-32.0) pg MCHC (32.0-37.0) g/dL Plt Count (140-440) 10*3/uL MPV (9.5-12.2) fL Immature Gran % (Auto) % Neutrophils % % Lymphocytes % % Monocytes % % Eosinophils % % Basophils % % Immature Gran # (0.00-0.04) 10*3/uL Neutrophils # (1.80-7.70) 10*3/uL Lymphocytes # (0.90-5.00) 10*3/uL Monocytes # (0.20-1.00) 10*3/uL Eosinophils # (0.04-0.35) 10*3/uL Basophils # (0.00-0.10) 10*3/uL PT (10.0-12.5) sec INR (<1.2) APTT (22.0-30.0) sec D-Dimer (<0.60) mg/L FEU Sodium (137-145) mmol/L Potassium (3.5-5.1) mmol/L Chloride (98-107) mmol/L Carbon Dioxide (22-30) mmol/L Anion Gap mmol/L BUN (7-17) mg/dL Creatinine (0.52-1.04) mg/dL Est GFR (CKD-EPI)AfAm (>60 ml/min/1.73 sqM) Est GFR (CKD-EPI)NonAf (>60 ml/min/1.73 sqM) Glucose (74-99) mg/dL Calcium (8.4-10.2) mg/dL Magnesium (1.6-2.3) mg/dL Total Bilirubin (0.2-1.3) mg/dL AST (14-36) U/L ALT (4-34) U/L Alkaline Phosphatase (38-126) U/L Troponin I <0.012 (0.000-0.034) ng/mL Total Protein (6.3-8.2) g/dL Albumin (3.5-5.0) g/dL Disposition Clinical Impression: Chest pain Disposition: ADMITTED IP TO THIS HOSP Is patient prescribed a controlled substance at d/c from ED?: No Referrals: Dmitriy Miller DO [Primary Care Provider] - 1-2 days Time of Disposition: 20:33
[2024-11-18] MEDS: ASPIRIN 81 MG PO STA (18:31)
[2024-11-18 18:47] LABS: Basophils # (A) 0.05 10*3/uL (0.00-0.10); Basophils % (A) 1.0 %; Eosinophils # (A) 0.15 10*3/uL (0.04-0.35); Eosinophils % (A) 2.9 %; HCT 35.9 % (37.2-46.3); HGB 12.1 g/dL (12.0-15.0); Lymphocytes # (A) 1.91 10*3/uL (0.90-5.00); Lymphocytes % (A) 37.1 %; MCH 31.8 pg (27.0-32.0); MCHC 33.7 g/dL (32.0-37.0); MCV 94.2 fL (80.0-97.0); Monocytes # (A) 0.59 10*3/uL (0.20-1.00); Monocytes % (A) 11.5 %; Neutrophils # (A) 2.43 10*3/uL (1.80-7.70); Neutrophils % (A) 47.1 %; Platelet Count 225 10*3/uL (140-440); RBC 3.81 10*6/uL (4.10-5.20); RDW 13.2 % (11.5-14.5); WBC 5.15 10*3/uL (4.50-10.00)
--- NOTE | 2024-11-18 18:53 | XR ---
EXAMINATION TYPE: XR chest 2V DATE OF EXAM: 11/18/2024 6:46 PM CLINICAL INDICATION:Female, 68 years old with history of Chest Pain; [facility] COMPARISON: Chest radiographs from 10/19/2024 TECHNIQUE: XR chest 2V Frontal view of the chest. FINDINGS: Lungs/Pleura: There is flattening of the diaphragm with increased lucency of the lungs. No evidence o f pneumothorax, pleural effusion or focal consolidation. Pulmonary vascularity: Unremarkable. Heart/mediastinum: Cardiomediastinal silhouette is unremarkable. Musculoskeletal: No acute osseous pathology. IMPRESSION: Emphysematous appearance of the lungs with no acute cardiopulmonary disease/process. [facility], , 11/18/2024 6:51 PM
[2024-11-18 18:58] LABS: ALT 32 U/L (4-34); AST 39 U/L (14-36); African American GFR (CKD) 73 (>60 ml/min/1.73 sqM); Albumin 4.6 g/dL (3.5-5.0); Alkaline Phosphatase 59 U/L (38-126); Anion Gap 11 mmol/L; Blood Urea Nitrogen 19 mg/dL (7-17); Calcium 10.1 mg/dL (8.4-10.2); Carbon Dioxide 27 mmol/L (22-30); Chloride 103 mmol/L (98-107); Glucose 97 mg/dL (74-99); Magnesium 2.0 mg/dL (1.6-2.3); Non-African American GFR(CKD) 63 (>60 ml/min/1.73 sqM); Potassium 4.0 mmol/L (3.5-5.1); Sodium 141 mmol/L (137-145); Total Protein 7.6 g/dL (6.3-8.2)
[2024-11-18 19:18] LABS: INR 1.0 (<1.2); Partial Thromboplastin Time 23.9 sec (22.0-30.0); Prothrombin Time 10.9 sec (10.0-12.5)
[2024-11-18] MEDS ORDERED: NITROGLYCERIN SL TABS 0.4 MG TAB SUBLINGUAL PRN (20:31)
--- NOTE | 2024-11-18 20:33 | CT ---
EXAMINATION TYPE: CT angio chest CT DLP: 190.1 mGycm, Automated exposure control for dose reduction was used. DATE OF EXAM: 11/18/2024 8:07 PM COMPARISON: CT chest 07/07/2024. CLINICAL INDICATION:Female, 68 years old with history of cp; ELEVATED D-DIMER TECHNIQUE/CONTRAST: CTA scan of the thorax is performed with IV Contrast, patient injected with 100 ml mL of Isovue 370, MIP images are created and reviewed these are created on a separate workstation.. FINDINGS: Pulmonary Artery: There is no evidence for a filling defect within the pulmonary vasculature to sugge st acute pulmonary embolism. The pulmonary artery is of normal size. Lungs/Pleura: There are redemonstrated scattered groundglass attenuations in the bilateral lungs whic h appear slightly more conspicuous than the prior exam in reference with the dominant focus seen in t he subpleural left upper lobe measuring up to 2.0 cm. No evidence of pleural effusion or pneumothorax . Airway: Large airways are patent. Heart: Heart is within normal limits for size. Left ventricular hypertrophy is suggested. Vasculature: No evidence of aortic aneurysm. Mediastinum: No gross evidence of adenopathy. Musculoskeletal: Similar multilevel compression deformities of the thoracic spine are seen stable in appearance with no acute osseous abnormalities. Soft Tissues/lymph nodes: Unremarkable. Lower neck: No significant findings. Upper Abdomen: Small hiatal hernia. Subcentimeter hypodense focus noted in the left hepatic lobe too small to characterize. IMPRESSION: 1. No evidence of pulmonary embolism. 2. Redemonstrated scattered groundglass attenuated foci/nodules are seen within the dominant of these in the left upper lobe measuring up to 2.0 cm. These do appear slightly more conspicuous than the pr ior exam. These findings could represent an inflammatory/infectious process however a neoplastic proc ess cannot be excluded. Recommend PET/CT and further workup for further characterization. 3. Left ventricular hypertrophy is suggested. 4. Redemonstrated multiple compression deformities of the thoracic spine. [facility], , 11/18/2024 8:31 PM
--- NOTE | 2024-11-18 21:31 | P.HPIM ---
History of Present Illness H&P Date: 11/18/24 Chief Complaint: Chest pain This is a 68-year-old female patient with a past medical history of essential hypertension and osteoporosis who presents to the ER with a chief complaint of chest pain. Patient reports that her chest pain started last Saturday and she describes her pain as pressure-like, located substernally and radiating to the left arm and left-sided jaw, intermittent on and off . No alleviating or exacerbating factor. Not reproducible with palpation. No reports of shortness of breath, fever, chills or upper respiratory-like symptoms. No known cardiac disease. 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 She did report having a stress test which was chemical last year and normal per patient. She does report having on and off chest pain last year . Upon arrival to the ED her blood pressure was 200/100. She received full dose of aspirin. Initial set of troponin was not elevated. D-dimer was 1.[address] PE protocol was negative for pulmonary embolism but showing scattered groundglass foci/nodules were seen within the left upper lobe measuring up to 2 cm. Which may represent inflammatory/infectious process . However a neoplastic process cannot be excluded. Recommendation for PET/CT for further characterization/ve ntricular hypertrophy was seen as well. He is currently chest pain-free Medical history : Hypertension, osteoporosis, dyslipidemia Past surgical history : None Social history : Former smoker, occasional alcohol use, and no illicit drug use Review of system : Negative except mentioned HPI PE: General: nontoxic, no distress, appears at stated age Derm: warm, dry, intact Head: atraumatic, normocephalic, symmetric Eyes: EOMI, anicteric sclera Mouth: no lip lesion, mucus membranes moist Cardiovascular: S1 S2 reg, no murmur, rubs, or gallops Lungs: CTA bilateral, no rales, no accessory muscle use Abdominal: soft, non-tender to palpataion, no appreciable organomegaly Extremities: no gross muscle atrophy, no edema, no contractures Neuro: Alert, Oriented, CNII-XII grossly intact, gait normal Psych: well appearing, appropriate affect Assessment and plan : - Atypical chest pain : Differential diagnosis including cardiac versus inflammatory/infectious process versus neoplastic First set of troponin was not elevated Chest x-ray was not remarkable EKG did not show any ischemic changes CT of the chest was showing groundglass opacity/nodule measuring up to 2 cm. May represent an inflammatory/infectious process. neoplastic process cannot be ruled out Cardiology consulted and echocardiogram was ordered Last stress test was a year ago and it was negative per patient Will continue on trending troponin Consider consulting pulmonology to further assess the groundglass opacity Will give one-time dose of Levaquin and order procalcitonin Will order a COVID/RSV/influenza PCR test -Accelerated hypertension : Continue valsartan and metoprolol -Dyslipidemia : Continue rosuvastatin CODE STATUS is full code DVT prophylaxis on heparin subcu Time spent : 55 min Past Medical History Past Medical History: Hypertension Additional Past Medical History / Comment(s): hx. heart murmur-no tx. FX RT ANKLE 06/14/20. Osteoperosis, fx. R wrist History of Any Multi-Drug Resistant Organisms: None Reported Past Surgical History: Hysterectomy, Orthopedic Surgery Additional Past Surgical History / Comment(s): ORIF right femur, ORIF left hip fx., ORIF left wrist, COLONOSCOPY Past Anesthesia/Blood Transfusion Reactions: No Reported Reaction Additional Past Anesthesia/Blood Transfusion Reaction / Comment(s): Has trouble waking up. Past Psychological History: No Psychological Hx Reported Smoking Status: Former smoker Past Alcohol Use History: None Reported Past Drug Use History: None Reported - Past Family History Father Family Medical History: Diabetes Mellitus Mother Family Medical History: Diabetes Mellitus, Hypertension Medications and Allergies Home Medications Medication Instructions Recorded Confirmed Type Cholecalciferol [Vitamin D3 (25 25 mcg PO DAILY 06/14/20 03/26/24 History Mcg = 1000 Iu)] Alendronate Sodium [Fosamax] 70 mg PO MO 07/14/23 03/31/24 History Famotidine 20 mg PO BID 07/14/23 03/31/24 History Metoprolol Tartrate [Lopressor] 50 mg PO BID 07/14/23 03/31/24 History Prednisolone Acetate/Pf 1 drop LEFT EYE Q2D 07/14/23 03/31/24 History [Prednisolone Acet 1% Eye Drop] Rosuvastatin Calcium [Crestor] 40 mg PO HS 07/14/23 03/31/24 History Valsartan 160 mg PO BID 07/14/23 03/31/24 History Aspirin 81 mg PO DAILY 90 Days #90 tab 07/16/23 03/26/24 Rx Ibuprofen [Advil] 400 mg PO Q6HR PRN 03/26/24 03/26/24 History Triamterene 25 mg PO DAILY 03/26/24 03/31/24 History Allergies Allergy/AdvReac Type Severity Reaction Status Date / Time red dye Allergy Unknown Verified 11/18/24 18:00 amoxicillin [From Augmentin] AdvReac SEVERE Verified 11/18/24 18:00 YEAST INFECTION clavulanic acid AdvReac SEVERE Verified 11/18/24 18:00 [From Augmentin] YEAST INFECTION pumpkin seeds Allergy Swelling Uncoded 03/31/24 13:48 Physical Exam Vitals: Vital Signs Temp Pulse Resp BP Pulse Ox 11/18/24 20:19 70 17 157/82 97 11/18/24 19:11 63 16 169/73 96 11/18/24 18:35 66 16 181/91 98 11/18/24 17:58 98.0 F 83 16 192/92 97 Intake and Output 11/18/24 11/18/24 11/18/24 06:59 14:59 22:59 Other: Weight 52.163 kg Results CBC & Chem 7: 11/18/24 18:35 11/18/24 18:35 Labs: Abnormal Lab Results - Last 24 Hours (Table) 11/18/24 11/18/24 11/18/24 Range/Units 18:35 18:35 18:35 RBC 3.81 L (4.10-5.20) 10*6/uL Hct 35.9 L (37.2-46.3) % D-Dimer 1.01 H (<0.60) mg/L FEU BUN 19 H (7-17) mg/dL AST 39 H (14-36) U/L
[2024-11-18] MEDS: VALSARTAN 160 MG TAB PO SCH (21:50)
[2024-11-18] MEDS: HEPARIN SODIUM,PORCINE 5,000 UNIT/ML 1 ML VIAL SQ SCH (21:59)
[2024-11-18] MEDS: LEVOFLOXACIN 750MG-D5W PMX 750 MG in DEXTROSE/WATER 1 150ML.BAG IVPB ONE (22:00)
[2024-11-19 06:34] VITALS: RESP 16
[2024-11-19] MEDS: ASPIRIN 81 MG PO SCH (08:46)
[2024-11-19] MEDS: METOPROLOL TARTRATE 50 MG TAB PO SCH (08:46)
[2024-11-19] MEDS: amLODIPine 5 MG TAB PO SCH (08:46)
[2024-11-19] MEDS ORDERED: amLODIPine 10 MG TAB PO SCH (09:00)
[2024-11-19] MEDS ORDERED: ASPIRIN 325 MG TAB PO SCH (09:00)
--- NOTE | 2024-11-19 10:41 | P.DS ---
Providers Date of admission: 11/18/24 20:32 Expected date of discharge: 11/19/24 Attending physician: Timi Olmedo MD Consults: 11/18/24 20:31 Consult Physician Urgent Consulting Provider: Zhen Lo Consult Reason/Comments: cp Do you want consulting provider notified?: Yes Primary care physician: Dmitriy Miller [facility] Course: Discharge Diagnosis: Chest pain, acute coronary event ruled out. Hypertensive urgency History of hypertension Osteoporosis History of nicotine use CT revealed scattered groundglass foci/nodules within the left upper lobe measuring up to 2 cm, patient was instructed that she will need further evaluation of these finding. This likely represents an inflammatory/infectious process but cannot rule out other causes until further workup is completed. Recommend outpatient repeat CT scan or PET scan imaging after completion of empiric antibiotic course with Levaquin x 5 days . Called to discuss CT findings with patient's PCP, Dr. Miller and a message was left with office staff (Sahra) to notify them of CT findings and need for repeat testing. Hospital Course: Patient is a pleasant 68-year-old female with a past medical history of hypertension osteoporosis. She presented to the hospital in 11/18/2024 with a chief complaint of chest pain. Upon arrival to our facility, patient underwent evaluation in the emergency department. Vital signs upon arrival show blood pressure 192/92, heart rate 83, respiratory rate 16, temp 98.0 F, and SpO2 of 97% on room air. Completed 73 bpm with T wave or ST abnormalities showing no signs of acute ischemia upon personal review and interpretation. Chest x-ray completed showing emphysematous changes with flattening of the diaphragms and i ncreased lucency of lungs but negative for acute cardiopulmonary process. Labs completed and reviewed. CBC showing hematocrit of 35.9 otherwise normal findings. Coagulation profile showing elevated D-dimer of 1.01. BMP showing mild prerenal azotemia with BUN of 19. Blood glucose 97. Calcium 10.1. Magnesium 2.0. Liver profile showing elevated AST of 39 otherwise normal findings. Troponin was negative at less than 0.012. Procalcitonin also negative at less than 0.20. COVID PCR negative. CTA chest was negative for pulmonary emboli showing left ventricular hypertrophy with redemonstrated multiple compression deformities of the thoracic spine and redemonstration of scattered groundglass potentially weighted foci/nodules within the dominant of these in the left upper lobe measuring up to 2 cm reported to appear slightly more conspicuous than prior exam possibly representing inflammatory/infectious process for neoplastic process cannot be excluded. Patient was admitted under services with consultation to cardiology. Troponins were trended all negative at less than 0.012 x 3 draws. Lipid profile unremarkable. Cardiology evaluated stated patient can follow-up outpatient for echocardiogram and stress testing once blood pressure is better controlled. Blood pressure currently 140/69 with heart rate of 72. Discussed with cardiology FLATWORK ASSEMBLER clearing patient for discharge at this time. Patient to follow-up outpatient with Dr. Lo for further workup and evaluation. Patient to continue metoprolol 50 mg twice daily, valsartan 160 mg twice daily and was discharged home on amlodipine 5 mg daily. Physical Exam: Patient seen and examined at bedside. She reports being free from any chest pain or discomfort since shortly after arrival to our facility and denies having any other complaints including dizziness, lightheadedness, palpitations, shortness of breath, or experiencing any numbness/tingling/weakness in her extremities. Vital signs reviewed and stable. General: Nontoxic, no distress and appears stated age. Derm: Skin warm and dry, normal coloration for ethnicity. Head: Atraumatic, normocephalic and symmetric. Eyes: EOM's intact, no lid lag, and anicteric sclera Mouth: no lip lesions, mucus membranes moist Cardiovascular: regular rate and rhythm with normal S1S2, no murmur, positive posterior tibial pulses bilaterally, and cap refill < 2 seconds. Lungs: Respirations even, regular, and unlabored on room air. Lungs CTA bilaterally, no rhonchi, no rales, no wheezing, and no accessory muscle usage. Abdominal: soft, nontender to palpation, no guarding, no appreciable organomegaly Ext: ROM intact. No gross muscle atrophy, no edema, no contractures Neuro: Speech clear, face symmetrical and CN II-XII grossly intact with no noted focal neuro deficits Psych: Alert and oriented to person, place, time, and situation. Appropriate and pleasant affect. A total of 35 minutes of time were spent preparing this complex discharge summary. Pt was discharged on 11/19/2024 at 10:32 AM Patient was seen independently by Nurse Practitioner. This document was prepared using [employer] dictation software. Please allow for errors in tool design draftsperson while rare they do occur. Rufus Олег, FLATWORK ASSEMBLER rendered care for this patient independently, reviewed the findings and plan as documented in the note above. I did not physically speak with or examine the patient on this date. Patient Condition at Discharge: Stable Plan - Discharge Summary New Discharge Prescriptions: New amLODIPine [Norvasc] 5 mg PO DAILY 30 Days #30 tab Levofloxacin [Levaquin] 500 mg PO DAILY 4 Days #4 tab Continue Cholecalciferol [Vitamin D3 (25 Mcg = 1000 Iu)] 25 mcg PO DAILY Rosuvastatin Calcium [Crestor] 40 mg PO HS Valsartan 160 mg PO BID Famotidine 20 mg PO BID Ezetimibe [Zetia] 10 mg PO DAILY Metoprolol Tartrate [Lopressor] 50 mg PO BID Alendronate Sodium [Fosamax] 70 mg PO MO Aspirin 81 mg PO DAILY 90 Days #90 tab Calcium Citrate/Vitamin D3 [Citracal + D Maximum Caplet] 1 tab PO DAILY levETIRAcetam [Keppra] 500 mg PO Q12HR Discharge Medication List Cholecalciferol [Vitamin D3 (25 Mcg = 1000 Iu)] 25 mcg PO DAILY 06/14/20 [History] Alendronate Sodium [Fosamax] 70 mg PO MO 07/14/23 [History] Famotidine 20 mg PO BID 07/14/23 [History] Metoprolol Tartrate [Lopressor] 50 mg PO BID 07/14/23 [History] Rosuvastatin Calcium [Crestor] 40 mg PO HS 07/14/23 [History] Valsartan 160 mg PO BID 07/14/23 [History] Aspirin 81 mg PO DAILY 90 Days #90 tab 07/16/23 [Rx] Calcium Citrate/Vitamin D3 [Citracal + D Maximum Caplet] 1 tab PO DAILY 11/19/24 [History] Ezetimibe [Zetia] 10 mg PO DAILY 11/19/24 [History] Levofloxacin [Levaquin] 500 mg PO DAILY 4 Days #4 tab 11/19/24 [Rx] amLODIPine [Norvasc] 5 mg PO DAILY 30 Days #30 tab 11/19/24 [Rx] levETIRAcetam [Keppra] 500 mg PO Q12HR 11/19/24 [History] Follow up Appointment(s)/Referral(s): Zhen Lo MD [STAFF PHYSICIAN] - 1 Week Dmitriy Miller DO [Primary Care Provider] - 1-2 days Patient Instructions/Handouts: Chest Pain (DC), Hypertensive Crisis (DC) Activity/Diet/Wound Care/Special Instructions: Activity: As tolerated. Take breaks as needed. Diet: Heart healthy and carb consistent diet. Avoid salts, or foods with hidden salts such as canned or boxed foods and frozen dinners. Extra salt makes your heart work harder, causes blood pressure to elevate and traps the fluid in your body for longer. Special Instructions: Take all of your medications as directed and remember to keep all of your doctor's appointments and follow-up as needed. CT revealed scattered groundglass foci/nodules within the left upper lobe measuring up to 2 cm, you will need further evaluation of these finding. This likely represents an inflammatory/infectious process but cannot rule out other causes until further workup is completed. Recommend outpatient repeat CT scan or PET scan imaging after completion of antibiotic course. This can be ordered by your PCP, Dr. Miller and a message was left with office staff (Sahra) to notify them of need for repeat testing. Thank you for allowing us to participate in your care, it was truly a pleasure having you for our patient!!! Discharge Disposition: HOME SELF-CARE
[2024-11-19] MEDS: levETIRAcetam 500 MG TAB PO STA (10:52)
[2024-11-19 10:59] VITALS: BP 153/81; PULSE 61; TEMP 97.9
--- NOTE | 2024-11-19 11:18 | P.CRDCN ---
History of Present Illness History of present illness: HISTORY OF PRESENT ILLNESS: This is a 68-year-old female with a past medical history significant for hypertension, hyperlipidemia, and former nicotine dependence. Patient follows in the office with Dr. Lo. We have been asked to see the patient in consultation for chest pain. Patient examined at the bedside in the emergency room. Patient presented to the hospital for chief complaint of chest discomfort. Patient states her blood pressures have been running high at home. Blood pressure was noted to be 192/92 upon admission to the hospital. She denies any chest pain or pressure this morning. Denies any shortness of breath. Blood pressure this morning 163/73. EKG reveals sinus mechanism with no signs of acute ischemia. Troponins are negative. Patient did undergo Lexiscan stress test in January 2024 which was negative for ischemia. REVIEW OF SYSTEMS: At the time of my exam: CONSTITUTIONAL: Denies fever or chills. HEENT: Denies blurred vision, vision changes, or eye pain. Denies hemoptysis CARDIOVASCULAR: Denies chest pain. Denies orthopnea. Denies PND. Denies palpitations RESPIRATORY: Denies shortness of breath. GASTROINTESTINAL: Denies abdominal pain. Denies nausea or vomiting. HEMATOLOGIC: Denies bleeding disorders. GENITOURINARY: Denies any blood in urine. SKIN: Denies pruitis. Denies rash. PHYSICAL EXAM: VITAL SIGNS: Reviewed. GENERAL: Well-developed in no acute distress. HEENT: Head is normocephalic. Pupils are equal, round. Sclerae anicteric. Mucous membranes of the mouth are moist. Neck supple. No JVD or thyromegaly LUNGS: Respirations even and unlabored. Lungs essentially clear to auscultation bilaterally. HEART: Regular rate and rhythm. S1 and S2 heard. ABDOMEN: Soft. Nondistended. Nontender. EXTREMITIES: Normal range of motion. No clubbing or cyanosis. Peripheral pulses intact. No lower extremity edema NEUROLOGIC: Awake and alert. Oriented x 3. ASSESSMENT: Hypertensive emergency Chest pain, troponin negative x 3, likely secondary to above History of hypertension History of hyperlipidemia Former nicotine dependence PLAN: An acute coronary event has been ruled out Obtain 2D echo to assess cardiac structure and function Add amlodipine 5 mg daily Continue to monitor blood pressure Will plan for outpatient stress testing Further recommendations pending patient course Patient to follow-up postdischarge with Dr. Lo Nurse practitioner note has been reviewed by physician. Signing provider agrees with the documented findings, assessment, and plan of care documented by DIAMOND DIE POLISHER as a scribe. Past Medical History Past Medical History: Hypertension Additional Past Medical History / Comment(s): hx. heart murmur-no tx. FX RT ANKLE 06/14/20. Osteoperosis, fx. R wrist History of Any Multi-Drug Resistant Organisms: None Reported Past Surgical History: Hysterectomy, Orthopedic Surgery Additional Past Surgical History / Comment(s): ORIF right femur, ORIF left hip fx., ORIF left wrist, COLONOSCOPY Past Anesthesia/Blood Transfusion Reactions: No Reported Reaction Additional Past Anesthesia/Blood Transfusion Reaction / Comment(s): Has trouble waking up. Past Psychological History: No Psychological Hx Reported Smoking Status: Former smoker Past Alcohol Use History: None Reported Past Drug Use History: None Reported - Past Family History Father Family Medical History: Diabetes Mellitus Mother Family Medical History: Diabetes Mellitus, Hypertension Medications and Allergies Home Medications Medication Instructions Recorded Confirmed Type Cholecalciferol [Vitamin D3 (25 25 mcg PO DAILY 06/14/20 11/19/24 History Mcg = 1000 Iu)] Alendronate Sodium [Fosamax] 70 mg PO MO 07/14/23 11/19/24 History Famotidine 20 mg PO BID 07/14/23 11/19/24 History Metoprolol Tartrate [Lopressor] 50 mg PO BID 07/14/23 11/19/24 History Rosuvastatin Calcium [Crestor] 40 mg PO HS 07/14/23 11/19/24 History Valsartan 160 mg PO BID 07/14/23 11/19/24 History Aspirin 81 mg PO DAILY 90 Days #90 tab 07/16/23 11/19/24 Rx Calcium Citrate/Vitamin D3 1 tab PO DAILY 11/19/24 11/19/24 History [Citracal + D Maximum Caplet] Ezetimibe [Zetia] 10 mg PO DAILY 11/19/24 11/19/24 History Levofloxacin [Levaquin] 500 mg PO DAILY 4 Days #4 tab 11/19/24 Rx amLODIPine [Norvasc] 5 mg PO DAILY 30 Days #30 tab 11/19/24 Rx levETIRAcetam [Keppra] 500 mg PO Q12HR 11/19/24 11/19/24 History Allergies Allergy/AdvReac Type Severity Reaction Status Date / Time red dye Allergy Unknown Verified 11/19/24 08:53 amoxicillin [From Augmentin] AdvReac SEVERE Verified 11/19/24 08:53 YEAST INFECTION clavulanic acid AdvReac SEVERE Verified 11/19/24 08:53 [From Augmentin] YEAST INFECTION pumpkin seeds Allergy Swelling Uncoded 11/19/24 08:53 Physical Exam Vitals: Vital Signs Temp Pulse Resp BP Pulse Ox 11/19/24 10:58 97.9 F 61 16 153/81 98 11/19/24 07:24 97 F L 73 16 163/73 98 11/19/24 06:33 90 16 131/87 99 11/19/24 03:46 63 18 136/83 97 11/19/24 01:10 56 L 16 127/76 97 11/18/24 23:51 71 20 134/87 98 11/18/24 22:04 79 17 123/68 96 11/18/24 20:19 70 17 157/82 97 11/18/24 19:11 63 16 169/73 96 11/18/24 18:35 66 16 181/91 98 11/18/24 17:58 98.0 F 83 16 192/92 97 Intake and Output 11/18/24 11/19/24 11/19/24 22:59 06:59 14:59 Other: Weight 52.163 kg Results 11/18/24 18:35 11/18/24 18:35 Cardiac Enzymes 11/18/24 11/18/24 11/18/24 Range/Units 18:35 18:35 21:20 AST 39 H (14-36) U/L Troponin I <0.012 <0.012 (0.000-0.034) ng/mL 11/18/24 Range/Units 23:49 AST (14-36) U/L Troponin I <0.012 (0.000-0.034) ng/mL Coagulation 11/18/24 Range/Units 18:35 PT 10.9 (10.0-12.5) sec APTT 23.9 (22.0-30.0) sec CBC 11/18/24 Range/Units 18:35 WBC 5.15 (4.50-10.00) 10*3/uL RBC 3.81 L (4.10-5.20) 10*6/uL Hgb 12.1 (12.0-15.0) g/dL Hct 35.9 L (37.2-46.3) % Plt Count 225 (140-440) 10*3/uL Comprehensive Metabolic Panel 11/18/24 Range/Units 18:35 Sodium 141 (137-145) mmol/L Potassium 4.0 (3.5-5.1) mmol/L Chloride 103 (98-107) mmol/L Carbon Dioxide 27 (22-30) mmol/L BUN 19 H (7-17) mg/dL Creatinine 0.93 (0.52-1.04) mg/dL Glucose 97 (74-99) mg/dL Calcium 10.1 (8.4-10.2) mg/dL AST 39 H (14-36) U/L ALT 32 (4-34) U/L Alkaline Phosphatase 59 (38-126) U/L Total Protein 7.6 (6.3-8.2) g/dL Albumin 4.6 (3.5-5.0) g/dL Current Medications Generic Name Dose Route Start Last Admin Trade Name Freq PRN Reason Stop Dose Admin Amlodipine Besylate 5 mg 11/19/24 09:00 11/19/24 08:46 Amlodipine 5 Mg Tab PO 5 mg DAILY SUKUMAR Administration Aspirin 81 mg 11/19/24 09:00 11/19/24 08:46 Aspirin 81 Mg PO 81 mg DAILY SUKUMAR Administration Atorvastatin Calcium 80 mg 11/19/24 21:00 Atorvastatin 80 Mg Tab PO HS [facility] Heparin Sodium (Porcine) 5,000 unit 11/18/24 21:45 11/19/24 08:48 Heparin Sodium,Porcine 5,000 Unit/Ml 1 Ml Vial SQ 5,000 unit Q12HR SUKUMAR Administration Metoprolol Tartrate 50 mg 11/19/24 09:00 11/19/24 08:46 Metoprolol Tartrate 50 Mg Tab PO 50 mg BID SUKUMAR Administration Nitroglycerin 0.4 mg 11/18/24 20:31 Nitroglycerin Sl Tabs 0.4 Mg Tab SUBLINGUAL Q5M PRN Chest Pain Valsartan 160 mg 11/18/24 21:30 11/19/24 08:46 Valsartan 160 Mg Tab PO 160 mg BID SUKUMAR Administration Intake and Output 11/18/24 11/19/24 11/19/24 22:59 06:59 14:59 Other: Weight 52.163 kg 11/18/24 18:35 11/18/24 18:35
[2024-11-19 11:58] LABS: Cholesterol 132.00 mg/dL (0.00-200.00); HDL Cholesterol 66.10 mg/dL (40.00-60.00); LDL Cholesterol,Calculated 51.6 mg/dL (0.0-131.0); Triglycerides 71.70 mg/dL (0.00-149.00); VLDL Calculation 14.34 mg/dL (5.00-40.00)
[2024-11-19] MEDS ORDERED: ATORVASTATIN 80 MG TAB PO SCH (21:00)
== END 2024-11-19 11:47 | disposition home or self-care (01) ==
LOC: EC 17:56 → 6NMEDSUR 20:32
PROVIDERS: ADMIT Student in an Organized Health Care Education/Training Program; ATTEND Student in an Organized Health Care Education/Training Program
DX: I16.0 Hypertensive urgency (principal); I10 Essential (primary) hypertension; R74.01 Elevation of levels of liver transaminase levels; R79.89 Other specified abnormal findings of blood chemistry; R91.8 Other nonspecific abnormal finding of lung field; M81.0 Age-related osteoporosis without current pathological fracture; E78.5 Hyperlipidemia, unspecified; Z87.891 Personal history of nicotine dependence; Z79.82 Long term (current) use of aspirin; Z79.83 Long term (current) use of bisphosphonates; Z79.899 Other long term (current) drug therapy; Z88.0 Allergy status to penicillin; Z88.8 Allergy status to other drugs, medicaments and biological substances
CPT/HCPCS: 96365; 96366; 96372 ×2; 99285; 36415; 93005; 85379; 80061; 80053; 83735; 84484; 85025; 85610; 85730; 84145; 87635; 71046; 71275; G0378 ×2; J1644 ×2; J1956; Q9967

== ENCOUNTER → 2024-12-04 | Outpatient (CLI) | payer MEDICARE ==
--- NOTE | 2024-12-06 07:56 | PE ---
EXAMINATION TYPE: PET CT fusion skull to thigh DATE OF EXAM: 12/04/2024 CLINICAL INDICATION:Female, 68 years old with history of M41.114; TECHNIQUE: Following the intravenous administration of 11.28 mCi of F-18 FDG, whole body images are performed from the skull base to the midthigh. Images are reviewed on the computer in the coronal, axial, and sagittal planes. Reconstructed rotating images are created on independent workstation and reviewed on the computer. A non-contrast CT is performed in conjunction with the PET scan. Glucose level 88 mg/dL CT DLP: 896 mGycm, Automated exposure control for dose reduction was used. COMPARISON: CT 11/18/2024, 07/07/2024, 10/24/2023, 08/15/2023, 01/29/2023, PET/CT None, MRI: None FINDINGS: Mediastinal SUV mean is 2.6. Hepatic parenchyma SUV mean is 3. SKULL BASE AND NECK: No suspicious radiotracer activity. CHEST, MEDIASTINUM, AND HILAR REGION: Unchanged posterior lateral left upper lobe subpleural patchy groundglass/consolidative opacity measu ring to 2.3 cm. Demonstrates a max SUV of 1.7. Unchanged right upper lobe 1 cm groundglass opacity wi th a max SUV of 1.7. Unchanged right upper lobe 6 mm pulmonary nodule with a maximum SUV 1.2. Unchang ed right apical 4 mm pulmonary nodule opacity. No FDG activity. None of these demonstrate FDG activit y above background. ABDOMEN AND PELVIS: No suspicious radiotracer activity. MUSCULOSKELETAL STRUCTURES: No suspicious radiotracer activity. OTHER CT: Bilateral carotid bulb calcifications. Subcentimeter right thyroid lobe nodule. Atheroscler otic calcification of the aorta and its branches. Mild coronary artery calcifications. Mild cardiomeg irish. Pelvic phleboliths. Postfixation changes with intramedullary randall and fixation screws involving b oth visualized proximal femurs. Multilevel compression deformities of the thoracic spine redemonstrat ed. IMPRESSION: Redemonstration of scattered groundglass opacities/nodules from prior exam. These demonstrate FDG act ivity below background levels. Favored to represent infectious/inflammatory opacity/nodules however c annot exclude low metabolic malignancy. Follow-up CT chest in 3 months is recommended. [facility], , 12/06/2024 7:53 AM
== END | disposition home or self-care (01) ==
LOC: RADPETMAIN 13:36
PROVIDERS: ATTEND Family Medicine
DX: R91.8 Other nonspecific abnormal finding of lung field (principal); J44.9 Chronic obstructive pulmonary disease, unspecified
CPT/HCPCS: 78815; A9552